=== PATIENT | female | born 1935 | race Caucasian/White ===

== ENCOUNTER 2017-09-13 08:00 | Outpatient (CLI) | payer MEDICARE, OTHER ==
[2017-09-13 19:03] LABS: BASOPHILS % (AUTO) 0.9 %; EOSINOPHILS # (AUTO) 0.2 10^3/uL (0.0-0.7); EOSINOPHILS % (AUTO) 4.6 %; HCT - HEMATOCRIT 41.9 % (37.0-47.0); HGB - HEMOGLOBIN 13.5 g/dL (12.0-16.0); LYMPHOCYTES # (AUTO) 1.3 10^3/uL (1.5-3.5); MEAN CORPUSCULAR HEMOGLOBIN 28.9 pg (27.0-31.0); MEAN CORPUSCULAR HGB CONC 32.2 g/dL (32.0-36.0); MEAN CORPUSCULAR VOLUME 89.6 fL (81.0-99.0); MEAN PLATELET VOLUME 9.1 fL (7.9-10.8); MONOCYTES # (AUTO) 0.5 10^3/uL (0.0-1.0); MONOCYTES % (AUTO) 9.5 %; NEUTROPHILS # (AUTO) 2.9 10^3/uL (1.5-6.6); RED BLOOD COUNT 4.68 10^6/uL (4.20-5.40); RED CELL DISTRIBUTION WIDTH 14.6 % (12.0-15.0)
[2017-09-13 19:38] LABS: ALBUMIN/GLOBULIN RATIO 1.3 (1.0-2.2); BILIRUBIN,TOTAL 0.5 mg/dL (0.2-1.0); BUN - BLOOD UREA NITROGEN 16 mg/dL (6-20); CALCIUM 8.9 mg/dL (8.5-10.3); CARBON DIOXIDE - CO2 25 mmol/L (21-32); CHLORIDE 108 mmol/L (101-111); CHOL/HDL RATIO 2.7 (<4.4); CHOLESTEROL 151 mg/dL; GFR - MDRD 53 (>89); GLUCOSE 96 mg/dL (70-100); HDL CHOLESTEROL 55 mg/dL; LDL/HDL RATIO 1.3 (<4.4); POTASSIUM 4.1 mmol/L (3.5-5.0); SODIUM 140 mmol/L (135-145); TOTAL PROTEIN 7.3 g/dL (6.7-8.2); TRIGLYCERIDES 113 mg/dL; VLDL CHOLESTEROL 23 mg/dL
== END 2017-09-13 08:01 | disposition home or self-care (01) ==
LOC: LAB.WCP 08:00
PROVIDERS: ATTEND Family Medicine
DX: E03.9 Hypothyroidism, unspecified (principal); I10 Essential (primary) hypertension; E78.5 Hyperlipidemia, unspecified; Z79.899 Other long term (current) drug therapy
CPT/HCPCS: 36415; 80053; 80061; 84443; 85025

== ENCOUNTER 2017-12-09 15:59 | Outpatient (CLI) | payer MEDICARE, OTHER | END 2017-12-09 16:00 | disposition home or self-care (01) | LOC: DI 15:59 | PROVIDERS: ATTEND Nurse Practitioner Adult Health | DX: Z53.9 Procedure and treatment not carried out, unspecified reason (principal) ==

== ENCOUNTER 2017-12-23 14:50 | Outpatient (CLI) | payer MEDICARE, OTHER ==
--- NOTE | 2017-12-23 16:47 | Mammography Report ---
DATE OF SERVICE: 12/23/2017 DIGITAL SCREENING MAMMOGRAM: 12/23/2017 CLINICAL INDICATION: An 82-year-old with personal history of right breast cancer, status post lumpectomy and radiation therapy, family history of breast cancer, for screening. COMPARISON: 10/2015, 08/2014, 02/2014, 08/2013, 12/2012, 04/2012, 03/2012, 03/2011. TECHNIQUE: Routine CC and MLO projections were obtained of the breasts. FINDINGS: The breasts again demonstrate scattered fibroglandular densities. Postoperative and posttreatment changes in the right breast are stable. Coarse and punctate, typically benign calcifications are present, No suspicious masses, clustered microcalcifications, or regions of architectural distortion are identified. IMPRESSION: BENIGN FINDINGS. RECOMMENDATION: ROUTINE ANNUAL SCREENING UNLESS OTHERWISE CLINICALLY INDICATED. BIRADS CATEGORY 2-BENIGN FINDINGS. STANDARD QUALIFYING STATEMENTS: 1. This examination was reviewed with the aid of Computer-Aided Detection (CAD). 2. A negative or benign imaging report should not delay biopsy if clinically suspicious findings are present. Consider surgical consultation if warranted. More than 5% of cancers are not identified by imaging. 3. Dense breasts may obscure an underlying neoplasm. TD: 12/23/2017 16:46
== END 2017-12-23 14:51 | disposition home or self-care (01) ==
LOC: DI 14:50
PROVIDERS: ATTEND Nurse Practitioner Adult Health
DX: Z12.31 Encounter for screening mammogram for malignant neoplasm of breast (principal); Z85.3 Personal history of malignant neoplasm of breast; Z80.3 Family history of malignant neoplasm of breast
CPT/HCPCS: 77067

== ENCOUNTER 2019-01-21 20:31 | Emergency (ER) | payer MEDICARE, OTHER ==
--- NOTE | 2019-01-21 20:42 | ED Physician Documentation ---
PD HPI LOWER EXT INJURY - Stated complaint Stated Complaint: FELL DOWN STAIRS/LT ANKLE PX - Chief complaint Chief Complaint: Trauma Ext - History obtained from History obtained from: Patient, Family - History of Present Illness PD HPI LOW EXT INJURY LOCATION: Left, Ankle Type of injury: Other (This is a 83 -year-old woman who was in [place] this morning. She slipped and slid down some stairs on her left ankle and now has moderate to severe left ankle pain although declines pain medication. There were no other injuries. She is unable to walk or bear weight.) Review of Systems Constitutional: reports: Reviewed and negative Cardiac: reports: Reviewed and negative Respiratory: reports: Reviewed and negative PD PAST MEDICAL HISTORY - Present Medications Home Medications: Ambulatory Orders Medication Instructions Recorded Confirmed Aspirin Chewable [St [place]bey 81 mg PO DAILY 03/02/14 01/21/19 Aspirin] Diphenhydramine HCl [Benadryl] 25 mg PO DAILY PRN 03/02/14 01/21/19 Levothyroxine [Synthroid] 75 mcg PO DAILY 03/02/14 01/21/19 Metoprolol Succinate 50 mg PO DAILY 03/02/14 01/21/19 [place]-3/Dha/Epa/Fish Oil [Fish Oil] 1,200 mg PO DAILY 03/02/14 01/21/19 Simvastatin 20 mg PO DAILY 03/02/14 01/21/19 - Allergies Allergies/Adverse Reactions: Allergies Allergy/AdvReac Type Severity Reaction Status Date / Time No Known Drug Allergies Allergy Verified 01/21/19 20:42 PD ED PE NORMAL - Vitals Vital signs reviewed: Yes - General General: Alert and oriented X 3, No acute distress - HEENT HEENT: PERRL, EOMI - Back Back: No CVA TTP, No spinal TTP - Derm Derm: Normal color, Warm and dry - Extremities Extremities: Other (She is quite tender over both malleoli with soft tissue swelling and bruising. There is no foot or calcaneal tenderness. No proximal fibular tenderness.) - Neuro Neuro: Alert and oriented X 3, Normal speech Results - Vitals Vitals: Vital Signs - 24 hr 01/21/19 20:35 Temperature 36.5 C Heart Rate 79 Respiratory 16 Rate Blood Pressure 149/60 H O2 Saturation 98 Oxygen O2 Source Room air - Rads (name of study) 3v L ankle Radiology: EMP read contemporaneously (There is a little chip fracture below the medial malleolus) PD MEDICAL DECISION MAKING - ED course ED course: This is an 83-year-old woman who presents with isolated left ankle injury today. X-rays show a little chip fracture which is really consistent with a ligamentous injury more than a significant fracture. She is really too old to be up on crutches safely and given the appearance and x-ray I think we can probably just put her in a boot and have her do limited weightbearing with a walker which she did well here. She declined pain medication. Departure - Departure Disposition: Home, Self Care Clinical Impression: Fractured medial malleolus Qualifiers: Encounter type: initial encounter Fracture type: closed Fracture alignment: nondisplaced Laterality: left Qualified Code(s): S82.55XA - Nondisplaced frac ture of medial malleolus of left tibia, initial encounter for closed fracture Condition: Good Record reviewed to determine appropriate education?: Yes Instructions: ED Fx Lower Ext Follow-Up: [facility] [Provider Group] - Within 1 week Comments: Tylenol as needed for pain, keep it elevated. As discussed this is a very mild fracture and I think it is fine to walk and bear weight with a walker and in the boot. He do not need to sleep in the boot. Call the orthopedic surgeon's office tomorrow for an appointment within the week. Return for new or worsening symptoms. Your blood pressure was elevated today on check into the emergency department. This does not mean that you have hypertension, it is a common phenomenon to come to the emergency department and have elevated blood pressure. I recommend that you see your primary care physician within the week to have it rechecked when you are feeling better.
[2019-01-21 20:45] VITALS: BP 149/60
--- NOTE | 2019-01-21 21:00 | XRAY Report ---
Reason: injury/GLF Procedure Date: 01/21/2019 Accession Number: [id number] / [id number] Procedure: XR - Ankle 3 View LT CPT Code: FULL RESULT: EXAM: LEFT ANKLE RADIOGRAPHY EXAM DATE: 01/21/2019 08:51 PM. CLINICAL HISTORY: Injury/GLF. COMPARISON: None. TECHNIQUE: 3 views. FINDINGS: Bones: 2 mm avulsion fracture from the tip of the medial malleolus. Distal fibula and talar dome appear intact. Joints: Normal. No effusion. No subluxations. The ankle mortise is normally aligned. Soft Tissues: Moderate medial and lateral ankle soft tissue swelling. IMPRESSION: 2 mm avulsion fracture from the tip of the medial malleolus. RADIA
== END 2019-01-21 21:34 | disposition home or self-care (01) ==
LOC: ED 20:31
DX: S82.55XA Nondisplaced fracture of medial malleolus of left tibia, initial encounter for closed fracture (principal); W10.9XXA Fall (on) (from) unspecified stairs and steps, initial encounter; R03.0 Elevated blood-pressure reading, without diagnosis of hypertension; Z79.82 Long term (current) use of aspirin
CPT/HCPCS: 99283

== ENCOUNTER 2019-04-02 11:21 | Outpatient (CLI) | payer MEDICARE, OTHER ==
[2019-04-02 19:01] LABS: BASOPHILS % (AUTO) 0.9 %; EOSINOPHILS # (AUTO) 0.2 10^3/uL (0.0-0.7); EOSINOPHILS % (AUTO) 5.5 %; HGB - HEMOGLOBIN 12.8 g/dL (12.0-16.0); LYMPHOCYTES # (AUTO) 1.2 10^3/uL (1.5-3.5); LYMPHOCYTES % (AUTO) 29.8 %; MEAN CORPUSCULAR HEMOGLOBIN 28.8 pg (27.0-31.0); MEAN CORPUSCULAR HGB CONC 31.9 g/dL (32.0-36.0); MEAN CORPUSCULAR VOLUME 90.2 fL (81.0-99.0); MEAN PLATELET VOLUME 9.4 fL (7.9-10.8); MONOCYTES # (AUTO) 0.3 10^3/uL (0.0-1.0); MONOCYTES % (AUTO) 8.3 %; NEUTROPHILS # (AUTO) 2.2 10^3/uL (1.5-6.6); NEUTROPHILS % (AUTO) 55.5 %; PLT - PLATELET COUNT 174 10^3/uL (130-450); RED BLOOD COUNT 4.44 10^6/uL (4.20-5.40); WHITE BLOOD COUNT 3.9 x10^3/uL (4.8-10.8)
[2019-04-02 19:20] LABS: ALBUMIN 3.5 g/dL (3.2-5.5); ALBUMIN/GLOBULIN RATIO 1.1 (1.0-2.2); ALKALINE PHOSPHATASE 78 IU/L (42-121); ALT ALANINE AMINOTRANSFERASE 12 IU/L (10-60); AST ASPARTATE AMINOTRANSFERASE 19 IU/L (10-42); BILIRUBIN,TOTAL 0.5 mg/dL (0.2-1.0); BUN - BLOOD UREA NITROGEN 18 mg/dL (6-20); CALCIUM 8.4 mg/dL (8.5-10.3); CARBON DIOXIDE - CO2 26 mmol/L (21-32); CHLORIDE 105 mmol/L (101-111); CHOL/HDL RATIO 2.5 (<4.4); CHOLESTEROL 150 mg/dL; GFR - MDRD 53 (>89); GLUCOSE 97 mg/dL (70-100); HDL CHOLESTEROL 59 mg/dL; LDL CHOLESTEROL,CALCULATED 73 mg/dL; LDL/HDL RATIO 1.2 (<4.4); SODIUM 141 mmol/L (135-145); TOTAL PROTEIN 6.6 g/dL (6.7-8.2); VLDL CHOLESTEROL 18 mg/dL
== END 2019-04-02 11:22 | disposition home or self-care (01) ==
LOC: LAB.WCP 11:21
PROVIDERS: ATTEND Family Medicine
DX: I10 Essential (primary) hypertension (principal); E78.5 Hyperlipidemia, unspecified; E03.9 Hypothyroidism, unspecified
CPT/HCPCS: 36415; 80053; 80061; 83721; 84443; 85025

== ENCOUNTER 2019-09-11 14:52 | Outpatient (CLI) | payer MEDICARE, OTHER ==
--- NOTE | 2019-09-11 15:21 | XRAY Report ---
Reason: RIGHT LUMBAR RADICULOPATHY Procedure Date: 09/11/2019 Accession Number: [id number] / [id number] Procedure: WCP - Lumbar Spine 2 View CPT Code: FULL RESULT: EXAM: LUMBOSACRAL SPINE RADIOGRAPHY EXAM DATE: 09/11/2019 02:52 PM. CLINICAL HISTORY: Right lumbar radiculopathy. COMPARISONS: None. TECHNIQUE: 3 views. FINDINGS: Alignment: Grade 1 anterolisthesis of L4 on L5. Alignment elsewhere within normal limits. Bones: Five vol-nvm-ksfnmnp lumbar vertebral bodies are present. No fractures or bone lesions. No significant vertebral body endplate osteophytic spurring. Disks: Mild to moderate disk space narrowing L4-L5. Facets: Mild to moderate hypertrophic changes at the facet articulations bilaterally L4-L5 and L5-S1. Sacroiliac Joints: Unremarkable. Soft Tissues: Normal. The visualized bowel gas pattern is normal. IMPRESSION: Grade 1 anterolisthesis L4 on L5. Mild to moderate degenerative changes lower lumbar spine. RADIA
--- NOTE | 2019-09-11 15:27 | XRAY Report ---
Reason: RIGHT HIP PAIN Procedure Date: 09/11/2019 Accession Number: [id number] / [id number] Procedure: WCP - Hip 1 View RT CPT Code: FULL RESULT: EXAM: PELVIS FOR RIGHT HIP RADIOGRAPHY, TWO VIEWS EXAM DATE: 09/11/2019 02:52 PM. CLINICAL HISTORY: 83-year-old female post fall onto right side, now with right-sided radiculopathy, right hip and groin pain COMPARISON: None. TECHNIQUE: AP view the pelvis and both hips and frog-leg lateral view right hip. FINDINGS: Bones: Minor hypertrophic changes femoral heads bilaterally. No fractures or bone lesion. Joints: Slight narrowing right hip joint. No subluxation or joint effusion. Soft Tissues: Normal. No soft tissue swelling. IMPRESSION: No acute process or posttraumatic abnormality. Mild osteoarthritis right hip. RADIA
== END 2019-09-11 23:59 | disposition home or self-care (01) ==
LOC: DI.WCP 14:52
PROVIDERS: ATTEND Family Medicine
DX: M51.36 Other intervertebral disc degeneration, lumbar region (principal); M47.816 Spondylosis without myelopathy or radiculopathy, lumbar region; M47.817 Spondylosis without myelopathy or radiculopathy, lumbosacral region; M43.16 Spondylolisthesis, lumbar region
CPT/HCPCS: 72100

== ENCOUNTER 2019-10-03 12:54 | Outpatient (CLI) | payer MEDICARE, OTHER ==
--- NOTE | 2019-10-04 13:55 | MRI Report ---
Reason: Radiculopathy Procedure Date: 10/03/2019 Accession Number: [id number] / [id number] Procedure: MRI - Lumbar Spine W/O CPT Code: Final Report FULL RESULT: EXAM: MRI LUMBAR SPINE WITHOUT CONTRAST EXAM DATE: 10/03/2019 02:00 PM. CLINICAL HISTORY: 83-year-old female. Radiculopathy. COMPARISON: LUMBAR SPINE 2 VIEW 09/11/2019 2:16 PM. TECHNIQUE: Multiplanar, multisequence T1-weighted and fluid-sensitive sequences of the lumbar spine from T12 to S1 without contrast. Other: None. FINDINGS: Spinal Canal: The conus terminates at L2. The conus medullaris and cauda equina are unremarkable. Alignment: Grade 1 anterolisthesis L3 on L4 measuring 5 mm. Grade 1 anterolisthesis L4 on L5 measuring 7 mm. Bone Marrow: Five iag-vgp-estuiks lumbar vertebral bodies are assumed. No gross fractures or bone lesions. Modic type I degenerative endplate changes at L2-L3 level with endplate edema. Disk Levels/Facets: T12-L1: Unremarkable. L1-L2: Mild diffuse disk bulge. No significant central canal narrowing. No foraminal narrowing. L2-L3: Mild diffuse disk posterior. Mild bilateral facet arthropathy. No significant central canal narrowing. Mild to moderate bilateral foraminal narrowing. L3-L4: Moderate disk height loss and desiccation. Moderate diffuse disk bulge. Moderate bilateral facet arthropathy. Mild to moderate central canal narrowing. Moderate left and iiyo-cn-yyrxztjs right foraminal narrowing. L4-L5: Moderate disk height loss and desiccation. Moderate diffuse disk bulge with superimposed right foraminal protrusion measuring 6 mm. Moderate bilateral facet arthropathy. Mild central canal narrowing. Moderate right foraminal narrowing. Mild left foraminal narrowing. In addition, the right foraminal protrusion may have mass-effect on the exiting right L4 nerve at this level. L5-S1: Mild diffuse disk bulge. Mild to moderate right and moderate left facet arthropathy. No significant central canal narrowing. Moderate bilateral foraminal narrowing. Musculature: Normal. No edema or fatty atrophy. Other: There is a 3.3 cm exophytic T2 hyperintense lesion arising from the left kidney. Similar smaller lesions arising from the right kidney. These are nonspecific and incompletely assessed, may represent simple cysts. The partially visualized abdomen, pelvis, and retroperitoneum are otherwise unremarkable. IMPRESSION: 1. Moderate multilevel degenerative spondylosis, as detailed above and summarized below. No acute fracture or traumatic subluxation. No cord signal abnormality. 2. Modic type I degenerative endplate changes at L2-L3 level with endplate edema. Modic type I changes may represent a source of pain. 3. L2-L3: No significant central canal narrowing. Mild to moderate bilateral foraminal narrowing. 4. L3-L4: Mild to moderate central canal narrowing. Moderate left and oyfl-ee-dncoefyz right foraminal narrowing. Recommend correlation for left L3 radicular symptoms. 5. L4-L5: Mild central canal narrowing. Moderate right foraminal narrowing. Mild left foraminal narrowing. In addition, the right foraminal protrusion may have mass-effect on the exiting right L4 nerve at this level. Recommend correlation for right L4 radicular symptoms. 6. L5-S1: No significant central canal narrowing. Moderate bilateral foraminal narrowing. Recommend correlation for bilateral L5 radicular symptoms. Comment: The following findings are so common in adults without low back pain that while we report their presence, they must be interpreted with caution and in the context of the clinical situation. (Reference Judyk et al, Spine 2001) Prevalence of findings in patients without low back pain: Disk degeneration (any evidence): 92% Disk desiccation/T2 signal loss: 83% Disk height loss: 56% Disk bulge: 64% Disk protrusion: 32% Annular tear/high intensity zone: 38% RADIA
== END 2019-10-03 12:55 | disposition home or self-care (01) ==
LOC: DI 12:54
PROVIDERS: ATTEND Family Medicine
DX: M47.26 Other spondylosis with radiculopathy, lumbar region (principal); M48.061 Spinal stenosis, lumbar region without neurogenic claudication; C50.919 Malignant neoplasm of unspecified site of unspecified female breast
CPT/HCPCS: 72148

== ENCOUNTER 2019-10-11 14:36 | Outpatient (CLI) | payer MEDICARE, OTHER ==
--- NOTE | 2019-10-12 00:38 | Ultrasound Report ---
Reason: KIDNEY CYST Procedure Date: 10/11/2019 Accession Number: [id number] / [id number] Procedure: US - Retroperitoneal CPT Code: Final Report FULL RESULT: EXAM: RENAL ULTRASOUND EXAM DATE: 10/11/2019 03:37 PM. CLINICAL HISTORY: Kidney cyst. COMPARISON: None. TECHNIQUE: Real-time scanning was performed with static images obtained. FINDINGS: Right Kidney: 9.7 x 4.2 x 5 cm. Normal echotexture with no stones, contour-deforming masses, or hydronephrosis. Simple cyst at the superolateral aspect of the right kidney measuring 1 x 1.1 x 1.2 cm. Left Kidney: 8.5 x 4.9 x 3.9 cm. Normal echotexture. No suspicious masses. Simple cyst arising from the inferior lateral aspect of the left kidney measuring 2.7 x 2.4 x 2.7 cm. Multiple echogenic foci in the left kidney likely representing nonobstructing stones with the largest measuring 5 x 5 x 5 mm. Bladder: Bilateral jets seen. The prevoid bladder volume was 217 cc. The postvoid bladder volume was 0 cc. Other: None. IMPRESSION: 1. No acute finding sonographically including no evidence of hydronephrosis. 2. Bilateral ureteral jets identified. 3. Several echogenic foci likely representing non-obstructing stones in the left kidney with the largest measuring up to 5 mm in diameter. 4. Simple cyst arising from the superolateral aspect of the right kidney measuring 1 x 1.1 x 1.2 cm. 5. Simple cyst arising from the inferolateral aspect of the left kidney measuring 2.7 x 2.4 x 2.7 cm. 6. Complete emptying of the urinary bladder. RADIA
== END 2019-10-11 14:37 | disposition home or self-care (01) ==
LOC: DI 14:36
PROVIDERS: ATTEND Family Medicine
DX: N28.1 Cyst of kidney, acquired (principal); N20.0 Calculus of kidney
CPT/HCPCS: 76770

== ENCOUNTER 2020-04-21 09:27 | Outpatient (CLI) | payer MEDICARE, OTHER ==
--- NOTE | 2020-04-21 17:40 | Nuclear Medicine Report ---
Reason: BREAST CA, RIGHT HIP AND KNEE PAIN Procedure Date: 04/21/2020 Accession Number: [id number] / [id number] Procedure: NM - Bone Whole Body CPT Code: Final Report FULL RESULT: PROCEDURE: Bone Whole Body INDICATIONS: BREAST CA, RIGHT HIP AND KNEE PAIN RADIOPHARMACEUTICAL: 31.5 mCi Tc-99m MDP i.v. TECHNIQUE: Delayed whole-body scintigrams were obtained approximately 2 hours after intravenous injection of Tc-99m MDP. Additional left and right oblique views of the head and neck were obtained. COMPARISON: None. FINDINGS: There is intense uptake centered to the right hip. There are foci of increased periarticular activity, involving shoulders bilaterally, left elbow, wrists bilaterally, left hip, both knees, left ankle and both feet, consistent with degenerative and arthritic changes. Focal uptake at the sternomanubrial junction is likely degenerative in nature. Low level increased activity in lumbar spine is most likely degenerative. IMPRESSION: 1. Intense abnormal uptake in the right hip. The scintigraphic findings nonspecific and may be secondary to severe arthritic change, osteonecrosis and metastatic disease. Recommend radiographic correlation. 2. Increased uptake in lumbar spine and multiple peripheral joints are most likely degenerative/arthritic in nature. If clinically indicated, radiographs may be obtained for correlation. Reviewed by: Juan Carlos Garcia MD on 04/21/2020 5:39 PM PDT Approved by: Juan Carlos Garcia MD on 04/21/2020 5:39 PM PDT Station ID: [id number]
== END 2020-04-21 09:28 | disposition home or self-care (01) ==
LOC: DI 09:27
PROVIDERS: ATTEND Family Medicine
DX: C50.919 Malignant neoplasm of unspecified site of unspecified female breast (principal); R93.6 Abnormal findings on diagnostic imaging of limbs; R93.7 Abnormal findings on diagnostic imaging of other parts of musculoskeletal system; M25.551 Pain in right hip; M25.561 Pain in right knee
CPT/HCPCS: 78306; A9503

== ENCOUNTER 2020-04-23 14:56 | Outpatient (CLI) | payer MEDICARE, OTHER ==
--- NOTE | 2020-04-23 16:26 | XRAY Report ---
Reason: HIP PAIN,RIGHT ,KNEE PAIN RIGHT Procedure Date: 04/23/2020 Accession Number: [id number] / [id number] Procedure: XR - Knee 2 View RT CPT Code: Final Report FULL RESULT: PROCEDURE: Knee 2 View RT INDICATIONS: HIP PAIN,RIGHT ,KNEE PAIN RIGHT TECHNIQUE: 2 views of the right knee(s) were acquired. COMPARISON: None. FINDINGS: Bones: No acute fractures or dislocations. Tricompartmental degenerative changes of the right knee. No suspicious bony lesions. Soft tissues: No substantial joint effusion. No suspicious soft tissue calcifications. IMPRESSION: Tricompartmental right knee osteoarthrosis. No acute fracture. Reviewed by: Alonzo Patrick MD on 04/23/2020 4:25 PM PDT Approved by: Alonzo Patrick MD on 04/23/2020 4:25 PM PDT Station ID: [id number]
--- NOTE | 2020-04-23 16:35 | XRAY Report ---
Reason: HIP PAIN,RIGHT ,KNEE PAIN RIGHT Procedure Date: 04/23/2020 Accession Number: [id number] / [id number] Procedure: XR - Hip w/Pelvis 2-3V RT CPT Code: Final Report FULL RESULT: PROCEDURE: Hip w/Pelvis 2-3V RT INDICATIONS: HIP PAIN,RIGHT ,KNEE PAIN RIGHT TECHNIQUE: AP pelvis with lateral view(s) of the bilateral hip(s). COMPARISON: None. FINDINGS: Bones: No acute fractures or dislocations. Degenerative changes of the left hip are again noted. Significant progression of now severe degenerative changes of the right hip with flattening of the right femoral head and remodeling of the acetabulum. Sclerosis and subchondral cystic change noted on both sides of the joint. No suspicious mass or suspicious intraosseous lesions in the right hip. Pelvic ring appears intact. No suspicious bony lesions. Soft tissues: The visualized bowel gas pattern is normal. No suspicious soft tissue calcifications. IMPRESSION: 1. Interval progression of now severe osteoarthritic changes of the right hip with flattening of the right femoral head and remodeling of the acetabulum. There is near complete joint space loss. 2. Left hip osteoarthrosis. Reviewed by: Alonzo Patrick MD on 04/23/2020 4:33 PM PDT Approved by: Alonzo Patrick MD on 04/23/2020 4:33 PM PDT Station ID: [id number]
== END 2020-04-23 14:57 | disposition home or self-care (01) ==
LOC: DI 14:56
PROVIDERS: ATTEND Family Medicine
DX: M17.11 Unilateral primary osteoarthritis, right knee (principal); M16.0 Bilateral primary osteoarthritis of hip
CPT/HCPCS: 77063

== ENCOUNTER 2020-05-28 13:34 | Outpatient (CLI) | payer MEDICARE, OTHER ==
[2020-05-28 14:13] LABS: CREATININE 1.1 mg/dL (0.4-1.0)
[2020-05-28] MEDS ORDERED: GADOBUTROL 7.5 MMOL/7.5 ML VIAL ONE (14:33)
--- NOTE | 2020-05-28 18:55 | XRAY Report ---
PROCEDURE: Knee 3 View BILAT INDICATIONS: RT HIP PAIN TECHNIQUE: 3 views of the left and 3 views of the right knee(s) were acquired. COMPARISON: None. FINDINGS: Bones: No fractures or dislocations. No suspicious bony lesions. There is joint space narrowing, s ubchondral sclerosis and periarticular osteophyte consistent with osteoarthritis, left more than righ t. Soft tissues: No joint effusion. No suspicious soft tissue calcifications. IMPRESSION: Bilateral osteoarthritis, left worse than right. Reviewed by: Juan Carlos Garcia MD on 05/28/2020 6:54 PM PDT Approved by: Juan Carlos Garcia MD on 05/28/2020 6:54 PM PDT Station ID: [id number]
--- NOTE | 2020-05-30 09:14 | MRI Report ---
PROCEDURE: Hip RT W/O INDICATIONS: RT HIP PAIN TECHNIQUE: Noncontrast coronal T2 turbo spin echo through the bony pelvis. Axial and sagittal T2 turbo spin echo through the hip. COMPARISON: Right hip radiographs dated 04/23/2020 FINDINGS: Image quality: The exam is incomplete as the patient terminated the exam early secondary to pain. So me diagnostic information is obtained from the available sequences. Bones and joints: There is collapse of the superior articular surface of the right femoral head with associated severe degenerative changes including full-thickness cartilage loss, remodeling of the ar ticular surfaces, and marginal osteophyte formation. Findings may be secondary to chronic osteonecros is and/or prior trauma versus less likely from primary osteoarthrosis. Evaluation for intraosseous ma sses and acute trabecular bone injury is compromised due to early termination of the exam. There is m ild disc desiccation and facet hypertrophy and the included portion of the lower lumbar spine. Mild d egenerative changes are seen in the contralateral left hip. Tendons: The gluteus medius and minimus tendons appear intact, without associated muscle atrophy. T he iliopsoas tendon appears intact, without adjacent bursal fluid collections. The origin of the ham string tendon is intact at the ischial tuberosity. Labrum and cartilage: There is diffuse degeneration of the acetabular labrum. Full-thickness cartilag e loss is seen in the right hip. Soft tissues: There is generalized mild fatty infiltration of the musculature surrounding the hips. B ladder wall thickness is normal. Genitourinary structures and bowel loops appear normal where visual ized. IMPRESSION: Please note that the patient terminated the exam early secondary to pain, and only nonfat-suppressed T2-weighted images were obtained. 1. Collapse of the superior articular surface of the right femoral head may be secondary to chronic avascular necrosis and/or prior trauma with associated secondary severe degenerative changes includin g full-thickness cartilage loss, marginal osteophyte formation, and remodeling of the articular surfa tray. 2. Mild degenerative changes in the included portion of the lower lumbar spine. Reviewed by: Jhonatan Villeda MD on 05/30/2020 9:13 AM PDT Approved by: Jhonatan Villeda MD on 05/30/2020 9:13 AM PDT Station ID: [id number]
== END 2020-05-28 13:35 | disposition home or self-care (01) ==
LOC: LAB 13:34
PROVIDERS: ATTEND Physician Assistant
DX: R93.6 Abnormal findings on diagnostic imaging of limbs (principal); M16.7 Other unilateral secondary osteoarthritis of hip; M25.751 Osteophyte, right hip; M94.251 Chondromalacia, right hip; M17.0 Bilateral primary osteoarthritis of knee; M47.816 Spondylosis without myelopathy or radiculopathy, lumbar region; M51.36 Other intervertebral disc degeneration, lumbar region; C50.919 Malignant neoplasm of unspecified site of unspecified female breast
CPT/HCPCS: 36415; 82565

== ENCOUNTER 2020-08-10 13:04 | Outpatient (CLI) | payer MEDICARE, OTHER | END 2020-08-10 13:05 | disposition home or self-care (01) | LOC: DI 13:04 | PROVIDERS: ATTEND Family Medicine | DX: I08.0 Rheumatic disorders of both mitral and aortic valves (principal) | CPT/HCPCS: 93306 ==

== ENCOUNTER 2020-08-18 14:43 | Outpatient (CLI) | payer MEDICARE, OTHER ==
[2020-08-18 18:36] LABS: ALBUMIN 3.8 g/dL (3.2-5.5); ALBUMIN/GLOBULIN RATIO 1.1 (1.0-2.2); ALKALINE PHOSPHATASE 87 IU/L (42-121); ALT ALANINE AMINOTRANSFERASE 14 IU/L (10-60); AST ASPARTATE AMINOTRANSFERASE 18 IU/L (10-42); BILIRUBIN,TOTAL 0.7 mg/dL (0.2-1.0); BUN - BLOOD UREA NITROGEN 23 mg/dL (6-20); CALCIUM 9.1 mg/dL (8.5-10.3); CARBON DIOXIDE - CO2 27 mmol/L (21-32); CHLORIDE 104 mmol/L (101-111); CHOL/HDL RATIO 2.1 (<4.4); CHOLESTEROL 144 mg/dL; CREATININE 1.2 mg/dL (0.4-1.0); GLUCOSE 82 mg/dL (70-100); HDL CHOLESTEROL 67 mg/dL; LDL CHOLESTEROL,CALCULATED 50 mg/dL; LDL/HDL RATIO 0.7 (<4.4); SODIUM 138 mmol/L (135-145); TOTAL PROTEIN 7.3 g/dL (6.7-8.2); VLDL CHOLESTEROL 27 mg/dL
[2020-08-18 18:37] LABS: BASOPHILS % (AUTO) 0.4 %; EOSINOPHILS # (AUTO) 0.3 10^3/uL (0.0-0.7); EOSINOPHILS % (AUTO) 5.7 %; LYMPHOCYTES # (AUTO) 1.2 10^3/uL (1.5-3.5); LYMPHOCYTES % (AUTO) 24.9 %; MEAN CORPUSCULAR HEMOGLOBIN 28.6 pg (27.0-31.0); MEAN CORPUSCULAR VOLUME 92.2 fL (81.0-99.0); MEAN PLATELET VOLUME 11.8 fL (7.9-10.8); MONOCYTES # (AUTO) 0.4 10^3/uL (0.0-1.0); MONOCYTES % (AUTO) 9.1 %; NEUTROPHILS # (AUTO) 2.8 10^3/uL (1.5-6.6); NEUTROPHILS % (AUTO) 59.7 %; PLT - PLATELET COUNT 203 10^3/uL (130-450); RED BLOOD COUNT 3.85 10^6/uL (4.20-5.40); RED CELL DISTRIBUTION WIDTH 13.5 % (12.0-15.0); WHITE BLOOD COUNT 4.7 x10^3/uL (4.8-10.8)
== END 2020-08-18 23:59 | disposition home or self-care (01) ==
LOC: LAB.WCP 14:43
PROVIDERS: ATTEND Family Medicine
DX: I10 Essential (primary) hypertension (principal); E03.9 Hypothyroidism, unspecified
CPT/HCPCS: 36415; 80053; 80061; 83721; 84443; 85025

== ENCOUNTER 2020-08-28 21:39 | Outpatient (CLI) | payer MEDICARE, OTHER | END 2020-08-28 21:40 | disposition critical access hospital (66) | LOC: EMS 21:39 | PROVIDERS: ATTEND Surgery | DX: R55 Syncope and collapse (principal) | CPT/HCPCS: A0425; A0427 ==

== ENCOUNTER 2020-08-28 21:55 | Emergency (ER) | payer MEDICARE, OTHER ==
[2020-08-28 22:20] LABS: BASOPHILS % (AUTO) 0.4 %; EOSINOPHILS # (AUTO) 0.3 10^3/uL (0.0-0.7); EOSINOPHILS % (AUTO) 5.3 %; HGB - HEMOGLOBIN 10.6 g/dL (12.0-16.0); LYMPHOCYTES # (AUTO) 0.8 10^3/uL (1.5-3.5); LYMPHOCYTES % (AUTO) 16.8 %; MEAN CORPUSCULAR HEMOGLOBIN 30.2 pg (27.0-31.0); MEAN CORPUSCULAR HGB CONC 33.3 g/dL (32.0-36.0); MEAN CORPUSCULAR VOLUME 90.6 fL (81.0-99.0); MONOCYTES # (AUTO) 0.4 10^3/uL (0.0-1.0); MONOCYTES % (AUTO) 8.4 %; NEUTROPHILS # (AUTO) 3.4 10^3/uL (1.5-6.6); NEUTROPHILS % (AUTO) 68.9 %; PLT - PLATELET COUNT 181 10^3/uL (130-450); RED BLOOD COUNT 3.51 10^6/uL (4.20-5.40); RED CELL DISTRIBUTION WIDTH 13.4 % (12.0-15.0); WHITE BLOOD COUNT 4.9 x10^3/uL (4.8-10.8)
[2020-08-28] MEDS ORDERED: SODIUM CHLORIDE 0.9% 1,000 ML IV STA ×2 (22:25→22:36)
[2020-08-28 22:32] LABS: ALBUMIN 3.7 g/dL (3.2-5.5); ALBUMIN/GLOBULIN RATIO 1.2 (1.0-2.2); BILIRUBIN,TOTAL 0.4 mg/dL (0.2-1.0); CALCIUM 8.4 mg/dL (8.5-10.3); CREATININE 1.5 mg/dL (0.4-1.0); TOTAL PROTEIN 6.8 g/dL (6.7-8.2)
--- NOTE | 2020-08-29 00:01 | ED Physician Documentation ---
PD HPI SYNCOPE - Stated complaint Stated Complaint: SYNCOPE - Chief complaint Chief Complaint: Neuro - History obtained from History obtained from: Patient, Family - History of Present Illness Witnessed: Witnessed Timing - onset: Today Preceding symptoms: None Associated symptoms: Vision changes Contributing factors: Decreased PO intake Injury occurred: None Similar symptoms before: Has not had sx before Recently seen: Clinic - Additional information Additional information: 84 y/o female with a history of aortic stenosis was having dinner with her family and when she finished she went to bring her things to the sink and she was on her walker and had a syncopal episode. She recovered quickly and was transported by ambulance. She denies current complaints. She is getting ready to see the unloader in work up to get a hip replacement. Review of Systems Constitutional: denies: Fever Eyes: denies: Decreased vision Ears: denies: Ear pain Nose: denies: Congestion Throat: denies: Sore throat Cardiac: denies: Chest pain / pressure, Palpitations Respiratory: denies: Dyspnea, Cough GI: denies: Nausea, Vomiting, Diarrhea : denies: Dysuria, Frequency PD PAST MEDICAL HISTORY - Past Medical History Past Medical History: Yes Cardiovascular: Hypertension, High cholesterol Endocrine/Autoimmune: HyPOthyroidism - Past Surgical History Past Surgical History: Yes HEENT: Cataracts - Present Medications Home Medications: Ambulatory Orders Medication Instructions Recorded Confirmed Aspirin Chewable [St Obey 81 mg PO DAILY 03/02/14 01/21/19 Aspirin] Levothyroxine [Synthroid] 75 mcg PO DAILY 03/02/14 01/21/19 Metoprolol Succinate 50 mg PO DAILY 03/02/14 01/21/19 [place]-3/Dha/Epa/Fish Oil [Fish Oil] 1,200 mg PO DAILY 03/02/14 01/21/19 Simvastatin 20 mg PO DAILY 03/02/14 01/21/19 diphenhydrAMINE HCl [Benadryl] 25 mg PO DAILY PRN 03/02/14 01/21/19 - Allergies Allergies/Adverse Reactions: Allergies Allergy/AdvReac Type Severity Reaction Status Date / Time lisinopril Allergy Unknown Verified 08/28/20 22:04 metoprolol Allergy Unknown Verified 08/28/20 22:04 - Social History Does the pt smoke?: Yes Smoking Status: Current every day smoker Does the pt drink ETOH?: No Does the pt have substance abuse?: No - Immunizations Immunizations are current?: Yes - POLST Patient has POLST: No PD ED PE NORMAL - Vitals Vital signs reviewed: Yes (hypertensive mld ) - HEENT HEENT: Atraumatic, PERRL, EOMI - Neck Neck: Supple, no meningeal sign, No bony TTP - Cardiac Cardiac: RRR, Other (2/6 holosystolic murmer at LSB) - Respiratory Respiratory: No respiratory distress, Clear bilaterally - Abdomen Abdomen: Soft, Non tender - Back Back: No CVA TTP, No spinal TTP - Derm Derm: Normal color, Warm and dry, No rash - Extremities Extremities: No deformity, No edema - Neuro Neuro: Alert and oriented X 3, coal handler 2-12 intact, No motor deficit, No sensory deficit, Normal speech Eye Opening: Spontaneous Motor: Obeys Commands Verbal: Oriented GCS Score: 15 - Psych Psych: Normal mood, Normal affect Results - Vitals Vitals: Vital Signs - 24 hr 08/28/20 08/29/20 21:55 00:06 Temperature 36.5 C Heart Rate 83 81 Respiratory 18 Rate Blood Pressure 140/68 H 154/67 H O2 Saturation 98 Oxygen O2 Source Room air - EKG (time done) 2159 Rate: Rate (enter#) (81) Rhythm: NSR Ischemia: Normal ST segments Compare to prior EKG: Old EKG unavailable Computer interpretation: Agree with computer - Labs Labs: Laboratory Tests 08/28/20 08/28/20 08/28/20 22:15 22:15 22:15 WBC 4.9 RBC 3.51 L Hgb 10.6 L Hct 31.8 L MCV 90.6 MCH 30.2 MCHC 33.3 RDW 13.4 Plt Count 181 MPV 9.0 Neut # (Auto) 3.4 Lymph # (Auto) 0.8 L [place] # (Auto) 0.4 Eos # (Auto) 0.3 Baso # (Auto) 0.0 Absolute Nucleated RBC 0.00 Nucleated RBC % 0.0 Sodium 138 Potassium 4.3 Chloride 105 Carbon Dioxide 25 Anion Gap 8.0 BUN 26 H Creatinine 1.5 H Estimated GFR (MDRD) 33 L Glucose 170 H Calcium 8.4 L Total Bilirubin 0.4 AST 18 ALT 12 Alkaline Phosphatase 86 Troponin I High Sens 4.9 Total Protein 6.8 Albumin 3.7 Globulin 3.1 Albumin/Globulin Ratio 1.2 Lipase 45 Urine Color Urine Clarity Urine pH Ur Specific Whitt Urine Protein Urine Glucose (UA) Urine Ketones Urine Occult Blood Urine Nitrite Urine Bilirubin Urine Urobilinogen Ur Leukocyte Esterase Ur Microscopic Review Urine Culture Comments 08/29/20 00:04 WBC RBC Hgb Hct MCV MCH MCHC RDW Plt Count MPV Neut # (Auto) Lymph # (Auto) [place] # (Auto) Eos # (Auto) Baso # (Auto) Absolute Nucleated RBC Nucleated RBC % Sodium Potassium Chloride Carbon Dioxide Anion Gap BUN Creatinine Estimated GFR (MDRD) Glucose Calcium Total Bilirubin AST ALT Alkaline Phosphatase Troponin I High Sens Total Protein Albumin Globulin Albumin/Globulin Ratio Lipase Urine Color YELLOW Urine Clarity CLEAR Urine pH 6.0 Ur Specific Whitt 1.015 Urine Protein NEGATIVE Urine Glucose (UA) NEGATIVE Urine Ketones NEGATIVE Urine Occult Blood NEGATIVE Urine Nitrite NEGATIVE Urine Bilirubin NEGATIVE Urine Urobilinogen 0.2 (NORMAL) Ur Leukocyte Esterase NEGATIVE Ur Microscopic Review NOT INDICATED Urine Culture Comments NOT INDICATED - Rads (name of study) chest Radiology: Prelim report reviewed (nad) Procedures - IVC sono (time) 220 Bedside IVC sono: IVC measures (cm) (1.01), IVC collapsed c insp (cm) (complete), Dehydration (est 2 liter deficit (has been given 500ml prior to interrogation)) PD MEDICAL DECISION MAKING - ED course Complexity details: reviewed old records, reviewed results, re-evaluated patient, considered differential, d/w patient, d/w family ED course: 84 y/o female with a history of aortic stenosis is dehydrated and she has had a syncopal episode today. She is administered IV saline 2 liters and the remainder of her work up is unremarkable. Departure - Departure Disposition: 01 Home, Self Care Clinical Impression: Dehydration Syncope Qualifiers: Syncope type: unspecified Qualified Code(s): R55 - Syncope and collapse Condition: Stable Follow-Up: Neo Gonzalez DO [Primary Care Provider] - Discharge Date/Time: 08/29/20 02:06
[2020-08-29 00:07] VITALS: BP 154/67
[2020-08-29 00:11] LABS: BILIRUBIN,URINE NEGATIVE (NEGATIVE); CLARITY,URINE CLEAR (CLEAR); GLUCOSE, URINE (UA) NEGATIVE (NEGATIVE); KETONES,URINE (UA) NEGATIVE (NEGATIVE); LEUKOCYTE ESTERASE, URINE NEGATIVE (NEGATIVE); NITRITE,URINE NEGATIVE (NEGATIVE); OCCULT BLOOD,URINE NEGATIVE (NEGATIVE); PROTEIN,URINE NEGATIVE (NEGATIVE); UROBILINOGEN,URINE 0.2 (NORMAL) E.U./dL (NORMAL)
--- NOTE | 2020-08-29 16:18 | XRAY Report ---
PROCEDURE: Chest 1 View X-Ray INDICATIONS: syncope, aortic stenosis TECHNIQUE: One view of the chest was acquired. COMPARISON: None FINDINGS: Surgical changes and devices: None. Lungs and pleura: No pleural effusions or pneumothorax. Lungs are clear. Mediastinum: Mediastinal contours appear normal. Heart size is mildly enlarged. Bones and chest wall: No suspicious bony lesions. Overlying soft tissues appear unremarkable. IMPRESSION: No acute pulmonary process. The above findings are concordant with preliminary report. Reviewed by: Princess Morales MD on 08/29/2020 8:22 AM PDT Approved by: Princess Morales MD on 08/29/2020 8:22 AM PDT Station ID: [id number]
== END 2020-08-29 02:06 | disposition home or self-care (01) ==
LOC: EDUNIT# → ED 21:55
DX: E86.0 Dehydration (principal); R55 Syncope and collapse; I35.0 Nonrheumatic aortic (valve) stenosis; I10 Essential (primary) hypertension; Z79.82 Long term (current) use of aspirin; F17.200 Nicotine dependence, unspecified, uncomplicated
CPT/HCPCS: 36415; 71045; 80053; 81001; 81003; 83690; 84484; 85025; 87086; 93005; 96360; 99283

== ENCOUNTER 2020-12-16 08:00 | Outpatient (CLI) | payer MEDICARE, OTHER | END 2020-12-16 23:59 | disposition home or self-care (01) | LOC: LAB.N 08:00 | PROVIDERS: ATTEND Orthopaedic Surgery | DX: Z01.812 Encounter for preprocedural laboratory examination (principal); Z20.822 Contact with and (suspected) exposure to COVID-19 ==

== ENCOUNTER 2020-12-21 06:24 | Observation (INO) | payer MEDICARE, OTHER ==
[~2020-12-21 06:24] MED LIST: ACETAMINOPHEN 1,000 MG/100 ML 100 ML IV ONE
[2020-12-21] MEDS ORDERED: CELECOXIB 100 MG CAPSULE PO ONE (06:25)
[2020-12-21] MEDS ORDERED: DEXAMETHASONE 10 MG/ML VIAL ONE (06:26)
[2020-12-21] MEDS ORDERED: LACTATED RINGERS 1,000 ML IV ONE ×2 (06:31→11:18)
[2020-12-21] MEDS ORDERED: MIDAZOLAM 2 MG/2 ML VIAL ONE (07:06)
[2020-12-21] MEDS ORDERED: ePHEDrine 50 MG/ML VIAL IVP ONE (07:07)
[2020-12-21] MEDS ORDERED: SODIUM CHLORIDE 0.9% 10 ML ONE (07:07)
[2020-12-21] MEDS ORDERED: PROPOFOL 200 MG/20 ML VIAL IVP ONE ×2 (07:08→09:22)
--- NOTE | 2020-12-21 07:31 | ANESTHESIA ---
Pre-Anesthesia VS, & Labs - Diagnosis R hip OA - Procedure R VINAY Vital Signs: Temp Pulse Resp BP Pulse Ox 36.4 C L 83 18 189/74 H 98 12/21/20 06:39 12/21/20 06:39 12/21/20 06:39 12/21/20 06:39 12/21/20 06:39 Height: 4 ft 11 in Weight (kg): 70 kg Body Mass Index: 31.1 BMI Classification: Obese - NPO >8 hours - Is Patient ?: No - Lab Results Current Lab Results: Laboratory Tests 12/21/20 07:19: POC Whole Bld Glucose 76 Lab results reviewed: Yes Home Medications and Allergies Home Medications: Ambulatory Orders Acetaminophen [Acetaminophen Extra Strength] 500 mg PO TID PRN 12/13/20 Cholecalciferol [Vitamin D3] 50 mcg PO DAILY 12/13/20 Losartan Potassium [Cozaar] 100 mg PO DAILY 12/13/20 Meloxicam [Mobic] 15 mg PO DAILY 12/13/20 hydroCHLOROthiazide [Hydrodiuril] 25 mg PO DAILY 12/13/20 Aspirin Chewable [St Obey Aspirin] 81 mg PO DAILY 03/02/14 Levothyroxine [Synthroid] 75 mcg PO DAILY 03/02/14 Metoprolol Succinate 50 mg PO DAILY 03/02/14 [place]-3/Dha/Epa/Fish Oil [Fish Oil] 1,200 mg PO DAILY 03/02/14 Simvastatin 20 mg PO QPM 03/02/14 diphenhydrAMINE HCl [Benadryl] 12.5 mg PO BID 03/02/14 Acetaminophen [Acetaminophen Extra Strength] 500 mg PO TID PRN 12/13/20 Cholecalciferol [Vitamin D3] 50 mcg PO DAILY 12/13/20 Losartan Potassium [Cozaar] 100 mg PO DAILY 12/13/20 Meloxicam [Mobic] 15 mg PO DAILY 12/13/20 hydroCHLOROthiazide [Hydrodiuril] 25 mg PO DAILY 12/13/20 Allergies/Adverse Reactions: Allergies Allergy/AdvReac Type Severity Reaction Status Date / Time No Known Drug Allergies Allergy Verified 12/13/20 15:53 Anes History & Medical History - Anesthetic History Anesthesia Complications: reports: No previous complications Family history of Anesthesia Complications: Denies Family history of Malignant Hyperthermia: Denies - Medical History Cardiovascular: reports: Hypertension, High cholesterol, Arrhythmia Pulmonary: reports: None Gastrointestinal: reports: None Urinary: reports: None Musculoskeletal: reports: Osteoarthritis Endocrine/Autoimmune: reports: HyPOthyroidism Skin: reports: None Smoking Status: Current every day smoker Psychosocial: reports: No issues indicated History of Cancer?: No - Surgical History General: Colonoscopy Eyes Ears Nose Throat (EENT): Cataracts Gynecologic: Other Exam General: Alert, Oriented x3, Cooperative Dental: Dentures full Upper Mouth Openin Fingerbreadth Neck Mobility: Normal Mallampati classification: II Thyromental Distance: 4-6 cm Respiratory: Lungs clear, No respiratory distress Cardiovascular: Regular rate Neurological: Normal speech Mental/Cognitive Status: Alert/Oriented X3, Normal for patient Cognitive Status: Within normal limits Plan Anesthesia Type: Spinal, Fascia Iliaca Block Regional Block: Per Surgeon's request for Post Op pain control Consent for Procedure(s) Verified and Reviewed: Yes Code Status: Attempt Resuscitation ASA classification: 2-Mild systemic disease Is this case an emergency?: No
[2020-12-21] MEDS ORDERED: MORPHINE 2 MG/ML CARPUJECT IVP PRN (07:36)
[2020-12-21] MEDS ORDERED: HYDROmorphone 0.5 MG/0.5 ML SYRINGE IVP PRN (07:36)
[2020-12-21] MEDS ORDERED: ATROPINE ABBOJECT 1 MG/10 ML SYRINGE IVP PRN (07:36)
[2020-12-21] MEDS ORDERED: fentaNYL 100 MCG/2 ML VIAL IVP PRN (07:36)
[2020-12-21] MEDS ORDERED: NALOXONE 0.4 MG/ML VIAL IVP PRN (07:36)
[2020-12-21] MEDS ORDERED: ePHEDrine 50 MG/ML VIAL IVP PRN (07:36)
[2020-12-21] MEDS ORDERED: ONDANSETRON 4 MG/2 ML VIAL IVP PRN ×2 (07:36→11:17)
[2020-12-21] MEDS ORDERED: METOCLOPRAMIDE 10 MG/2 ML VIAL IVP PRN (07:36)
[2020-12-21] MEDS ORDERED: ceFAZolin 2 GM/50 ML 2 GM/50 ML BAG IV ONE (07:41)
[2020-12-21] MEDS ORDERED: LACTATED RINGERS 1,000 ML IV SCH (08:00)
[2020-12-21] MEDS ORDERED: TRANEXAMIC ACID 1,000 MG/10 ML VIAL ONE (08:04)
[2020-12-21] MEDS ORDERED: ROPIVACAINE 0.5% PF 20 ML AMPULE ONE (10:39)
--- NOTE | 2020-12-21 10:44 | OPERATIVE REPORT ---
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 Procedure Performed: Total hip arthroplasty using Pop & Nephew total hip system: #4 anthology standard offset femoral component, 48 mm reflection 3 acetabular cup, single acetabular screw, 32 mm +4 zirconium femoral head, noncemented Post Op Diagnosis: Same as preoperative diagnosis - Procedure Note Primary Surgeon: Murtaza Bowles MD Secondary Surgeon: Walter ROCHE Anesthesia Provider: Vick Parrish CRNA Anesthesia Technique: Spinal Pathology: Femoral head sent to pathology, from right hip Estimated Blood Loss (mL): 300 Indications: This is a 85-year-old woman with chronic and debilitating pain that makes every step painful for ambulation. She has had progressive symptoms for a couple of years or more. She has tried nonoperative measures without success. She has tried decreased ambulation and sitting in a chair because of the pain. She has painful limited motion to right hip. Routine x-rays show marked abnormalities with flattening and destruction of the femoral head, cystic changes, osteophytes, complete loss of joint space. 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 The head was smaller and deformed. The acetabulum had been eroded down to the inner wall of the pelvis but the wall was still intact Complications: None noted - Other Other Information/Narrative: After satisfactory spinal anesthesia had been achieved, the patient was placed in a lateral decubitus position with the right hip facing superiorly. She was secured in the lateral decubitus position using a pegboard with 2 post securing the torso and 2 posts securing the pelvis. The right hip and right lower extremity were prepped and draped in a sterile manner in the usual fashion. A timeout procedure was performed by the entire operating room team and all were in agreement. A longitudinal incision was made about the lateral right hip beginning at the vastus lateralis ridge of the proximal femur and extending it proximally approximately 3 fingerbreadths above the trochanter. The subcutaneous tissue and fascia yonatan were split in line with the incision. The anterior one third of the gluteus medius was incised at the myotendinous junction. The gluteus medius was retracted medially. The hip capsule was exposed and was split in a T-shaped fashion. Part of the anterior hip capsule was excised. The femoral head was dislocated with flexion, adduction and external rotation. An osteotomy was done to the femoral neck using a osteotomy guide. Retractors were placed behind the femoral neck to protect the soft tissues from the oscillating saw. The proximal femur was retracted. 2 acetabular retractors were placed one anteriorly directly against bone to reduce any soft tissue impingement to femoral nerve. The second retractor was placed more posteriorly directly against bone and preventing any impingement against sciatic nerve. The acetabulum was prepared with a large curette. Medialization of the acetabulum was performed with a small acetabular reamer and then widening was done up to a 53 mm reamer the final reamers were placed in approximately 20 degrees anteversion and 45 degrees of abduction. A trial acetabular component was inserted, 53 mm and this fit well. A permanent 48 mm R3 acetabular 3-hole component was then impacted in 40 degrees of abduction and approximately 20 degrees of anteversion. This had good fixation to push pull and rotation. A single 20 mm superior acetabular screw was inserted. The stability of the acetabular cup was very good. A trial acetabular liner was inserted into the cup. The femoral canal was opened with a box osteotome, starting reamer and then a short broach. Broaching was carried out to a #4. Calcar reaming was performed. Good fit and stability to the #4 stem was achieved. Trial reduction was performed. Hip motion was very good and the hip was stable to dislocation maneuvers. The trial components were removed. A permanent acetabular liner was impacted into the acetabular cup. The #4 Accolade femoral stem was impacted and fully seated. There was good stability to push pull and rotation. A 36 mm +4 head was impacted on the trunnion. The hip was reduced, had good leg length tension and good stability with dislocation maneuvers. 3-minute lavage with dilute Betadine was performed. A 32 mm +4 femoral head had been impacted on the femoral trunnion. The hip abductors were repaired at the myotendinous junction with #1 Vicryl. The fascia yonatan was closed with #1 Vicryl. The subcutaneous tissue was closed with 2-0 Vicryl. The skin was closed with a 3-0 Monocryl subcuticular closure and Dermabond. She tolerated the procedure well. A physician recreational assistant was utilized during the procedure to provide retraction and protection of neurovascular structures as well as to facilitate dislocation and reduction of the hip joint.
[2020-12-21] MEDS ORDERED: SODIUM CHLORIDE FLUSH 0.9% 10 ML SYRINGE IVP PRN (11:17)
--- NOTE | 2020-12-21 12:21 | XRAY Report ---
PROCEDURE: Hip w/Pelvis 1V RT INDICATIONS: Postoperative right total hip arthroplasty TECHNIQUE: AP pelvis with lateral view(s) of the right hip(s). COMPARISON: 04/23/2020. FINDINGS: Bones: Patient is status post right total hip arthroplasty with anatomic alignment of right hip join t. No fractures or dislocations. Pelvic ring appears intact. Moderate left hip joint osteoarthritic changes are seen. No suspicious bony lesions. Soft tissues: Expected postsurgical changes are noted in lateral right hip soft tissue. No suspiciou s soft tissue calcifications. IMPRESSION: Postoperative changes from right total hip arthroplasty with anatomic right hip alignment . Reviewed by: Rubén Sun MD on 12/21/2020 11:20 AM [facility] Approved by: Rubén Sun MD on 12/21/2020 11:20 AM [facility] Station ID: [id number]
--- NOTE | 2020-12-21 12:38 | ANESTHESIA POST OP EVALUATION ---
Anesthesia Post Eval - Post Anesthesia Eval Vitals: Last Vital Signs Temp 36 C L 12/21/20 11:44 Pulse 56 L 12/21/20 12:30 Resp 18 12/21/20 12:30 BP 143/77 H 12/21/20 12:30 Pulse Ox 100 12/21/20 12:30 CV Function Including HR & BP: positive: Stable Pain Control: positive: Satisfactory Nausea & Vomiting: positive: Negative Mental Status: positive: Baseline Respiratory Status: Airway Patent Hydration Status: Satisfactory Anesthesia Complications: positive: None
[2020-12-21] MEDS: ACETAMINOPHEN 500 MG TABLET PO SCH ×3 (13:27→23:59)
[2020-12-21] MEDS: ceFAZolin 2 GM/50 ML 2 GM/50 ML BAG IV SCH ×2 (13:29→21:15)
--- NOTE | 2020-12-21 13:57 | CONSULTATION NOTE ---
Referring Provider Name of Referring Provider:: Dr. Bowles Consult Date: 12/21/20 Chief Complaint - Chief Complaint Chief Complaint: status post of Right total hip arthroplasty History of Present Illness - Admitted From Admitted From:: medical floor after pt had Right total hip arthroplasty - History Obtained From Records Reviewed: [facility] History obtained from: pt Exam Limitations: no - History of Present Illness HPI Comment/Other: This is a 85 years old female with a past medical history significant for remote right breast cancer with lumpectomy, HTN, HLD, hypothyroidism, osteopenia, hx of aortic stenosis with heart murmur who just had Right total hip arthroplasty on today. Medical team was consulted for medical management of status post of operation Right total hip arthroplasty. Patient report she passed chemical stress test then she had the surgery. pt denies fever, chill, shortness of breath, chest pain. She feels comfortable, she has no acute distress at this point. 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: reports: Other HEENT: reports: Cataracts - POLST Patient has POLST: No Meds/Allgy - Home Medications Home Medications: Ambulatory Orders Medication Instructions Recorded Confirmed Aspirin Chewable [St Obey 81 mg PO DAILY 03/02/14 12/21/20 Aspirin] Levothyroxine [Synthroid] 75 mcg PO DAILY 03/02/14 12/21/20 Metoprolol Succinate 50 mg PO DAILY 03/02/14 12/21/20 [place]-3/Dha/Epa/Fish Oil [Fish Oil] 1,200 mg PO DAILY 03/02/14 12/21/20 Simvastatin 20 mg PO QPM 03/02/14 12/21/20 diphenhydrAMINE HCl [Benadryl] 12.5 mg PO BID 03/02/14 12/21/20 Acetaminophen [Acetaminophen Extra 500 mg PO TID PRN 12/13/20 12/21/20 Strength] Cholecalciferol [Vitamin D3] 50 mcg PO DAILY 12/13/20 12/13/20 Losartan Potassium [Cozaar] 100 mg PO DAILY 12/13/20 12/13/20 Meloxicam [Mobic] 15 mg PO DAILY 12/13/20 12/21/20 hydroCHLOROthiazide [Hydrodiuril] 25 mg PO DAILY 12/13/20 12/13/20 - Allergies Allergies/Adverse Reactions: Allergies Allergy/AdvReac Type Severity Reaction Status Date / Time No Known Drug Allergies Allergy Verified 12/13/20 15:53 Review of Systems - Constitutional Constitutional: denies: Fever, Chills, Poor appetite, Diaphoresis - Eyes Eyes: denies: Pain, Blurred vision, Field loss, Vision loss - Ears, Nose & Throat Ears, Nose & Throat: denies: Ear pain, Tinnitus, Nosebleeds, Bleeding gums - Cardiovascular Cariovascular: denies: Irregular heart rate, Palpitations, Chest pain, Edema, Lightheadedness, Syncope, Exertional dyspnea, Decr. exercise tolerance - Respiratory Respiratory: denies: Cough, Sputum production, Wheezing, Hemoptysis, Orthopnea, SOB at rest, SOB with exertion - Gastrointestinal Gastrointestinal: denies: Abdominal pain, Constipation, Rectal bleeding, Black stools, Bloody stools, Nausea, Vomiting - Genitourinary Genitourinary: denies: Dysuria, Urgency, Incontinence - Musculoskeletal Musculoskeletal: denies: Muscle pain, Muscle aches, Muscle weakness - Integumentary Integumentary: denies: Rash, Lesions - Neurological Neurological: denies: General weakness, Focal weakness, Headache, Dizziness, Numbness, Pre-existing deficit, Abnormal gait, Seizures, Incoordination, Slurred speech - Psychiatric Psychiatric: denies: Depression, Suicidal, Delusions - Endocrine Endocrine: denies: Polyuria, Polyphagia - Hematologic/Lymphatic Hematologic/Lymphatic: denies: Anemia, Petechiae Exam - Vital Signs Vital Signs: Vital Signs x48h Temp Pulse Pulse Resp BP BP Pulse Ox 12/21/20 13:00 60 18 145/79 H 97 12/21/20 12:30 56 L 18 143/77 H 100 12/21/20 12:00 63 18 155/75 H 99 12/21/20 11:44 36 C L 58 L 16 143/67 H 100 12/21/20 11:40 36 C L 58 L 16 147/68 H 100 12/21/20 11:36 36 C L 59 L 16 144/70 H 100 12/21/20 11:30 36 C L 61 16 127/71 100 12/21/20 11:26 36 C L 59 L 16 152/71 H 100 12/21/20 11:19 36 C L 16 129/59 L 100 12/21/20 06:39 36.4 C L 83 18 189/74 H 98 - Physical Exam General Appearance: positive: No acute distress, Alert. negative: Lethargic Eyes Bilateral: positive: Normal inspection, PERRL, No lid inflammation ENT: positive: ENT inspection nml, No signs of dehydration. negative: Purulent nasal drainage Neck: positive: Nml inspection, Trachea midline. negative: Thyromegaly, Tracheal deviation Respiratory: positive: Chest non-tender, No respiratory distress, Breath sounds nml. negative: Wheezes, Rales, Rhonchi Cardiovascular: positive: Regular rate & rhythm, Systolic murmur. negative: No murmur, Tachycardia, Bradycardia Peripheral Pulses: positive: 2+ Abdomen: positive: Non-tender, Nml bowel sounds, No distention. negative: Tenderness, Guarding, Rebound Skin: positive: Color nml, Warm, Dry. negative: Cyanosis, Diaphoresis, Pallor Extremities: positive: Non-tender, Nml appearance. negative: Calf tenderness Neurologic/Psychiatric: positive: Oriented x3, Sensation nml, Mood/affect nml. negative: Weakness, Sensory loss, Facial droop, Slurred/abnml speech, Depressed mood/affect Conclusion/Plan - Plan Plan: 1, HTN,Patient take HCTZ, Losartan, metoprolol in the home, Now patient's blood pressure is good control, we will resume patient blood pressure medicine as confirmed, continue vital signal monitor 2, hypothyroidism, resume home sythroid and check TSH 3, hx of aortic stenosis and heart murmur. Patient report she already passed the stress test, patient already finish the surgery, patient is hemodynamic stable now. Patient denies chest pain, dizziness, shortness of breathing. order tele monitor pt, will resume pt's home BP meds, vital sign closely monitor pt. - Lab Results Lab results reviewed: Yes
[2020-12-21 14:00] LABS: BASOPHILS % (AUTO) 0.3 %; EOSINOPHILS # (AUTO) 0.1 10^3/uL (0.0-0.7); EOSINOPHILS % (AUTO) 1.3 %; HGB - HEMOGLOBIN 9.4 g/dL (12.0-16.0); LYMPHOCYTES # (AUTO) 0.8 10^3/uL (1.5-3.5); LYMPHOCYTES % (AUTO) 11.7 %; MEAN CORPUSCULAR HGB CONC 31.5 g/dL (32.0-36.0); MEAN PLATELET VOLUME 8.6 fL (7.9-10.8); MONOCYTES # (AUTO) 0.2 10^3/uL (0.0-1.0); MONOCYTES % (AUTO) 2.5 %; NEUTROPHILS # (AUTO) 5.4 10^3/uL (1.5-6.6); NEUTROPHILS % (AUTO) 83.7 %; PLT - PLATELET COUNT 146 10^3/uL (130-450); RED BLOOD COUNT 3.24 10^6/uL (4.20-5.40); RED CELL DISTRIBUTION WIDTH 13.6 % (12.0-15.0); WHITE BLOOD COUNT 6.4 x10^3/uL (4.8-10.8)
[2020-12-21 14:27] LABS: ALBUMIN 3.6 g/dL (3.2-5.5); ALBUMIN/GLOBULIN RATIO 1.3 (1.0-2.2); BILIRUBIN,TOTAL 0.4 mg/dL (0.2-1.0); CALCIUM 8.6 mg/dL (8.5-10.3); CREATININE 1.3 mg/dL (0.4-1.0); TOTAL PROTEIN 6.4 g/dL (6.7-8.2)
[2020-12-21] MEDS: SODIUM CHLORIDE FLUSH 0.9% 10 ML SYRINGE IVP SCH (17:28)
[2020-12-21] MEDS: oxyCODONE 5 MG TABLET PO PRN (18:49)
[2020-12-21 19:35] LABS: ABSOLUTE RETICS # AUTO 0.07 10^6/uL (0.020-0.110); RED BLOOD COUNT 3.16 10^6/uL (4.20-5.40)
[2020-12-21 19:38] LABS: HGB - HEMOGLOBIN 9.2 g/dL (12.0-16.0)
[2020-12-21 20:32] LABS: % IRON SATURATION 10 % (20-50); IRON 33 ug/dL (28-170); TOTAL IRON BINDING CAPACITY 319 ug/dL (250-450); TRANSFERRIN 228 mg/dL (192-382)
[2020-12-21 20:43] LABS: FERRITIN 61.4 ng/mL (11.0-306.8)
[2020-12-21] MEDS: ASPIRIN EC 81 MG TABLET PO SCH (21:14)
[2020-12-21] MEDS: CELECOXIB 100 MG CAPSULE PO SCH (21:14)
[2020-12-21] MEDS: ethyl alcohoL 62% SWAB AMPULE NAS SCH (21:15)
[2020-12-22] MEDS: oxyCODONE 5 MG TABLET PO PRN ×2 (01:28→08:43)
[2020-12-22 05:20] LABS: BASOPHILS % (AUTO) 0.1 %; HGB - HEMOGLOBIN 7.6 g/dL (12.0-16.0); LYMPHOCYTES # (AUTO) 0.9 10^3/uL (1.5-3.5); LYMPHOCYTES % (AUTO) 9.4 %; MEAN CORPUSCULAR HEMOGLOBIN 28.6 pg (27.0-31.0); MEAN CORPUSCULAR HGB CONC 31.1 g/dL (32.0-36.0); MEAN CORPUSCULAR VOLUME 91.7 fL (81.0-99.0); MEAN PLATELET VOLUME 9.5 fL (7.9-10.8); MONOCYTES # (AUTO) 0.7 10^3/uL (0.0-1.0); MONOCYTES % (AUTO) 7.4 %; NEUTROPHILS # (AUTO) 7.9 10^3/uL (1.5-6.6); NEUTROPHILS % (AUTO) 82.6 %; PLT - PLATELET COUNT 158 10^3/uL (130-450); RED BLOOD COUNT 2.66 10^6/uL (4.20-5.40); RED CELL DISTRIBUTION WIDTH 13.6 % (12.0-15.0); WHITE BLOOD COUNT 9.5 x10^3/uL (4.8-10.8)
[2020-12-22 05:38] LABS: CALCIUM 8.2 mg/dL (8.5-10.3); CREATININE 1.5 mg/dL (0.4-1.0)
[2020-12-22] MEDS: ACETAMINOPHEN 500 MG TABLET PO SCH ×3 (06:07→17:27)
--- NOTE | 2020-12-22 07:57 | PROVIDER PROGRESS NOTE ---
Subjective - General Procedure Date: 12/21/20 Post Op Days: 1 - Review of Systems Wound/Incisions: positive: Drainage Musculoskeletal: negative: Joint swelling Objective - Patient Data Vital Signs: Vital Signs x48h Temp Pulse Resp BP Pulse Ox 12/22/20 05:00 36.8 C 95 16 114/50 L 99 Weight: Weight 12/20/20 12/21/20 12/22/20 23:59 23:59 23:59 Weight (kg) 70 kg Intake & Output: Intake and Output Totals x24h 12/20/20 12/21/20 12/22/20 23:59 23:59 23:59 Intake Total 1450 200 Output Total 1350 200 Balance 100 0 - Lab Results Lab Results: 12/22/20 04:51 12/22/20 04:51 Other Lab Results: Lab Results x24hrs 12/22/20 12/22/20 12/21/20 Range/Units 04:51 04:51 19:21 WBC 9.5 (4.8-10.8) x10^3/uL RBC 2.66 L (4.20-5.40) 10^6/uL Hgb 7.6 L (12.0-16.0) g/dL Hct 24.4 L (37.0-47.0) % MCV 91.7 (81.0-99.0) fL MCH 28.6 (27.0-31.0) pg MCHC 31.1 L (32.0-36.0) g/dL RDW 13.6 (12.0-15.0) % Plt Count 158 (130-450) 10^3/uL MPV 9.5 (7.9-10.8) fL Reticulocyte % (Auto) (0.5-2.3) % Neut # (Auto) 7.9 H (1.5-6.6) 10^3/uL Lymph # (Auto) 0.9 L (1.5-3.5) 10^3/uL Andrew # (Auto) 0.7 (0.0-1.0) 10^3/uL Eos # (Auto) 0.0 (0.0-0.7) 10^3/uL Baso # (Auto) 0.0 (0.0-0.1) 10^3/uL Absolute Nucleated RBC 0.00 x10^3/uL Nucleated RBC % 0.0 /100WBC Absolute Retic (0.020-0.110) 10^6/uL Sodium 132 L (135-145) mmol/L Potassium 4.4 (3.5-5.0) mmol/L Chloride 101 (101-111) mmol/L Carbon Dioxide 20 L (21-32) mmol/L Anion Gap 11.0 (6-13) BUN 34 H (6-20) mg/dL Creatinine 1.5 H (0.4-1.0) mg/dL Estimated GFR (MDRD) 33 L (>89) Glucose 158 H (70-100) mg/dL Calcium 8.2 L (8.5-10.3) mg/dL Iron (28-170) ug/dL TIBC (250-450) ug/dL % Saturation (20-50) % Transferrin (192-382) mg/dL Ferritin (11.0-306.8) ng/mL Total Bilirubin (0.2-1.0) mg/dL AST (10-42) IU/L ALT (10-60) IU/L Alkaline Phosphatase (42-121) IU/L Lactate Dehydrogenase 187 (91-225) IU/L Total Protein (6.7-8.2) g/dL Albumin (3.2-5.5) g/dL Globulin (2.1-4.2) g/dL Albumin/Globulin Ratio (1.0-2.2) Vitamin B12 (180-914) pg/mL TSH (0.34-5.60) uIU/mL 12/21/20 12/21/20 12/21/20 Range/Units 19:21 19:21 19:21 WBC (4.8-10.8) x10^3/uL RBC 3.16 L (4.20-5.40) 10^6/uL Hgb (12.0-16.0) g/dL Hct (37.0-47.0) % MCV (81.0-99.0) fL MCH (27.0-31.0) pg MCHC (32.0-36.0) g/dL RDW (12.0-15.0) % Plt Count (130-450) 10^3/uL MPV (7.9-10.8) fL Reticulocyte % (Auto) 2.21 (0.5-2.3) % Neut # (Auto) (1.5-6.6) 10^3/uL Lymph # (Auto) (1.5-3.5) 10^3/uL Andrew # (Auto) (0.0-1.0) 10^3/uL Eos # (Auto) (0.0-0.7) 10^3/uL Baso # (Auto) (0.0-0.1) 10^3/uL Absolute Nucleated RBC x10^3/uL Nucleated RBC % /100WBC Absolute Retic 0.070 (0.020-0.110) 10^6/uL Sodium (135-145) mmol/L Potassium (3.5-5.0) mmol/L Chloride (101-111) mmol/L Carbon Dioxide (21-32) mmol/L Anion Gap (6-13) BUN (6-20) mg/dL Creatinine (0.4-1.0) mg/dL Estimated GFR (MDRD) (>89) Glucose (70-100) mg/dL Calcium (8.5-10.3) mg/dL Iron 33 (28-170) ug/dL TIBC 319 (250-450) ug/dL % Saturation 10 L (20-50) % Transferrin 228 (192-382) mg/dL Ferritin 61.4 (11.0-306.8) ng/mL Total Bilirubin (0.2-1.0) mg/dL AST (10-42) IU/L ALT (10-60) IU/L Alkaline Phosphatase (42-121) IU/L Lactate Dehydrogenase (91-225) IU/L Total Protein (6.7-8.2) g/dL Albumin (3.2-5.5) g/dL Globulin (2.1-4.2) g/dL Albumin/Globulin Ratio (1.0-2.2) Vitamin B12 220 (180-914) pg/mL TSH (0.34-5.60) uIU/mL 12/21/20 12/21/20 12/21/20 Range/Units 19:21 13:55 13:55 WBC (4.8-10.8) x10^3/uL RBC (4.20-5.40) 10^6/uL Hgb 9.2 L (12.0-16.0) g/dL Hct 28.7 L (37.0-47.0) % MCV (81.0-99.0) fL MCH (27.0-31.0) pg MCHC (32.0-36.0) g/dL RDW (12.0-15.0) % Plt Count (130-450) 10^3/uL MPV (7.9-10.8) fL Reticulocyte % (Auto) (0.5-2.3) % Neut # (Auto) (1.5-6.6) 10^3/uL Lymph # (Auto) (1.5-3.5) 10^3/uL Andrew # (Auto) (0.0-1.0) 10^3/uL Eos # (Auto) (0.0-0.7) 10^3/uL Baso # (Auto) (0.0-0.1) 10^3/uL Absolute Nucleated RBC x10^3/uL Nucleated RBC % /100WBC Absolute Retic (0.020-0.110) 10^6/uL Sodium 137 (135-145) mmol/L Potassium 4.1 (3.5-5.0) mmol/L Chloride 102 (101-111) mmol/L Carbon Dioxide 24 (21-32) mmol/L Anion Gap 11.0 (6-13) BUN 25 H (6-20) mg/dL Creatinine 1.3 H (0.4-1.0) mg/dL Estimated GFR (MDRD) 39 L (>89) Glucose 164 H (70-100) mg/dL Calcium 8.6 (8.5-10.3) mg/dL Iron (28-170) ug/dL TIBC (250-450) ug/dL % Saturation (20-50) % Transferrin (192-382) mg/dL Ferritin (11.0-306.8) ng/mL Total Bilirubin 0.4 (0.2-1.0) mg/dL AST 27 (10-42) IU/L ALT 16 (10-60) IU/L Alkaline Phosphatase 78 (42-121) IU/L Lactate Dehydrogenase (91-225) IU/L Total Protein 6.4 L (6.7-8.2) g/dL Albumin 3.6 (3.2-5.5) g/dL Globulin 2.8 (2.1-4.2) g/dL Albumin/Globulin Ratio 1.3 (1.0-2.2) Vitamin B12 (180-914) pg/mL TSH 2.59 (0.34-5.60) uIU/mL 12/21/20 Range/Units 13:55 WBC 6.4 (4.8-10.8) x10^3/uL RBC 3.24 L (4.20-5.40) 10^6/uL Hgb 9.4 L (12.0-16.0) g/dL Hct 29.8 L (37.0-47.0) % MCV 92.0 (81.0-99.0) fL MCH 29.0 (27.0-31.0) pg MCHC 31.5 L (32.0-36.0) g/dL RDW 13.6 (12.0-15.0) % Plt Count 146 (130-450) 10^3/uL MPV 8.6 (7.9-10.8) fL Reticulocyte % (Auto) (0.5-2.3) % Neut # (Auto) 5.4 (1.5-6.6) 10^3/uL Lymph # (Auto) 0.8 L (1.5-3.5) 10^3/uL Andrew # (Auto) 0.2 (0.0-1.0) 10^3/uL Eos # (Auto) 0.1 (0.0-0.7) 10^3/uL Baso # (Auto) 0.0 (0.0-0.1) 10^3/uL Absolute Nucleated RBC 0.00 x10^3/uL Nucleated RBC % 0.0 /100WBC Absolute Retic (0.020-0.110) 10^6/uL Sodium (135-145) mmol/L Potassium (3.5-5.0) mmol/L Chloride (101-111) mmol/L Carbon Dioxide (21-32) mmol/L Anion Gap (6-13) BUN (6-20) mg/dL Creatinine (0.4-1.0) mg/dL Estimated GFR (MDRD) (>89) Glucose (70-100) mg/dL Calcium (8.5-10.3) mg/dL Iron (28-170) ug/dL TIBC (250-450) ug/dL % Saturation (20-50) % Transferrin (192-382) mg/dL Ferritin (11.0-306.8) ng/mL Total Bilirubin (0.2-1.0) mg/dL AST (10-42) IU/L ALT (10-60) IU/L Alkaline Phosphatase (42-121) IU/L Lactate Dehydrogenase (91-225) IU/L Total Protein (6.7-8.2) g/dL Albumin (3.2-5.5) g/dL Globulin (2.1-4.2) g/dL Albumin/Globulin Ratio (1.0-2.2) Vitamin B12 (180-914) pg/mL TSH (0.34-5.60) uIU/mL - Imaging Results Radiology Imaging: positive: EMP read indepedently - Current Medications Current Medications: Current Medications Generic Name Dose Route Start Last Admin Trade Name Freq PRN Reason Stop Dose Admin Acetaminophen 1,000 mg 12/21/20 12:00 12/22/20 06:07 Acetaminophen 500 Mg Tablet PO 1,000 mg Q6HR ASYA Administration Alcohol 1 amp 12/21/20 21:00 12/21/20 21:15 Ethyl Alcohol 62% Swab Ampule JABIER 1 amp BID ASYA Administration Aspirin 81 mg 12/21/20 21:00 12/21/20 21:14 Aspirin Ec 81 Mg Tablet PO 81 mg BID ASYA Administration Celecoxib 200 mg 12/21/20 21:00 12/21/20 21:14 Celecoxib 100 Mg Capsule PO 200 mg BID ASYA Administration Oxycodone HCl 5 mg 12/21/20 11:17 12/22/20 01:28 Oxycodone 5 Mg Tablet PO 5 mg Q6HR PRN Administration PAIN Sodium Chloride 10 ml 12/21/20 17:00 12/22/20 00:00 Sodium Chloride Flush 0.9% 10 Ml Syringe IVP 10 ml 0100,0900,1700 ASYA Administration - Physical Exam Wound/Incisions: positive: Drainage General Appearance: positive: No acute distress, Alert Skin: positive: Color nml, Warm Extremities: positive: Nml appearance Neurologic/Psychiatric: positive: Oriented x3, Motor nml, Sensation nml (Small amount of drainage distal bandage) ABX Reporting Has patient been on IV antibiotics over the past 48 hours?: No Impression/Plan - Problem List Problem List: Patient is an 85-year-old female postop day 1 right total hip arthroplasty. Patient is alert and in good spirits this morning. Pain is well controlled. Patient has small amount of draining on bandage, well controlled. Patient has good motor and sensation in operative leg.Patient plan 1) PT OT 2) discharge today
[2020-12-22] MEDS: CELECOXIB 100 MG CAPSULE PO SCH (08:42)
[2020-12-22] MEDS: ASPIRIN EC 81 MG TABLET PO SCH ×2 (08:42→20:45)
[2020-12-22] MEDS: ethyl alcohoL 62% SWAB AMPULE NAS SCH ×2 (08:43→20:45)
[2020-12-22] MEDS: polyethylene glycoL 3350 17 GM PACKET PO SCH (08:43)
[2020-12-22] MEDS: METOPROLOL SUCCINATE 50 MG TABLET PO SCH (08:44)
[2020-12-22] MEDS: SODIUM CHLORIDE 0.9% 1,000 ML IV SCH ×2 (08:49→17:26)
[2020-12-22] MEDS: SODIUM CHLORIDE FLUSH 0.9% 10 ML SYRINGE IVP SCH ×3 (08:50→17:27)
[2020-12-22] MEDS ORDERED: LEVOTHYROXINE 75 MCG TABLET PO SCH (09:00)
[2020-12-22] MEDS ORDERED: SODIUM CHLORIDE 0.9% 1,000 ML IV SCH (09:00)
[2020-12-22 12:27] LABS: HGB - HEMOGLOBIN 7.2 g/dL (12.0-16.0)
[2020-12-22 14:37] LABS: CALCIUM 8.4 mg/dL (8.5-10.3)
--- NOTE | 2020-12-22 15:41 | PROVIDER PROGRESS NOTE ---
Subjective - Prog Note Date Prog Note Date: 12/22/20 - Subjective Pt reports feeling: Worse Subjective: In the afternoon, patient feel nauseated. I updated medical information to patient's daughter, Answer her questions. She report oxycodone pain medication make her mother nauseated in the past. I called patient's surgeon Dr. Ferguson, reported Patient's creatinine increases to 2.0 from 1.3, pt has significant orthostatic hypotension, PT could not cont inue finish the work, because pt was dizzy. Also I reported pt's HGB is 7.2 now. She has a hemoglobin 9.[address] Bowles state no blood transfusion to pt at this time, continue hydration for pt. Dr. Bowles agree pt is not d/c home today. Current Medications - Current Medications Current Medications: Active Medications Acetaminophen (Acetaminophen 500 Mg Tablet) 1,000 mg PO Q6HR [facility] Last Admin: 12/22/20 13:59 Dose: 1,000 mg Documented by: Alcohol (Ethyl Alcohol 62% Swab Ampule) 1 amp JABIER BID [facility] Last Admin: 12/22/20 08:43 Dose: 1 amp Documented by: Aspirin (Aspirin Ec 81 Mg Tablet) 81 mg PO BID [facility] Last Admin: 12/22/20 08:42 Dose: 81 mg Documented by: Celecoxib (Celecoxib 100 Mg Capsule) 200 mg PO BID [facility] Last Admin: 12/22/20 08:42 Dose: 200 mg Documented by: Sodium Chloride (Normal Saline 0.9%) 1,000 mls @ 125 mls/hr IV .Q8H [facility] Stop: 12/23/20 00:04 Last Admin: 12/22/20 08:49 Dose: 125 mls/hr Documented by: Levothyroxine Sodium (Levothyroxine 75 Mcg Tablet) 75 mcg PO DAILY [facility] Last Admin: 12/22/20 08:42 Dose: 75 mcg Documented by: Metoclopramide HCl (Metoclopramide 10 Mg/2 Ml Vial) 10 mg IVP Q6HR PRN PRN Reason: N/V not relieved by Zofran Metoprolol Succinate (Metoprolol Succinate 50 Mg Tablet) 50 mg PO DAILY [facility] Last Admin: 12/22/20 08:44 Dose: Not Given Documented by: Ondansetron HCl (Ondansetron 4 Mg/2 Ml Vial) 4 mg IVP Q6HR PRN PRN Reason: Nausea / Vomiting Last Admin: 12/22/20 13:58 Dose: 4 mg Documented by: Polyethylene Glycol (Polyethylene Glycol 3350 17 Gm Packet) 17 gm PO DAILY [facility] Last Admin: 12/22/20 08:43 Dose: 17 gm Documented by: Sodium Chloride (Sodium Chloride Flush 0.9% 10 Ml Syringe) 10 ml IVP 0100,0900,1700 [facility] Last Admin: 12/22/20 08:50 Dose: 10 ml Documented by: Sodium Chloride (Sodium Chloride Flush 0.9% 10 Ml Syringe) 10 ml IVP PRN PRN PRN Reason: NEEDED PER PROVIDER ORDERS Last Admin: 12/22/20 13:58 Dose: 10 ml Documented by: Tramadol HCl (Tramadol 50 Mg Tablet) 50 mg PO Q4HR PRN PRN Reason: PAIN Aspirin Chewable [[place] Aspirin] 81 mg PO DAILY 03/02/14 Levothyroxine [Synthroid] 75 mcg PO DAILY 03/02/14 Metoprolol Succinate 50 mg PO DAILY 03/02/14 Trent-3/Dha/Epa/Fish Oil [Fish Oil] 1,200 mg PO DAILY 03/02/14 Simvastatin 20 mg PO QPM 03/02/14 diphenhydrAMINE HCl [Benadryl] 12.5 mg PO BID 03/02/14 Acetaminophen [Acetaminophen Extra Strength] 500 mg PO TID PRN 12/13/20 Cholecalciferol [Vitamin D3] 50 mcg PO DAILY 12/13/20 Losartan Potassium [Cozaar] 100 mg PO DAILY 12/13/20 Meloxicam [Mobic] 15 mg PO DAILY 12/13/20 hydroCHLOROthiazide [Hydrodiuril] 25 mg PO DAILY 12/13/20 Objective - Vital Signs/Intake & Output Vital Signs: Vital Signs x48h Pulse Pulse Pulse BP BP BP 12/22/20 10:35 94 66 104 H 78/39 L 111/51 L 113/57 L Intake & Output: Intake & Output 12/19/20 12/20/20 12/21/20 12/22/20 23:59 23:59 23:59 23:59 Intake Total 1450 200 Output Total 1350 600 Balance 100 -400 - Objective General Appearance: positive: Alert, Mild distress. negative: Lethargic Eyes Bilateral: positive: Normal inspection, PERRL, No lid inflammation ENT: positive: ENT inspection nml, No signs of dehydration. negative: Purulent nasal drainage Neck: positive: Nml inspection, Trachea midline. negative: Thyromegaly, Tracheal deviation Respiratory: positive: Chest non-tender, No respiratory distress. negative: Wheezes, Rales, Rhonchi Cardiovascular: positive: Regular rate & rhythm, Systolic murmur. negative: No murmur, Tachycardia, Bradycardia Peripheral Pulses: 2+ Radial (R), 2+ Radial (L) Abdomen: positive: Non-tender, Nml bowel sounds, No distention. negative: Tenderness, Guarding, Rebound Back: positive: Nml inspection Skin: positive: Color nml, Warm, Dry, Other (right hip dressing has small area wet.). negative: Cyanosis, Diaphoresis, Pallor Extremities: positive: Nml appearance. negative: Calf tenderness Neurologic/Psychiatric: positive: Oriented x3, Sensation nml, Mood/affect nml. negative: Weakness, Sensory loss, Facial droop, Slurred/abnml speech - Lab Results Fish Bones: 12/22/20 12:20 12/22/20 14:00 Other Labs: Lab Results x24hrs 12/22/20 12/22/20 12/22/20 Range/Units 15:00 14:00 12:20 WBC (4.8-10.8) x10^3/uL RBC (4.20-5.40) 10^6/uL Hgb 7.2 L (12.0-16.0) g/dL Hct 22.7 L (37.0-47.0) % MCV (81.0-99.0) fL MCH (27.0-31.0) pg MCHC (32.0-36.0) g/dL RDW (12.0-15.0) % Plt Count (130-450) 10^3/uL MPV (7.9-10.8) fL Reticulocyte % (Auto) (0.5-2.3) % Neut # (Auto) (1.5-6.6) 10^3/uL Lymph # (Auto) (1.5-3.5) 10^3/uL Preble # (Auto) (0.0-1.0) 10^3/uL Eos # (Auto) (0.0-0.7) 10^3/uL Baso # (Auto) (0.0-0.1) 10^3/uL Absolute Nucleated RBC x10^3/uL Nucleated RBC % /100WBC Absolute Retic (0.020-0.110) 10^6/uL Sodium 136 (135-145) mmol/L Potassium 4.5 (3.5-5.0) mmol/L Chloride 100 L (101-111) mmol/L Carbon Dioxide 21 (21-32) mmol/L Anion Gap 15.0 H (6-13) BUN 38 H (6-20) mg/dL Creatinine 2.0 H (0.4-1.0) mg/dL Estimated GFR (MDRD) 24 L (>89) Glucose 168 H (70-100) mg/dL Calcium 8.4 L (8.5-10.3) mg/dL Iron (28-170) ug/dL TIBC (250-450) ug/dL % Saturation (20-50) % Transferrin (192-382) mg/dL Ferritin (11.0-306.8) ng/mL Lactate Dehydrogenase (91-225) IU/L Troponin I High Sens 26.3 H* (2.3-14.8) ng/L Vitamin B12 (180-914) pg/mL 12/22/20 12/22/20 12/21/20 Range/Units 04:51 04:51 19:21 WBC 9.5 (4.8-10.8) x10^3/uL RBC 2.66 L (4.20-5.40) 10^6/uL Hgb 7.6 L (12.0-16.0) g/dL Hct 24.4 L (37.0-47.0) % MCV 91.7 (81.0-99.0) fL MCH 28.6 (27.0-31.0) pg MCHC 31.1 L (32.0-36.0) g/dL RDW 13.6 (12.0-15.0) % Plt Count 158 (130-450) 10^3/uL MPV 9.5 (7.9-10.8) fL Reticulocyte % (Auto) (0.5-2.3) % Neut # (Auto) 7.9 H (1.5-6.6) 10^3/uL Lymph # (Auto) 0.9 L (1.5-3.5) 10^3/uL Preble # (Auto) 0.7 (0.0-1.0) 10^3/uL Eos # (Auto) 0.0 (0.0-0.7) 10^3/uL Baso # (Auto) 0.0 (0.0-0.1) 10^3/uL Absolute Nucleated RBC 0.00 x10^3/uL Nucleated RBC % 0.0 /100WBC Absolute Retic (0.020-0.110) 10^6/uL Sodium 132 L (135-145) mmol/L Potassium 4.4 (3.5-5.0) mmol/L Chloride 101 (101-111) mmol/L Carbon Dioxide 20 L (21-32) mmol/L Anion Gap 11.0 (6-13) BUN 34 H (6-20) mg/dL Creatinine 1.5 H (0.4-1.0) mg/dL Estimated GFR (MDRD) 33 L (>89) Glucose 158 H (70-100) mg/dL Calcium 8.2 L (8.5-10.3) mg/dL Iron (28-170) ug/dL TIBC (250-450) ug/dL % Saturation (20-50) % Transferrin (192-382) mg/dL Ferritin (11.0-306.8) ng/mL Lactate Dehydrogenase 187 (91-225) IU/L Troponin I High Sens (2.3-14.8) ng/L Vitamin B12 (180-914) pg/mL 12/21/20 12/21/20 12/21/20 Range/Units 19:21 19:21 19:21 WBC (4.8-10.8) x10^3/uL RBC 3.16 L (4.20-5.40) 10^6/uL Hgb (12.0-16.0) g/dL Hct (37.0-47.0) % MCV (81.0-99.0) fL MCH (27.0-31.0) pg MCHC (32.0-36.0) g/dL RDW (12.0-15.0) % Plt Count (130-450) 10^3/uL MPV (7.9-10.8) fL Reticulocyte % (Auto) 2.21 (0.5-2.3) % Neut # (Auto) (1.5-6.6) 10^3/uL Lymph # (Auto) (1.5-3.5) 10^3/uL Preble # (Auto) (0.0-1.0) 10^3/uL Eos # (Auto) (0.0-0.7) 10^3/uL Baso # (Auto) (0.0-0.1) 10^3/uL Absolute Nucleated RBC x10^3/uL Nucleated RBC % /100WBC Absolute Retic 0.070 (0.020-0.110) 10^6/uL Sodium (135-145) mmol/L Potassium (3.5-5.0) mmol/L Chloride (101-111) mmol/L Carbon Dioxide (21-32) mmol/L Anion Gap (6-13) BUN (6-20) mg/dL Creatinine (0.4-1.0) mg/dL Estimated GFR (MDRD) (>89) Glucose (70-100) mg/dL Calcium (8.5-10.3) mg/dL Iron 33 (28-170) ug/dL TIBC 319 (250-450) ug/dL % Saturation 10 L (20-50) % Transferrin 228 (192-382) mg/dL Ferritin 61.4 (11.0-306.8) ng/mL Lactate Dehydrogenase (91-225) IU/L Troponin I High Sens (2.3-14.8) ng/L Vitamin B12 220 (180-914) pg/mL 12/21/20 Range/Units 19:21 WBC (4.8-10.8) x10^3/uL RBC (4.20-5.40) 10^6/uL Hgb 9.2 L (12.0-16.0) g/dL Hct 28.7 L (37.0-47.0) % MCV (81.0-99.0) fL MCH (27.0-31.0) pg MCHC (32.0-36.0) g/dL RDW (12.0-15.0) % Plt Count (130-450) 10^3/uL MPV (7.9-10.8) fL Reticulocyte % (Auto) (0.5-2.3) % Neut # (Auto) (1.5-6.6) 10^3/uL Lymph # (Auto) (1.5-3.5) 10^3/uL Preble # (Auto) (0.0-1.0) 10^3/uL Eos # (Auto) (0.0-0.7) 10^3/uL Baso # (Auto) (0.0-0.1) 10^3/uL Absolute Nucleated RBC x10^3/uL Nucleated RBC % /100WBC Absolute Retic (0.020-0.110) 10^6/uL Sodium (135-145) mmol/L Potassium (3.5-5.0) mmol/L Chloride (101-111) mmol/L Carbon Dioxide (21-32) mmol/L Anion Gap (6-13) BUN (6-20) mg/dL Creatinine (0.4-1.0) mg/dL Estimated GFR (MDRD) (>89) Glucose (70-100) mg/dL Calcium (8.5-10.3) mg/dL Iron (28-170) ug/dL TIBC (250-450) ug/dL % Saturation (20-50) % Transferrin (192-382) mg/dL Ferritin (11.0-306.8) ng/mL Lactate Dehydrogenase (91-225) IU/L Troponin I High Sens (2.3-14.8) ng/L Vitamin B12 (180-914) pg/mL ABX Reporting Has patient been on IV antibiotics over the past 48 hours?: No Assessment/Plan - Problem List (1) LISA (acute kidney injury) Impression: Patient's creatinine is at 2.0 from admission 1.3. pt had documented 600 cc ur ine as far. Continue hydration intravenous, Continue manager laboratory, It is likely prerenal azotemia. (2) Orthostatic dizziness Impression: Patient had a significant orthostatic hypotension. PT could not finish the job, Patient denies chest pain, palpitation, it is likely from pt's dehydration. Continue intravenous IV fluids, Continue monitor orthostatic hypotension, Educated patient for fall prevention. (3) Anemia Impression: Patient has a hemoglobin 7.2 now, patient hemoglobin was 9.4 in the admission. anemia study is unremarkable, Likely acute blood loss from surgery. surgeon would like no blood transfusion now, will H&H continue monitor pt. (4) Aortic stenosis Impression: pt has Mild to moderate aortic aortic stenosis in recently echo, it seems pt Is hemodynamic stable now. We will continue monitor patient closely, Continue telemetry, Vital signs monitor (5) Hypothyroidism Impression: TSH is normal, continue home synthroid
[2020-12-22 21:17] LABS: HGB - HEMOGLOBIN 6.9 g/dL (12.0-16.0)
[2020-12-23] MEDS: ACETAMINOPHEN 500 MG TABLET PO SCH ×3 (00:32→12:50)
[2020-12-23] MEDS: SODIUM CHLORIDE FLUSH 0.9% 10 ML SYRINGE IVP SCH ×4 (00:33→23:38)
[2020-12-23] MEDS: SODIUM CHLORIDE 0.9% 1,000 ML IV SCH ×2 (02:12→10:12)
[2020-12-23 05:08] LABS: CALCIUM 7.5 mg/dL (8.5-10.3); CREATININE 1.9 mg/dL (0.4-1.0)
[2020-12-23 05:09] LABS: BASOPHILS % (AUTO) 0.2 %; EOSINOPHILS # (AUTO) 0.1 10^3/uL (0.0-0.7); EOSINOPHILS % (AUTO) 0.7 %; LYMPHOCYTES # (AUTO) 1.1 10^3/uL (1.5-3.5); LYMPHOCYTES % (AUTO) 12.6 %; MEAN CORPUSCULAR HEMOGLOBIN 28.7 pg (27.0-31.0); MEAN CORPUSCULAR HGB CONC 31.4 g/dL (32.0-36.0); MEAN CORPUSCULAR VOLUME 91.5 fL (81.0-99.0); MEAN PLATELET VOLUME 9.5 fL (7.9-10.8); MONOCYTES # (AUTO) 0.8 10^3/uL (0.0-1.0); MONOCYTES % (AUTO) 9.3 %; NEUTROPHILS # (AUTO) 6.9 10^3/uL (1.5-6.6); NEUTROPHILS % (AUTO) 76.8 %; PLT - PLATELET COUNT 147 10^3/uL (130-450); RED BLOOD COUNT 2.23 10^6/uL (4.20-5.40); RED CELL DISTRIBUTION WIDTH 14.1 % (12.0-15.0); WHITE BLOOD COUNT 8.9 x10^3/uL (4.8-10.8)
[2020-12-23 05:22] LABS: HGB - HEMOGLOBIN 6.4 g/dL (12.0-16.0)
[2020-12-23] MEDS: traMADol 50 MG TABLET PO PRN (05:58)
[2020-12-23] MEDS ORDERED: LORazepam 0.5 MG TABLET PO PRN (08:17)
[2020-12-23] MEDS: polyethylene glycoL 3350 17 GM PACKET PO SCH (10:10)
[2020-12-23] MEDS: SENNA 8.6 MG TABLET PO SCH (10:11)
[2020-12-23] MEDS: METOPROLOL SUCCINATE 50 MG TABLET PO SCH (10:11)
[2020-12-23] MEDS: DOCUSATE SODIUM 250 MG CAPSULE PO SCH (10:11)
[2020-12-23] MEDS: HEPARIN 5,000 UNIT/ML VIAL SUBQ SCH ×2 (10:17→20:17)
[2020-12-23] MEDS: ethyl alcohoL 62% SWAB AMPULE NAS SCH ×2 (10:21→20:17)
--- NOTE | 2020-12-23 15:30 | PROVIDER PROGRESS NOTE ---
Subjective - General Admit Date: 12/22/20 Procedure Date: 12/21/20 Post Op Days: 2 - Review of Systems Wound/Incisions: positive: Dressing dry and intact, Drainage Musculoskeletal: positive: Shoulder pain (No complaints right hip, vague left shoulder pain). negative: Joint swelling Objective - Patient Data Vital Signs: Vital Signs x48h Temp Pulse Pulse Resp BP BP Pulse Ox 12/23/20 13:58 36.4 C L 79 16 131/58 H 12/23/20 11:06 36.9 C 82 16 119/54 L 12/23/20 10:43 36.9 C 107 H 16 120/64 12/23/20 08:02 36.7 C 69 16 111/54 L 97 Weight: Weight 12/21/20 12/22/20 12/23/20 23:59 23:59 23:59 Weight (kg) 70 kg Intake & Output: Intake and Output Totals x24h 12/21/20 12/22/20 12/23/20 23:59 23:59 23:59 Intake Total 1450 1800 2655 Output Total 1350 600 450 Balance 100 1200 2205 - Lab Results Lab Results: 12/23/20 04:45 12/23/20 04:45 Other Lab Results: Lab Results x24hrs 12/23/20 12/23/20 12/23/20 Range/Units 04:45 04:45 04:45 WBC 8.9 (4.8-10.8) x10^3/uL RBC 2.23 L (4.20-5.40) 10^6/uL Hgb 6.4 L* (12.0-16.0) g/dL Hct 20.4 L (37.0-47.0) % MCV 91.5 (81.0-99.0) fL MCH 28.7 (27.0-31.0) pg MCHC 31.4 L (32.0-36.0) g/dL RDW 14.1 (12.0-15.0) % Plt Count 147 (130-450) 10^3/uL MPV 9.5 (7.9-10.8) fL Neut # (Auto) 6.9 H (1.5-6.6) 10^3/uL Lymph # (Auto) 1.1 L (1.5-3.5) 10^3/uL [place] # (Auto) 0.8 (0.0-1.0) 10^3/uL Eos # (Auto) 0.1 (0.0-0.7) 10^3/uL Baso # (Auto) 0.0 (0.0-0.1) 10^3/uL Absolute Nucleated RBC 0.00 x10^3/uL Nucleated RBC % 0.0 /100WBC Sodium 131 L (135-145) mmol/L Potassium 4.1 (3.5-5.0) mmol/L Chloride 101 (101-111) mmol/L Carbon Dioxide 20 L (21-32) mmol/L Anion Gap 10.0 (6-13) BUN 38 H (6-20) mg/dL Creatinine 1.9 H (0.4-1.0) mg/dL Estimated GFR (MDRD) 25 L (>89) Glucose 111 H (70-100) mg/dL Calcium 7.5 L (8.5-10.3) mg/dL Troponin I High Sens 28.3 H* (2.3-14.8) ng/L Blood Type Blood Type Recheck Antibody Screen Antibody Identification Crossmatch IS Only 12/22/20 12/22/20 12/22/20 Range/Units 21:08 21:08 15:00 WBC (4.8-10.8) x10^3/uL RBC (4.20-5.40) 10^6/uL Hgb 6.9 L* (12.0-16.0) g/dL Hct 21.8 L (37.0-47.0) % MCV (81.0-99.0) fL MCH (27.0-31.0) pg MCHC (32.0-36.0) g/dL RDW (12.0-15.0) % Plt Count (130-450) 10^3/uL MPV (7.9-10.8) fL Neut # (Auto) (1.5-6.6) 10^3/uL Lymph # (Auto) (1.5-3.5) 10^3/uL [place] # (Auto) (0.0-1.0) 10^3/uL Eos # (Auto) (0.0-0.7) 10^3/uL Baso # (Auto) (0.0-0.1) 10^3/uL Absolute Nucleated RBC x10^3/uL Nucleated RBC % /100WBC Sodium (135-145) mmol/L Potassium (3.5-5.0) mmol/L Chloride (101-111) mmol/L Carbon Dioxide (21-32) mmol/L Anion Gap (6-13) BUN (6-20) mg/dL Creatinine (0.4-1.0) mg/dL Estimated GFR (MDRD) (>89) Glucose (70-100) mg/dL Calcium (8.5-10.3) mg/dL Troponin I High Sens 34.1 H* 26.3 H* (2.3-14.8) ng/L Blood Type Blood Type Recheck Antibody Screen Antibody Identification Crossmatch IS Only 12/22/20 12/22/20 Range/Units 15:00 12:20 WBC (4.8-10.8) x10^3/uL RBC (4.20-5.40) 10^6/uL Hgb (12.0-16.0) g/dL Hct (37.0-47.0) % MCV (81.0-99.0) fL MCH (27.0-31.0) pg MCHC (32.0-36.0) g/dL RDW (12.0-15.0) % Plt Count (130-450) 10^3/uL MPV (7.9-10.8) fL Neut # (Auto) (1.5-6.6) 10^3/uL Lymph # (Auto) (1.5-3.5) 10^3/uL [place] # (Auto) (0.0-1.0) 10^3/uL Eos # (Auto) (0.0-0.7) 10^3/uL Baso # (Auto) (0.0-0.1) 10^3/uL Absolute Nucleated RBC x10^3/uL Nucleated RBC % /100WBC Sodium (135-145) mmol/L Potassium (3.5-5.0) mmol/L Chloride (101-111) mmol/L Carbon Dioxide (21-32) mmol/L Anion Gap (6-13) BUN (6-20) mg/dL Creatinine (0.4-1.0) mg/dL Estimated GFR (MDRD) (>89) Glucose (70-100) mg/dL Calcium (8.5-10.3) mg/dL Troponin I High Sens (2.3-14.8) ng/L Blood Type O POSITIVE Blood Type Recheck O POSITIVE Antibody Screen POSITIVE Antibody Identification Warm Auto Antibody Crossmatch IS Only See Detail - Current Medications Current Medications: Current Medications Generic Name Dose Route Start Last Admin Trade Name Freq PRN Reason Stop Dose Admin Acetaminophen 1,000 mg 12/21/20 12:00 12/23/20 12:50 Acetaminophen 500 Mg Tablet PO 1,000 mg Q6HR ASYA Administration Alcohol 1 amp 12/21/20 21:00 12/23/20 10:21 Ethyl Alcohol 62% Swab Ampule JABIER 1 amp BID ASYA Administration Docusate Sodium 250 - 500 mg 12/23/20 09:00 12/23/20 10:11 Docusate Sodium 250 Mg Capsule PO 250 mg DAILY ASYA Administration Heparin Sodium (Porcine) 5,000 unit 12/23/20 09:00 12/23/20 10:17 Heparin 5,000 Unit/Ml Vial SUBQ 5,000 unit BID ASYA Administration Sodium Chloride 1,000 mls @ 100 mls/hr 12/22/20 22:05 12/23/20 10:12 Normal Saline 0.9% IV 12/23/20 18:04 100 mls/hr .Q10H ASYA Administration Metoprolol Succinate 50 mg 12/22/20 09:00 12/23/20 10:11 Metoprolol Succinate 50 Mg Tablet PO 50 mg DAILY ASYA Administration Ondansetron HCl 4 mg 12/21/20 11:17 12/22/20 13:58 Ondansetron 4 Mg/2 Ml Vial IVP 4 mg Q6HR PRN Administration Nausea / Vomiting Polyethylene Glycol 17 gm 12/22/20 09:00 12/23/20 10:10 Polyethylene Glycol 3350 17 Gm Packet PO 17 gm DAILY ASYA Administration Senna 8.6 - 17.2 mg 12/23/20 09:00 12/23/20 10:11 Senna 8.6 Mg Tablet PO 8.6 mg DAILY ASYA Administration Sodium Chloride 10 ml 12/21/20 17:00 12/23/20 15:24 Sodium Chloride Flush 0.9% 10 Ml Syringe IVP Not Given 0100,0900,1700 ASYA Sodium Chloride 10 ml 12/21/20 11:17 12/22/20 13:58 Sodium Chloride Flush 0.9% 10 Ml Syringe IVP 10 ml PRN PRN Administration NEEDED PER PROVIDER ORDERS Tramadol HCl 50 mg 12/22/20 15:39 12/23/20 05:58 Tramadol 50 Mg Tablet PO 50 mg Q4HR PRN Administration PAIN - Physical Exam Wound/Incisions: positive: Healing well, Dressing dry and intact (No change in quarter size drainage on dressing from the day before) General Appearance: positive: No acute distress Respiratory: positive: Chest non-tender Extremities: positive: Non-tender Neurologic/Psychiatric: positive: Oriented x3 Impression/Plan - Problem List Problem List: Patient is 85-year-old female postop day 2 Right total hip arthroplasty. Patient comanaged by hospitalist and Ortho surgical care. Patient hemoglobin has been trending down is now currently 6.4 current plan is to await blood from [place] to transfuse. Patient denies any symptoms although does have some vague left shoulder pain. No pain to the right hip currently. Patient has been unable to continue occupational therapy after initial weakness yesterday. BUN to creatinine ratio still approximately 20-1. Patient suspected hypovolemic is coming is currently getting fluids.Patient plan: 1) transfuse 1 unit then recheck H&H. 2) continue monitoring vital signs 3) continue giving IV fluids and monitoring I's and O's. 4) consider urine osmolality And renal perfusion studies
--- NOTE | 2020-12-23 15:58 | PROVIDER PROGRESS NOTE ---
Assessment/Plan - Problem List (1) LISA (acute kidney injury) Assessment/Plan: 2 Patient creatinine is 1.9 today, slightly improved from yesterday 2.0. it is likely acute on chronic kidney disease, hold all NSAIDs, Tylenol as needed, continue IVF, continue lab monitor Patient's creatinine is at 2.0 from admission 1.3. pt had documented 600 cc urine as far. Continue hydration intravenous, Continue blood bank laboratory professional, It is likely prerenal azotemia. (2) Orthostatic dizziness Impression: 12/23 Significantly Improved, Continue IVF, Hold home blood pressure medicine now Patient had a significant orthostatic hypotension. PT could not finish the job, Patient denies chest pain, palpitation, it is likely from pt's dehydration. Continue intravenous IV fluids, Continue monitor orthostatic hypotension, Educated patient for fall prevention. (3) Anemia Impression: 2 HGB was 6.4 and pt will have one unit blood transfusion, continue H&H Patient has a hemoglobin 7.2 now, patient hemoglobin was 9.4 in the admission. anemia study is unremarkable, Likely acute blood loss from surgery. surgeon would like no blood transfusion now, will H&H continue monitor pt. (4) Aortic stenosis Impression: pt has Mild to moderate aortic aortic stenosis in recently echo, it seems pt Is hemodynamic stable now. We will continue monitor patient closely, Continue telemetry, Vital signs monitor (5) Hypothyroidism Impression: TSH is normal, continue home synthroid - Current Meds Current Meds: Current Medications Generic Name Dose Route Start Last Admin Trade Name Ajithq PRN Reason Stop Dose Admin Acetaminophen 1,000 mg 12/21/20 12:00 12/23/20 12:50 Acetaminophen 500 Mg Tablet PO 1,000 mg Q6HR ASYA Administration Alcohol 1 amp 12/21/20 21:00 12/23/20 10:21 Ethyl Alcohol 62% Swab Ampule JABIER 1 amp BID ASYA Administration Docusate Sodium 250 - 500 mg 12/23/20 09:00 12/23/20 10:11 Docusate Sodium 250 Mg Capsule PO 250 mg DAILY ASYA Administration Heparin Sodium (Porcine) 5,000 unit 12/23/20 09:12/23/20 10:17 Heparin 5,000 Unit/Ml Vial SUBQ 5,000 unit BID ASYA Administration Sodium Chloride 1,000 mls @ 100 mls/hr 12/22/20 22:05 12/23/20 10:12 Normal Saline 0.9% IV 12/23/20 18:04 100 mls/hr .Q10H ASYA Administration Metoprolol Succinate 50 mg 12/22/20 09:00 12/23/20 10:11 Metoprolol Succinate 50 Mg Tablet PO 50 mg DAILY ASYA Administration Ondansetron HCl 4 mg 12/21/20 11:17 12/22/20 13:58 Ondansetron 4 Mg/2 Ml Vial IVP 4 mg Q6HR PRN Administration Nausea / Vomiting Polyethylene Glycol 17 gm 12/22/20 09:00 12/23/20 10:10 Polyethylene Glycol 3350 17 Gm Packet PO 17 gm DAILY ASYA Administration Senna 8.6 - 17.2 mg 12/23/20 09:00 12/23/20 10:11 Senna 8.6 Mg Tablet PO 8.6 mg DAILY ASYA Administration Sodium Chloride 10 ml 12/21/20 17:00 12/23/20 15:24 Sodium Chloride Flush 0.9% 10 Ml Syringe IVP Not Given 0100,0900,1700 ASYA Sodium Chloride 10 ml 12/21/20 11:17 12/22/20 13:58 Sodium Chloride Flush 0.9% 10 Ml Syringe IVP 10 ml PRN PRN Administration NEEDED PER PROVIDER ORDERS Tramadol HCl 50 mg 12/22/20 15:39 12/23/20 05:58 Tramadol 50 Mg Tablet PO 50 mg Q4HR PRN Administration PAIN - Lab Result Fish Bone Diagrams: 12/23/20 04:45 12/23/20 04:45 - Additional Planning My Orders: My Active Orders 12/22/20 15:00 ANTIBODY IDENTIFICATION Stat RBC, LEUKOREDUCED Stat TYPE AND SCREEN Stat 12/22/20 15:39 traMADol [Ultram] 50 mg PO Q4HR PRN 12/22/20 22:05 Sodium Chloride 0.9% [Normal Saline 0.9%] 1,000 ml IV 100 mls/hr 12/23/20 08:17 LORazepam [Ativan] 0.25 mg PO Q6H PRN 12/23/20 09:00 Heparin 5,000 unit SUBQ BID 12/23/20 18:00 H&H [HEMOGLOBIN AND HEMATOCRIT] [HEME] Timed 12/24/20 05:00 BMP - BASIC METABOLIC PANEL [CHEM] DAILYLAB CBC - COMP BLD CT W/AUTO DIFF [HEME] DAILYLAB 12/24/20 07:00 Levothyroxine [Synthroid] 75 mcg PO QDAC 12/25/20 05:00 BMP - BASIC METABOLIC PANEL [CHEM] DAILYLAB CBC - COMP BLD CT W/AUTO DIFF [HEME] DAILYLAB Subjective - Subjective Patient Reports: Feeling Better Objective Vital Signs: Vital Signs - 24 hr 12/22/20 12/22/20 12/22/20 16:18 16:20 16:40 Temperature 36.6 C 36.6 C Heart Rate Heart Rate [ 94 Activity] Heart Rate [ 99 99 Brachial] Heart Rate [ 66 Sitting] Heart Rate [ 104 H Supine] Respiratory 18 18 Rate Blood Pressure Blood Pressure 78/39 L [Activity] Blood Pressure 129/58 L 129/58 L [Left Brachial artery] Blood Pressure 111/51 L [Sitting] Blood Pressure 113/57 L [Supine] O2 Saturation 99 98 12/22/20 12/22/20 12/23/20 21:00 23:47 04:11 Temperature 36.7 C 36.7 C 36.9 C Heart Rate Heart Rate [ Activity] Heart Rate [ 88 93 103 H Brachial] Heart Rate [ Sitting] Heart Rate [ Supine] Respiratory 18 16 18 Rate Blood Pressure Blood Pressure [Activity] Blood Pressure 139/60 H 135/58 H 142/55 H [Left Brachial artery] Blood Pressure [Sitting] Blood Pressure [Supine] O2 Saturation 99 94 99 12/23/20 12/23/20 12/23/20 06:04 06:07 06:14 Temperature Heart Rate Heart Rate [ Activity] Heart Rate [ 105 H 112 H 115 H Brachial] Heart Rate [ Sitting] Heart Rate [ Supine] Respiratory Rate Blood Pressure Blood Pressure [Activity] Blood Pressure 145/61 H 129/59 L 130/69 [Left Brachial artery] Blood Pressure [Sitting] Blood Pressure [Supine] O2 Saturation 12/23/20 12/23/20 12/23/20 08:02 10:43 11:06 Temperature 36.7 C 36.9 C 36.9 C Heart Rate 107 H 82 Heart Rate [ Activity] Heart Rate [ 69 Brachial] Heart Rate [ Sitting] Heart Rate [ Supine] Respiratory 16 16 16 Rate Blood Pressure 120/64 119/54 L Blood Pressure [Activity] Blood Pressure 111/54 L [Left Brachial artery] Blood Pressure [Sitting] Blood Pressure [Supine] O2 Saturation 97 12/23/20 13:58 Temperature 36.4 C L Heart Rate 79 Heart Rate [ Activity] Heart Rate [ Brachial] Heart Rate [ Sitting] Heart Rate [ Supine] Respiratory 16 Rate Blood Pressure 131/58 H Blood Pressure [Activity] Blood Pressure [Left Brachial artery] Blood Pressure [Sitting] Blood Pressure [Supine] O2 Saturation Oxygen O2 Source Room air I&O (Last 24 Hrs): Intake and Output Totals x24h 12/21/20 12/22/20 12/23/20 23:59 23:59 23:59 Intake Total 1450 1800 2655 Output Total 1350 600 450 Balance 100 1200 2205 General: Alert, Oriented x3, Cooperative, No acute distress HEENT: Atraumatic Neck: Supple Lymphatic: no adenopathy Neuro: Alert, Non Focal, Oriented Times 3 Cardiovascular: Regular rate, Normal S1, Normal S2 Respiratory: Chest non-tender, No respiratory distress, Breath sounds nml Abdomen: Normal bowel sounds, Soft, No tenderness Extremities: Normal pulses - Results Results: Laboratory Results WBC 8.9 x10^3/uL (4.8-10.8) 12/23/20 04:45 RBC 2.23 10^6/uL (4.20-5.40) L 12/23/20 04:45 Hgb 6.4 g/dL (12.0-16.0) L* 12/23/20 04:45 Hct 20.4 % (37.0-47.0) L 12/23/20 04:45 MCV 91.5 fL (81.0-99.0) 12/23/20 04:45 MCH 28.7 pg (27.0-31.0) 12/23/20 04:45 MCHC 31.4 g/dL (32.0-36.0) L 12/23/20 04:45 RDW 14.1 % (12.0-15.0) 12/23/20 04:45 Plt Count 147 10^3/uL (130-450) 12/23/20 04:45 MPV 9.5 fL (7.9-10.8) 12/23/20 04:45 Reticulocyte % (Auto) 2.21 % (0.5-2.3) 12/21/20 19:21 Neut # (Auto) 6.9 10^3/uL (1.5-6.6) H 12/23/20 04:45 Lymph # (Auto) 1.1 10^3/uL (1.5-3.5) L 12/23/20 04:45 [place] # (Auto) 0.8 10^3/uL (0.0-1.0) 12/23/20 04:45 Eos # (Auto) 0.1 10^3/uL (0.0-0.7) 12/23/20 04:45 Baso # (Auto) 0.0 10^3/uL (0.0-0.1) 12/23/20 04:45 Absolute Nucleated RBC 0.00 x10^3/uL 12/23/20 04:45 Nucleated RBC % 0.0 /100WBC 12/23/20 04:45 Absolute Retic 0.070 10^6/uL (0.020-0.110) 12/21/20 19:21 Sodium 131 mmol/L (135-145) L 12/23/20 04:45 Potassium 4.1 mmol/L (3.5-5.0) 12/23/20 04:45 Chloride 101 mmol/L (101-111) 12/23/20 04:45 Carbon Dioxide 20 mmol/L (21-32) L 12/23/20 04:45 Anion Gap 10.0 (6-13) 12/23/20 04:45 BUN 38 mg/dL (6-20) H 12/23/20 04:45 Creatinine 1.9 mg/dL (0.4-1.0) H 12/23/20 04:45 Estimated GFR (MDRD) 25 (>89) L 12/23/20 04:45 Glucose 111 mg/dL (70-100) H 12/23/20 04:45 POC Whole Bld Glucose 76 mg/dL (70 - 100) 12/21/20 07:19 Calcium 7.5 mg/dL (8.5-10.3) L 12/23/20 04:45 Iron 33 ug/dL (28-170) 12/21/20 19:21 TIBC 319 ug/dL (250-450) 12/21/20 19:21 % Saturation 10 % (20-50) L 12/21/20 19:21 Transferrin 228 mg/dL (192-382) 12/21/20 19:21 Ferritin 61.4 ng/mL (11.0-306.8) 12/21/20 19:21 Total Bilirubin 0.4 mg/dL (0.2-1.0) 12/21/20 13:55 AST 27 IU/L (10-42) 12/21/20 13:55 ALT 16 IU/L (10-60) 12/21/20 13:55 Alkaline Phosphatase 78 IU/L (42-121) 12/21/20 13:55 Lactate Dehydrogenase 187 IU/L (91-225) 12/21/20 19:21 Troponin I High Sens 28.3 ng/L (2.3-14.8) H* 12/23/20 04:45 Total Protein 6.4 g/dL (6.7-8.2) L 12/21/20 13:55 Albumin 3.6 g/dL (3.2-5.5) 12/21/20 13:55 Globulin 2.8 g/dL (2.1-4.2) 12/21/20 13:55 Albumin/Globulin Ratio 1.3 (1.0-2.2) 12/21/20 13:55 Vitamin B12 220 pg/mL (180-914) 12/21/20 19:21 TSH 2.59 uIU/mL (0.34-5.60) 12/21/20 13:55 Blood Type O POSITIVE 12/22/20 15:00 Blood Type Recheck O POSITIVE 12/22/20 12:20 Antibody Screen POSITIVE 12/22/20 15:00 Antibody Identification Cold Antibody Warm Auto Antibody 12/22/20 15:00 Antibody Identification Cold Antibody Warm Auto Antibody 12/22/20 15:00 Crossmatch IS Only See Detail 12/22/20 15:00 ABX Reporting Has patient been on IV antibiotics over the past 48 hours?: No Current Medications - Current Medications Current Medications: Active Medications Acetaminophen (Acetaminophen 500 Mg Tablet) 1,000 mg PO Q6HR PRN PRN Reason: PAIN Alcohol (Ethyl Alcohol 62% Swab Ampule) 1 amp JABIER BID [facility] Last Admin: 12/23/20 10:21 Dose: 1 amp Documented by: Docusate Sodium (Docusate Sodium 250 Mg Capsule) 250 - 500 mg PO DAILY [facility] Last Admin: 12/23/20 10:11 Dose: 250 mg Documented by: Heparin Sodium (Porcine) (Heparin 5,000 Unit/Ml Vial) 5,000 unit SUBQ BID [facility] Last Admin: 12/23/20 10:17 Dose: 5,000 unit Documented by: Sodium Chloride (Normal Saline 0.9%) 1,000 mls @ 100 mls/hr IV .Q10H [facility] Stop: 12/23/20 18:04 Last Admin: 12/23/20 10:12 Dose: 100 mls/hr Documented by: Levothyroxine Sodium (Levothyroxine 75 Mcg Tablet) 75 mcg PO QDAC [facility] Lorazepam (Lorazepam 0.5 Mg Tablet) 0.25 mg PO Q6H PRN PRN Reason: Anxiety Metoclopramide HCl (Metoclopramide 10 Mg/2 Ml Vial) 10 mg IVP Q6HR PRN PRN Reason: N/V not relieved by Zofran Metoprolol Succinate (Metoprolol Succinate 50 Mg Tablet) 50 mg PO DAILY [facility] Last Admin: 12/23/20 10:11 Dose: 50 mg Documented by: Ondansetron HCl (Ondansetron 4 Mg/2 Ml Vial) 4 mg IVP Q6HR PRN PRN Reason: Nausea / Vomiting Last Admin: 12/22/20 13:58 Dose: 4 mg Documented by: Polyethylene Glycol (Polyethylene Glycol 3350 17 Gm Packet) 17 gm PO DAILY [facility] Last Admin: 12/23/20 10:10 Dose: 17 gm Documented by: Senna (Senna 8.6 Mg Tablet) 8.6 - 17.2 mg PO DAILY [facility] Last Admin: 12/23/20 10:11 Dose: 8.6 mg Documented by: Sodium Chloride (Sodium Chloride Flush 0.9% 10 Ml Syringe) 10 ml IVP 0100,0900,1700 [facility] Last Admin: 12/23/20 15:24 Dose: Not Given Documented by: Sodium Chloride (Sodium Chloride Flush 0.9% 10 Ml Syringe) 10 ml IVP PRN PRN PRN Reason: NEEDED PER PROVIDER ORDERS Last Admin: 12/22/20 13:58 Dose: 10 ml Documented by: Tramadol HCl (Tramadol 50 Mg Tablet) 50 mg PO Q4HR PRN PRN Reason: PAIN Last Admin: 12/23/20 05:58 Dose: 50 mg Documented by: Aspirin Chewable [[place] Aspirin] 81 mg PO DAILY 03/02/14 Levothyroxine [Synthroid] 75 mcg PO DAILY 03/02/14 Metoprolol Succinate 50 mg PO DAILY 03/02/14 Grady-3/Dha/Epa/Fish Oil [Fish Oil] 1,200 mg PO DAILY 03/02/14 Simvastatin 20 mg PO QPM 03/02/14 diphenhydrAMINE HCl [Benadryl] 12.5 mg PO BID 03/02/14 Acetaminophen [Acetaminophen Extra Strength] 500 mg PO TID PRN 12/13/20 Cholecalciferol [Vitamin D3] 50 mcg PO DAILY 12/13/20 Losartan Potassium [Cozaar] 100 mg PO DAILY 12/13/20 Meloxicam [Mobic] 15 mg PO DAILY 12/13/20 hydroCHLOROthiazide [Hydrodiuril] 25 mg PO DAILY 12/13/20
[2020-12-23] MEDS: ACETAMINOPHEN 500 MG TABLET PO PRN (17:40)
[2020-12-23 18:22] LABS: HGB - HEMOGLOBIN 7.7 g/dL (12.0-16.0)
[2020-12-24] MEDS: ACETAMINOPHEN 500 MG TABLET PO PRN ×2 (00:04→09:32)
[2020-12-24] MEDS: traMADol 50 MG TABLET PO PRN (05:17)
[2020-12-24 05:49] LABS: BASOPHILS % (AUTO) 0.4 %; EOSINOPHILS # (AUTO) 0.5 10^3/uL (0.0-0.7); EOSINOPHILS % (AUTO) 6.7 %; HGB - HEMOGLOBIN 8.1 g/dL (12.0-16.0); LYMPHOCYTES % (AUTO) 12.1 %; MEAN CORPUSCULAR HEMOGLOBIN 29.2 pg (27.0-31.0); MEAN CORPUSCULAR HGB CONC 31.5 g/dL (32.0-36.0); MEAN CORPUSCULAR VOLUME 92.8 fL (81.0-99.0); MEAN PLATELET VOLUME 9.8 fL (7.9-10.8); MONOCYTES # (AUTO) 0.7 10^3/uL (0.0-1.0); MONOCYTES % (AUTO) 8.9 %; NEUTROPHILS # (AUTO) 5.6 10^3/uL (1.5-6.6); NEUTROPHILS % (AUTO) 71.5 %; PLT - PLATELET COUNT 142 10^3/uL (130-450); RED BLOOD COUNT 2.77 10^6/uL (4.20-5.40); WHITE BLOOD COUNT 7.9 x10^3/uL (4.8-10.8)
[2020-12-24 05:57] LABS: CALCIUM 8.2 mg/dL (8.5-10.3); CREATININE 1.4 mg/dL (0.4-1.0)
[2020-12-24] MEDS ORDERED: LEVOTHYROXINE 75 MCG TABLET PO SCH (07:00)
[2020-12-24] MEDS: METOPROLOL SUCCINATE 50 MG TABLET PO SCH (09:32)
[2020-12-24] MEDS: HEPARIN 5,000 UNIT/ML VIAL SUBQ SCH (09:33)
[2020-12-24] MEDS: ethyl alcohoL 62% SWAB AMPULE NAS SCH (09:33)
--- NOTE | 2020-12-24 11:19 | Discharge Plan ---
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 You underwent a noneventful hip replacement, and postoperatively did have normal bleeding and needed to be transfused 1 unit. A normal amount of blood in a woman your age 12 g of hemoglobin. We do not know why you are already anemic before you were admitted but your admission hemoglobin was 9.4 g. With the surgery you lost a normal amount of blood and went down to 6.4 g. We transfused you 1 unit and at discharge you are now 8.1 g. You also had a reduction in your kidney function b efore admission. Your normal creatinine (which measures a protein in your urine that is filtered by your kidneys is usually 0.9 or 1.0) You were admitted with a creatinine of 1.3 which is already a little high. With surgery you maxed out at 2.0. At discharge you were 1.4. Plan of Treatment: 1. Please see your primary care provider, Dr. Neo Gonzalez, to make sure your follow-up blood work with regards to your kidney function and your anemia has improved. If you continue to be anemic Dr. Gonzalez may have to do a work-up to find out why you are anemic. 2. Please see Dr. Bowles on December 26. You already have an appointment and he will take a look at your wound to make sure it is healing. 3. Dr. Bowles would like you to prevent blood clots with an aspirin, twice a day. Take that for the next 2 weeks. 4. Because I want your kidney function to improve, you can no longer take meloxicam. Do not take any Aleve, ibuprofen, Naprosyn, or any nonsteroidal anti-inflammatory. You can take Tylenol [id number]. You can also take the Ultram that was prescribed to you before surgery. 5. Dr. Bowles would like you to start outpatient physical therapy. That has been ordered. You can use a walker and weight bear as tolerated on that operated leg. Do no cross your legs. You can take a shower but keep the wound clean and dry afterwards. Care Goals: To go back to baseline, normal physical activity for you. This will be achieved after following through with physical therapy and improving her strength and endurance. Assessment: Patient is enthusiastically wanting to go home. She promises to follow through. Follow-Up Care: Outpatient Rehab - PT No Smoking: If you smoke, Please STOP! Call for help. Follow-up with: Neo Gonzalez DO [Primary Care Provider] - Murtaza Bowles MD [Provider Admit Priv/Credential] -
--- NOTE | 2020-12-24 11:22 | PROVIDER PROGRESS NOTE ---
Subjective - General Admit Date: 12/22/20 Procedure Date: 12/21/20 Post Op Days: 3 Procedure Performed: right total hip arthroplasty - Review of Systems Wound/Incisions: positive: Healing well, Dressing dry and intact (No change in quarter size drainage on dressing from the day before) General: positive: No symptoms Pulmonary: positive: No symptoms Cardiovascular: positive: No symptoms Musculoskeletal: positive: Shoulder pain (No complaints right hip, vague left shoulder pain). negative: Joint swelling Neurological: Psychiatric: positive: No symptoms - Other Other Information/Narrative: She underwent a right total hip arthroplasty. Her premorbid status revealed someone with a greater risk with a ASA of at least 3, 85 years of age, long-term cigarette smoker who has preoperative anemia and mild kidney dysfunction. 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 She is doing well today, day of discharge. She reports minimal pain at the surgical site of the right hip. She has no fever or chills. She denies chest pain or shortness of breath. She did have some orthostatic hypotension which has resolved. She did have a postoperative anemia with her hemoglobin being 6.4 at its lowest; did receive 2 units of packed red blood cells and today her hemoglobin is above 8. She has no symptoms of anemia. Her renal dysfunction has improved; she did have increased creatinine postop which has decreased close to her baseline preop. Her exam reveals that her dressing is dry and intact, mild swelling, no sign of hematoma at surgical site, no neurovascular deficit to right leg. She has been receiving physical therapy. She is to ambulate with a walker, weightbearing as tolerated. The only precautions are to avoid crossing her legs. She may shower with the dressing in place. She has a return appointment to the orthopedic clinic for follow-up this coming 12/26/2020. She has received pain medications preoperatively to use after surgery as needed. Her meloxicam is being stopped. Otherwise, she can resume her home medications. Aspirin 81 mg twice daily for 6 weeks will use for deep venous thrombosis prophylaxis. Objective - Patient Data Vital Signs: Vital Signs x48h Temp Pulse Resp BP Pulse Ox 12/24/20 08:56 36.5 C 77 17 138/52 H 97 12/24/20 05:14 75 105/80 12/24/20 04:14 36.4 C L 84 20 157/66 H 100 Intake & Output: Intake and Output Totals x24h 12/22/20 12/23/20 12/24/20 23:59 23:59 23:59 Intake Total 1800 3055 1050 Output Total 600 450 550 Balance 1200 2605 500 - Lab Results Lab Results: 12/24/20 05:16 12/24/20 05:16 Other Lab Results: Lab Results x24hrs 12/24/20 12/24/20 12/23/20 Range/Units 05:16 05:16 18:16 WBC 7.9 (4.8-10.8) x10^3/uL RBC 2.77 L (4.20-5.40) 10^6/uL Hgb 8.1 L 7.7 L (12.0-16.0) g/dL Hct 25.7 L 24.4 L (37.0-47.0) % MCV 92.8 (81.0-99.0) fL MCH 29.2 (27.0-31.0) pg MCHC 31.5 L (32.0-36.0) g/dL RDW 14.0 (12.0-15.0) % Plt Count 142 (130-450) 10^3/uL MPV 9.8 (7.9-10.8) fL Neut # (Auto) 5.6 (1.5-6.6) 10^3/uL Lymph # (Auto) 1.0 L (1.5-3.5) 10^3/uL Nuckolls # (Auto) 0.7 (0.0-1.0) 10^3/uL Eos # (Auto) 0.5 (0.0-0.7) 10^3/uL Baso # (Auto) 0.0 (0.0-0.1) 10^3/uL Absolute Nucleated RBC 0.00 x10^3/uL Nucleated RBC % 0.0 /100WBC Sodium 138 (135-145) mmol/L Potassium 4.2 (3.5-5.0) mmol/L Chloride 105 (101-111) mmol/L Carbon Dioxide 19 L (21-32) mmol/L Anion Gap 14.0 H (6-13) BUN 32 H (6-20) mg/dL Creatinine 1.4 H (0.4-1.0) mg/dL Estimated GFR (MDRD) 36 L (>89) Glucose 96 (70-100) mg/dL Calcium 8.2 L (8.5-10.3) mg/dL Blood Type Antibody Screen Antibody Identification Crossmatch IS Only 12/22/20 Range/Units 15:00 WBC (4.8-10.8) x10^3/uL RBC (4.20-5.40) 10^6/uL Hgb (12.0-16.0) g/dL Hct (37.0-47.0) % MCV (81.0-99.0) fL MCH (27.0-31.0) pg MCHC (32.0-36.0) g/dL RDW (12.0-15.0) % Plt Count (130-450) 10^3/uL MPV (7.9-10.8) fL Neut # (Auto) (1.5-6.6) 10^3/uL Lymph # (Auto) (1.5-3.5) 10^3/uL [place]oll[place] # (Auto) (0.0-1.0) 10^3/uL Eos # (Auto) (0.0-0.7) 10^3/uL Baso # (Auto) (0.0-0.1) 10^3/uL Absolute Nucleated RBC x10^3/uL Nucleated RBC % /100WBC Sodium (135-145) mmol/L Potassium (3.5-5.0) mmol/L Chloride (101-111) mmol/L Carbon Dioxide (21-32) mmol/L Anion Gap (6-13) BUN (6-20) mg/dL Creatinine (0.4-1.0) mg/dL Estimated GFR (MDRD) (>89) Glucose (70-100) mg/dL Calcium (8.5-10.3) mg/dL Blood Type O POSITIVE Antibody Screen POSITIVE Antibody Identification Warm Auto Antibody Crossmatch IS Only See Detail - Current Medications Current Medications: Current Medications Generic Name Dose Route Start Last Admin Trade Name Freq PRN Reason Stop Dose Admin Acetaminophen 1,000 mg 12/23/20 15:59 12/24/20 09:32 Acetaminophen 500 Mg Tablet PO 1,000 mg Q6HR PRN Administration PAIN Alcohol 1 amp 12/21/20 21:00 12/24/20 09:33 Ethyl Alcohol 62% Swab Ampule JABIER 1 amp BID ASYA Administration Docusate Sodium 250 - 500 mg 12/23/20 09:00 12/23/20 10:11 Docusate Sodium 250 Mg Capsule PO 250 mg DAILY ASYA Administration Heparin Sodium (Porcine) 5,000 unit 12/23/20 09:00 12/24/20 09:33 Heparin 5,000 Unit/Ml Vial SUBQ 5,000 unit BID ASYA Administration Levothyroxine Sodium 75 mcg 12/24/20 07:00 12/24/20 06:29 Levothyroxine 75 Mcg Tablet PO 75 mcg QDAC ASYA Administration Metoprolol Succinate 50 mg 12/22/20 09:00 12/24/20 09:32 Metoprolol Succinate 50 Mg Tablet PO 50 mg DAILY ASYA Administration Ondansetron HCl 4 mg 12/21/20 11:17 12/22/20 13:58 Ondansetron 4 Mg/2 Ml Vial IVP 4 mg Q6HR PRN Administration Nausea / Vomiting Polyethylene Glycol 17 gm 12/22/20 09:00 12/23/20 10:10 Polyethylene Glycol 3350 17 Gm Packet PO 17 gm DAILY ASYA Administration Senna 8.6 - 17.2 mg 12/23/20 09:00 12/23/20 10:11 Senna 8.6 Mg Tablet PO 8.6 mg DAILY ASYA Administration Sodium Chloride 10 ml 12/21/20 17:00 12/23/20 23:38 Sodium Chloride Flush 0.9% 10 Ml Syringe IVP Not Given 0100,0900,1700 ASYA Sodium Chloride 10 ml 12/21/20 11:17 12/22/20 13:58 Sodium Chloride Flush 0.9% 10 Ml Syringe IVP 10 ml PRN PRN Administration NEEDED PER PROVIDER ORDERS Tramadol HCl 50 mg 12/22/20 15:39 12/24/20 05:17 Tramadol 50 Mg Tablet PO 50 mg Q4HR PRN Administration PAIN
--- NOTE | 2020-12-24 11:35 | DISCHARGE SUMMARY ---
"Discharge Summary Admit Date: 12/21/20 Discharge Date: 12/24/20 Discharging Provider: Radha Lopez MD Primary Care Provider: Neo Gonzalez MD Code Status: Attempt Resuscitation Condition at Discharge: Fair Discharge Disposition: 01 Home, Self Care - DIAGNOSES Discharge Diagnoses with Status of Each Condition: 1. Aseptic necrosis femoral head 2. Acute on chronic kidney disease 3. Acute blood loss anemia superimposed on chronic anemia 4. Orthostatic dizziness resolved 5. Moderate aortic stenosis 6. Hypothyroidism - HPI History of Present Illness: Patient presented his chronic right hip pain to orthopedic surgeon. She had groin and thigh pain chronic knee pain for 2 years. Was occurring daily and al most with every step. She is already tried medications, walker, modification of activity and it was getting worse enough that it was affecting her activities of daily living. And she was spending most of her time sitting. Cortisone injections had failed her. She was seen by her primary care provider and cardiology before surgery and there was no contraindications to surgery. 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 She quit 6 months ago. Hypertension. Hyperlipide thais. We became involved in the patient's care in the postoperative setting. Dr. Yip to surgery and asked the hospital medicine service to see her for reconciliation of medications, and follow-up of any medical problems. Preoperative creatinine is anywhere from 0.9-1.0. Her creatinine went to 1.18 May 2020, 1.19 August 2020, and was 1.3 on admission. In March 2019 hemoglobin was normal at 2.8. By August 2020 she was 11, then 10.6. On admission she was 9.4. - CONSULTS | PROCEDURES Consultations: Hospital medicine team Procedures: Total hip arthroplasty using [employer] M[employer] total hip system. - HOSPITAL COURSE Hospital Course: She underwent a noneventful hip replacement and postoperatively he did have acute blood loss anemia requiring transfusion of 1 unit. Prior to admission the patient already has anemia of unknown etiology as well as chronic kidney disease. During her stay she did have an increase in her creatinine as well. She soon states stable with her blood work and improved. She progressed with physical therapy. Was able to return to home. Dr. Yip wanted her to be on DVT prophylaxis with aspirin twice a day. I did warn her to make sure she saw her primary care provider to get follow-up CBC to make sure the aspirin did not give her ulcers which then would worsen her kidney insufficiency or give her ulcers with worse anemia. I did also ask her not to take any more meloxicam while she was on aspirin. I would strongly recommend, due to her chronic kidney disease that she not began at any nonsteroidal therapy at all. She can take Tylenol [id number] or Ultram by prescription if her pain was severe enough. She was sent home with outpatient physical therapy. A walker. To weight-bear as tolerated. To take a shower if she so desired but to keep the wound clean and dry. She is asked to see Dr. Gonzalez in follow-up. To see Dr. Yip in the next 2 weeks. Discharge exam showed an 85-year-old female who is 4 foot 11 inches tall w eighing 70 kg. Temperature was 36.5. Heart rate was 79. Blood pressure 115/44. She was not orthostatic on blood pressure and pulse check the morning of discharge. Respirations were 16 and unlabored. She is 97% on room air. She is alert and oriented. Following commands. She was able to ambulate with a walker to the bathroom and able to transition out of the bed with standby assist. Lungs were clear to auscultation and percussion. She had a regular rate and rhythm with a soft systolic murmur. Abdomen was benign. Mild trace edema of both feet. Wound was clean, dry. Following commands, and eating well. Greater than 30 minutes was spent coordinating discharge at the request of Dr. Bowles. - ALLERGIES Allergies/Adverse Reactions: Allergies Allergy/AdvReac Type Severity Reaction Status Date / Time lisinopril Allergy Unknown Verified 12/26/20 11:15 metoprolol Allergy Unknown Verified 12/26/20 11:15 - MEDICATIONS Home Medications: Ambulatory Orders Medication Instructions Recorded Confirmed Levothyroxine [Synthroid] 75 mcg PO DAILY 03/02/14 12/21/20 Metoprolol Succinate 50 mg PO DAILY 03/02/14 12/21/20 Titus-3/Dha/Epa/Fish Oil [Fish Oil 1,200 mg PO DAILY 03/02/14 12/21/20 Dr 500 mg Softgel] Simvastatin 20 mg PO QPM 03/02/14 12/21/20 diphenhydrAMINE HCl [Benadryl] 12.5 mg PO BID 03/02/14 12/21/20 Acetaminophen [Acetaminophen Extra 500 mg PO TID PRN 12/13/20 12/21/20 Strength] Cholecalciferol [Vitamin D3] 50 mcg PO DAILY 12/13/20 12/13/20 Losartan Potassium [Cozaar] 100 mg PO DAILY 12/13/20 12/13/20 hydroCHLOROthiazide [Hydrodiuril] 25 mg PO DAILY 12/13/20 12/13/20 Acetaminophen [Tylenol] 1,000 mg PO Q6HR PRN 12/24/20 Aspirin [Aspirin EC] 81 mg PO BID #30 mg 12/24/20 Docusate Sodium 250Mg Capsule 250 - 500 mg PO DAILY 12/24/20 [Colace 250Mg Capsule] traMADol [Ultram] 50 mg PO Q4HR PRN 12/24/20 - LABS Result Diagrams: 12/24/20 05:16 12/24/20 05:16"
[2020-12-24] MEDS: DOCUSATE SODIUM 250 MG CAPSULE PO SCH (12:25)
[2020-12-24] MEDS: SENNA 8.6 MG TABLET PO SCH (12:26)
[2020-12-24] MEDS: SODIUM CHLORIDE FLUSH 0.9% 10 ML SYRINGE IVP SCH (12:26)
[2020-12-24] MEDS: polyethylene glycoL 3350 17 GM PACKET PO SCH (12:26)
[2020-12-24 14:31] VITALS: BP 115/44
== END 2020-12-24 14:41 | disposition home or self-care (01) ==
LOC: SDS 06:24 → OBS 12:02 → MS2 12:02 → SDS 12:02 → OBS 12-22 15:08 → UNDOFXSDCACCOM 12-22 15:08 → UNDOFXSDCSVC 12-22 15:08 → UNDOFXSDCRRACCOM 12-22 15:08 → MS2 12-23 13:43
PROVIDERS: ADMIT Orthopaedic Surgery; ATTEND Specialist
PROC: 0SR906A Replacement of Right Hip Joint with Oxidized Zirconium on Polyethylene Synthetic Substitute, Uncemented, Open Approach (ICD-10-PCS; principal; 2020-12-21 07:30)
DX: M16.11 Unilateral primary osteoarthritis, right hip (principal); M90.551 Osteonecrosis in diseases classified elsewhere, right thigh; N17.9 Acute kidney failure, unspecified; D62 Acute posthemorrhagic anemia; I12.9 Hypertensive chronic kidney disease with stage 1 through stage 4 chronic kidney disease, or unspecified chronic kidney disease; N18.9 Chronic kidney disease, unspecified; I95.1 Orthostatic hypotension; E86.0 Dehydration; E78.5 Hyperlipidemia, unspecified; E03.9 Hypothyroidism, unspecified; I35.0 Nonrheumatic aortic (valve) stenosis; M17.11 Unilateral primary osteoarthritis, right knee; M54.16 Radiculopathy, lumbar region; M85.80 Other specified disorders of bone density and structure, unspecified site; L50.9 Urticaria, unspecified; E66.9 Obesity, unspecified; J30.9 Allergic rhinitis, unspecified; Z68.31 Body mass index [BMI] 31.0-31.9, adult; Z79.82 Long term (current) use of aspirin; Z79.899 Other long term (current) drug therapy; Z85.3 Personal history of malignant neoplasm of breast; Z87.891 Personal history of nicotine dependence
CPT/HCPCS: 27130; 36415; 36430; 51701; 73501; 80048; 80053; 82607; 82728; 83540; 83615; 84443; 84466; 84484; 85014; 85018; 85025; 85045; 86850; 86870; 86900; 86901; 86920; 93005; 97162; 97166; 97530; A9270; C1776; G0378; J0131; J0690; J7120; P9016

== ENCOUNTER 2021-02-02 08:00 | Outpatient (CLI) | payer MEDICARE, OTHER ==
[2021-02-02 18:28] LABS: BASOPHILS % (AUTO) 0.5 %; EOSINOPHILS # (AUTO) 0.2 10^3/uL (0.0-0.7); EOSINOPHILS % (AUTO) 2.8 %; HCT - HEMATOCRIT 31.4 % (37.0-47.0); HGB - HEMOGLOBIN 9.6 g/dL (12.0-16.0); LYMPHOCYTES % (AUTO) 12.8 %; MEAN CORPUSCULAR HEMOGLOBIN 29.3 pg (27.0-31.0); MEAN CORPUSCULAR HGB CONC 30.6 g/dL (32.0-36.0); MEAN CORPUSCULAR VOLUME 95.7 fL (81.0-99.0); MEAN PLATELET VOLUME 12.2 fL (7.9-10.8); MONOCYTES # (AUTO) 0.9 10^3/uL (0.0-1.0); MONOCYTES % (AUTO) 11.1 %; NEUTROPHILS # (AUTO) 5.8 10^3/uL (1.5-6.6); NEUTROPHILS % (AUTO) 72.4 %; PLT - PLATELET COUNT 180 10^3/uL (130-450); RED BLOOD COUNT 3.28 10^6/uL (4.20-5.40); RED CELL DISTRIBUTION WIDTH 14.8 % (12.0-15.0)
[2021-02-02 18:54] LABS: ALBUMIN 3.4 g/dL (3.2-5.5); ALBUMIN/GLOBULIN RATIO 0.9 (1.0-2.2); BILIRUBIN,TOTAL 0.7 mg/dL (0.2-1.0); CALCIUM 8.9 mg/dL (8.5-10.3); CREATININE 1.2 mg/dL (0.4-1.0); POTASSIUM 3.6 mmol/L (3.5-5.0); TOTAL PROTEIN 7.2 g/dL (6.7-8.2)
[2021-02-02 19:08] LABS: FERRITIN 155.1 ng/mL (11.0-306.8)
== END 2021-02-02 23:59 | disposition home or self-care (01) ==
LOC: LAB.WCP 08:00
PROVIDERS: ATTEND Family Medicine
DX: D64.9 Anemia, unspecified (principal)
CPT/HCPCS: 36415; 80053; 82607; 82728; 83540; 84466; 85025

== ENCOUNTER 2021-04-04 10:02 | Outpatient (CLI) | payer MEDICARE, OTHER ==
[2021-04-04 12:43] LABS: BASOPHILS % (AUTO) 0.7 %; EOSINOPHILS # (AUTO) 0.3 10^3/uL (0.0-0.7); EOSINOPHILS % (AUTO) 7.6 %; HCT - HEMATOCRIT 36.3 % (37.0-47.0); HGB - HEMOGLOBIN 10.8 g/dL (12.0-16.0); LYMPHOCYTES # (AUTO) 1.3 10^3/uL (1.5-3.5); LYMPHOCYTES % (AUTO) 30.6 %; MEAN CORPUSCULAR HEMOGLOBIN 27.7 pg (27.0-31.0); MEAN CORPUSCULAR HGB CONC 29.8 g/dL (32.0-36.0); MEAN CORPUSCULAR VOLUME 93.1 fL (81.0-99.0); MEAN PLATELET VOLUME 11.4 fL (7.9-10.8); MONOCYTES # (AUTO) 0.4 10^3/uL (0.0-1.0); MONOCYTES % (AUTO) 8.8 %; NEUTROPHILS # (AUTO) 2.1 10^3/uL (1.5-6.6); NEUTROPHILS % (AUTO) 52.1 %; PLT - PLATELET COUNT 149 10^3/uL (130-450); RED CELL DISTRIBUTION WIDTH 15.7 % (12.0-15.0); WHITE BLOOD COUNT 4.1 x10^3/uL (4.8-10.8)
[2021-04-04 13:17] LABS: FERRITIN 63.9 ng/mL (11.0-306.8)
[2021-04-04 13:18] LABS: ALBUMIN 3.9 g/dL (3.2-5.5); BILIRUBIN,TOTAL 0.6 mg/dL (0.2-1.0); CALCIUM 9.1 mg/dL (8.5-10.3); CREATININE 1.2 mg/dL (0.4-1.0); POTASSIUM 3.9 mmol/L (3.5-5.0); TOTAL PROTEIN 7.8 g/dL (6.7-8.2)
== END 2021-04-04 10:03 | disposition home or self-care (01) ==
LOC: LAB.N 10:02
PROVIDERS: ATTEND Family Medicine
DX: D62 Acute posthemorrhagic anemia (principal); R06.02 Shortness of breath
CPT/HCPCS: 36415; 80053; 82607; 82728; 83540; 83880; 84466; 85025

== ENCOUNTER 2021-04-04 10:09 | Outpatient (CLI) | payer MEDICARE, OTHER ==
--- NOTE | 2021-04-05 09:38 | XRAY Report ---
PROCEDURE: Chest 2 View X-Ray INDICATIONS: SHORTNESS OF BREATH TECHNIQUE: 2 view(s) of the chest. COMPARISON: None. FINDINGS: Surgical changes and devices: None. Lungs and pleura: No pleural effusions or pneumothorax. Linear atelectasis in left mid lung field is seen. No focal infiltrate. Mediastinum: Aortic arch calcification is seen. Mildly tortuous thoracic aorta is noted. Heart size i s borderline enlarged Bones and chest wall: No suspicious bony abnormalities. Soft tissues appear unremarkable. IMPRESSION: Left mid lung field atelectasis/scarring. No focal infiltrate, pleural effusion or pneumo thorax. Reviewed by: Rubén Sun MD on 04/05/2021 9:36 AM PDT Approved by: Rubén Sun MD on 04/05/2021 9:36 AM PDT Station ID: [id number]
== END 2021-04-04 10:10 | disposition home or self-care (01) ==
LOC: DI.N 10:09
PROVIDERS: ATTEND Family Medicine
DX: J98.11 Atelectasis (principal); D62 Acute posthemorrhagic anemia; R06.02 Shortness of breath
CPT/HCPCS: 36415; 80053; 82607; 82728; 83540; 83880; 84466; 85025

== ENCOUNTER 2021-05-10 08:00 | Outpatient (CLI) | payer MEDICARE, OTHER ==
[2021-05-10 18:44] LABS: CALCIUM 9.1 mg/dL (8.5-10.3); CREATININE 1.2 mg/dL (0.4-1.0)
[2021-05-10 18:45] LABS: BASOPHILS % (AUTO) 0.8 %; EOSINOPHILS # (AUTO) 0.4 10^3/uL (0.0-0.7); EOSINOPHILS % (AUTO) 11.4 %; HGB - HEMOGLOBIN 11.6 g/dL (12.0-16.0); LYMPHOCYTES # (AUTO) 1.2 10^3/uL (1.5-3.5); LYMPHOCYTES % (AUTO) 31.1 %; MEAN CORPUSCULAR HEMOGLOBIN 27.9 pg (27.0-31.0); MEAN CORPUSCULAR HGB CONC 29.7 g/dL (32.0-36.0); MEAN CORPUSCULAR VOLUME 93.8 fL (81.0-99.0); MEAN PLATELET VOLUME 12.4 fL (7.9-10.8); MONOCYTES # (AUTO) 0.4 10^3/uL (0.0-1.0); MONOCYTES % (AUTO) 11.4 %; NEUTROPHILS # (AUTO) 1.7 10^3/uL (1.5-6.6); PLT - PLATELET COUNT 143 10^3/uL (130-450); RED BLOOD COUNT 4.16 10^6/uL (4.20-5.40); RED CELL DISTRIBUTION WIDTH 14.6 % (12.0-15.0); WHITE BLOOD COUNT 3.9 x10^3/uL (4.8-10.8)
== END 2021-05-10 23:59 | disposition home or self-care (01) ==
LOC: LAB.WCP 08:00
PROVIDERS: ATTEND Family Medicine
DX: I10 Essential (primary) hypertension (principal); D64.9 Anemia, unspecified
CPT/HCPCS: 36415; 80048; 85025

== ENCOUNTER 2021-07-28 10:04 | Outpatient (CLI) | payer MEDICARE, OTHER | END 2021-07-28 10:05 | disposition home or self-care (01) | LOC: DI 10:04 | PROVIDERS: ATTEND Family Medicine | DX: I35.0 Nonrheumatic aortic (valve) stenosis (principal); I10 Essential (primary) hypertension; Z87.891 Personal history of nicotine dependence; I31.3 Pericardial effusion (noninflammatory); I05.0 Rheumatic mitral stenosis; I77.810 Thoracic aortic ectasia; I87.8 Other specified disorders of veins | CPT/HCPCS: 93306 ==

== ENCOUNTER 2022-01-01 13:48 | Outpatient (CLI) | payer MEDICARE, OTHER ==
--- NOTE | 2022-01-01 16:33 | XRAY Report ---
PROCEDURE: Hip 2 View RT INDICATIONS: RIGHT HIP WEIGHTBEARING TECHNIQUE: 2 view(s) of the hip were acquired. COMPARISON: 12/21/2020 FINDINGS: Bones: Patient is status post prior right total hip arthroplasty. Right hip alignment is anatomic. T here is subtle increased radiolucency surrounding distal portion of right hip prosthesis within right femoral shaft concerning for early loosening. No fractures or dislocations. No suspicious bony lesi ons. The visualized pelvic ring appears intact. Soft tissues: No suspicious soft tissue calcifications or masses. IMPRESSION: Prior right total hip arthroplasty with anatomic alignment of right hip. No fracture or dislocation. Questionable increased radiolucency surrounding distal portion of right femoral prosthesis concerning for early loosening suggest clinical correlation and follow-up. Reviewed by: Rubén Sun MD on 01/01/2022 4:32 PM PST Approved by: Rubén Sun MD on 01/01/2022 4:32 PM PST Station ID: [id number]
== END 2022-01-01 13:49 | disposition home or self-care (01) ==
LOC: DI.WOS 13:48
PROVIDERS: ATTEND Physician Assistant
DX: Z47.1 Aftercare following joint replacement surgery (principal); Z96.641 Presence of right artificial hip joint

== ENCOUNTER 2022-09-10 15:35 | Outpatient (CLI) | payer MEDICARE, OTHER ==
[2022-09-10 17:36] LABS: BASOPHILS % (AUTO) 0.7 %; EOSINOPHILS # (AUTO) 0.4 10^3/uL (0.0-0.7); EOSINOPHILS % (AUTO) 8.8 %; HCT - HEMATOCRIT 38.8 % (37.0-47.0); HGB - HEMOGLOBIN 12.3 g/dL (12.0-16.0); LYMPHOCYTES % (AUTO) 23.5 %; MEAN CORPUSCULAR HEMOGLOBIN 28.2 pg (27.0-31.0); MEAN CORPUSCULAR HGB CONC 31.7 g/dL (32.0-36.0); MEAN PLATELET VOLUME 10.2 fL (7.9-10.8); MONOCYTES # (AUTO) 0.4 10^3/uL (0.0-1.0); MONOCYTES % (AUTO) 10.2 %; NEUTROPHILS # (AUTO) 2.4 10^3/uL (1.5-6.6); NEUTROPHILS % (AUTO) 56.6 %; PLT - PLATELET COUNT 185 10^3/uL (130-450); RED BLOOD COUNT 4.36 10^6/uL (4.20-5.40); WHITE BLOOD COUNT 4.2 x10^3/uL (4.8-10.8)
[2022-09-10 17:54] LABS: ALBUMIN 4.2 g/dL (3.2-5.5); ALBUMIN/GLOBULIN RATIO 1.2 (1.0-2.2); ALKALINE PHOSPHATASE 70 IU/L (42-121); ALT ALANINE AMINOTRANSFERASE 15 IU/L (10-60); AST ASPARTATE AMINOTRANSFERASE 22 IU/L (10-42); BILIRUBIN,TOTAL 0.4 mg/dL (0.2-1.0); BUN - BLOOD UREA NITROGEN 24 mg/dL (6-20); CALCIUM 9.3 mg/dL (8.5-10.3); CARBON DIOXIDE - CO2 27 mmol/L (21-32); CHLORIDE 103 mmol/L (101-111); CHOL/HDL RATIO 2.2 (<4.4); CHOLESTEROL 152 mg/dL; CREATININE 1.1 mg/dL (0.4-1.0); GFR - MDRD 47 (>89); GLUCOSE 70 mg/dL (70-100); HDL CHOLESTEROL 69 mg/dL; LDL CHOLESTEROL,CALCULATED 55 mg/dL; LDL/HDL RATIO 0.8 (<4.4); POTASSIUM 4.4 mmol/L (3.5-5.0); SODIUM 138 mmol/L (135-145); TOTAL PROTEIN 7.8 g/dL (6.7-8.2); TRIGLYCERIDES 142 mg/dL; VLDL CHOLESTEROL 28 mg/dL
[2022-09-10 18:06] LABS: THYROID STIMULATING HORMONE 4.99 uIU/mL (0.34-5.60)
[2022-09-10 21:29] LABS: ESTIMATED AVERAGE GLUCOSE 123 mg/dL (70-100); HEMOGLOBIN A1c% 5.9 % (4.27-6.07)
== END 2022-09-10 15:36 | disposition home or self-care (01) ==
LOC: LAB.N 15:35
PROVIDERS: ATTEND Nurse Practitioner Family
DX: I10 Essential (primary) hypertension (principal); E78.5 Hyperlipidemia, unspecified; E66.9 Obesity, unspecified; E03.9 Hypothyroidism, unspecified
CPT/HCPCS: 36415; 80053; 80061; 83036; 83721; 84443; 85025

== ENCOUNTER 2022-09-27 14:55 | Outpatient (CLI) | payer MEDICARE, OTHER | END 2022-09-27 14:56 | disposition home or self-care (01) | LOC: DI 14:55 | PROVIDERS: ATTEND Nurse Practitioner Family | DX: I08.0 Rheumatic disorders of both mitral and aortic valves (principal) | CPT/HCPCS: 93306 ==

== ENCOUNTER 2023-08-06 08:21 | Outpatient (CLI) | payer MEDICARE, OTHER ==
[2023-08-06 12:43] LABS: BASOPHILS % (AUTO) 0.9 %; EOSINOPHILS # (AUTO) 0.5 10^3/uL (0.0-0.7); EOSINOPHILS % (AUTO) 10.1 %; HCT - HEMATOCRIT 37.2 % (37.0-47.0); HGB - HEMOGLOBIN 11.8 g/dL (12.0-16.0); LYMPHOCYTES # (AUTO) 0.8 10^3/uL (1.5-3.5); LYMPHOCYTES % (AUTO) 18.4 %; MEAN CORPUSCULAR HGB CONC 31.7 g/dL (32.0-36.0); MEAN CORPUSCULAR VOLUME 91.4 fL (81.0-99.0); MEAN PLATELET VOLUME 10.9 fL (7.9-10.8); MONOCYTES # (AUTO) 0.5 10^3/uL (0.0-1.0); MONOCYTES % (AUTO) 10.3 %; NEUTROPHILS # (AUTO) 2.7 10^3/uL (1.5-6.6); NEUTROPHILS % (AUTO) 60.1 %; PLT - PLATELET COUNT 183 10^3/uL (130-450); RED BLOOD COUNT 4.07 10^6/uL (4.20-5.40); RED CELL DISTRIBUTION WIDTH 13.6 % (12.0-15.0); WHITE BLOOD COUNT 4.5 x10^3/uL (4.8-10.8)
[2023-08-06 13:17] LABS: ESTIMATED AVERAGE GLUCOSE 120 mg/dL (70-100); HEMOGLOBIN A1c% 5.8 % (4.27-6.07)
[2023-08-06 13:18] LABS: ALBUMIN 4.2 g/dL (3.2-5.5); ALBUMIN/GLOBULIN RATIO 1.4 (1.0-2.2); BILIRUBIN,TOTAL 0.4 mg/dL (0.2-1.0); CALCIUM 9.2 mg/dL (8.5-10.3); CREATININE 1.3 mg/dL (0.6-1.3); POTASSIUM 4.2 mmol/L (3.5-4.5); TOTAL PROTEIN 7.1 g/dL (6.4-8.9)
[2023-08-06 13:19] LABS: THYROID STIMULATING HORMONE 10.28 uIU/mL (0.34-5.60)
[2023-08-06 13:25] LABS: FERRITIN 36.9 ng/mL (11.0-306.8)
[2023-08-06 15:37] LABS: FECAL OCCULT BLOOD (FIT) POSITIVE (NEGATIVE)
== END 2023-08-06 08:22 | disposition home or self-care (01) ==
LOC: LAB.N 08:21
PROVIDERS: ATTEND Family Medicine
DX: I10 Essential (primary) hypertension (principal); M79.89 Other specified soft tissue disorders; R06.09 Other forms of dyspnea; I35.0 Nonrheumatic aortic (valve) stenosis; Z12.11 Encounter for screening for malignant neoplasm of colon
CPT/HCPCS: 36415; 80053; 82274; 82728; 83036; 83880; 84439; 84443; 85025

== ENCOUNTER 2023-08-28 11:06 | Outpatient (CLI) | payer MEDICARE, OTHER ==
[2023-08-28 18:12] LABS: CALCIUM 9.2 mg/dL (8.5-10.3); CREATININE 1.5 mg/dL (0.6-1.3); POTASSIUM 4.6 mmol/L (3.5-4.5)
== END 2023-08-28 11:07 | disposition home or self-care (01) ==
LOC: LAB.N 11:06
PROVIDERS: ATTEND Family Medicine
DX: M79.89 Other specified soft tissue disorders (principal)
CPT/HCPCS: 36415; 80048

== ENCOUNTER 2023-09-24 15:28 | Outpatient (CLI) | payer MEDICARE, OTHER ==
--- NOTE | 2023-09-24 18:02 | DEXA Report ---
PROCEDURE: Dexa Spine and/or Hip INDICATIONS: POST MENOPAUSAL TECHNIQUE: Dual energy x-ray absorptiometry (DEXA) was performed in the regions detailed below. COMPARISON: 09/03/2016 FINDINGS: Lumbar Spine: Bone Mineral Density 1.043 g/cm/cm,T score -1.1. Previously -1.5 Left Femoral Neck: Bone Mineral Density 0.616 g/cm/cm, T score -3.0. Previously -2.0 Left Total Hip: Bone Mineral Density 0.768 g/cm/cm,T score -1.9. Previously -1.7 (T score greater or equal to -1.0: NORMAL) (T score from -1.1 to -2.4: OSTEOPENIA) (T score less than or equal to -2.5 to: OSTEOPOROSIS) IMPRESSION: Worsening left femoral neck osteopenia Patients with diagnosis of osteoporosis or osteopenia should have regular bone mineral density assess ment. For those eligible for Medicare, routine testing is allowed once every 2 years. Testing frequ ency can be increased for patients who have rapidly progressing disease or for those who are receivin g medical therapy to restore bone mass. Reviewed by: Jamey Cochran MD on 09/24/2023 5:01 PM LAUREN Approved by: Jamey Cochran MD on 09/24/2023 5:01 PM [facility] Station ID: [id number]
== END 2023-09-24 15:29 | disposition home or self-care (01) ==
LOC: DI 15:28
PROVIDERS: ATTEND Family Medicine
DX: Z78.0 Asymptomatic menopausal state (principal); M81.0 Age-related osteoporosis without current pathological fracture

== ENCOUNTER 2023-10-29 15:17 | Outpatient (CLI) | payer MEDICARE, OTHER | END 2023-10-29 15:18 | disposition home or self-care (01) | LOC: DI 15:17 | PROVIDERS: ATTEND Family Medicine | DX: I35.0 Nonrheumatic aortic (valve) stenosis (principal) | CPT/HCPCS: 93306 ==

== ENCOUNTER 2023-11-21 09:29 | Outpatient (CLI) | payer MEDICARE, OTHER ==
[2023-11-21 13:36] LABS: THYROID STIMULATING HORMONE 3.38 uIU/mL (0.34-5.60)
== END 2023-11-21 09:30 | disposition home or self-care (01) ==
LOC: LAB.N 09:29
PROVIDERS: ATTEND Family Medicine
DX: E03.9 Hypothyroidism, unspecified (principal)
CPT/HCPCS: 36415; 84443

== ENCOUNTER 2024-03-27 15:17 | Outpatient (CLI) | payer MEDICARE, OTHER ==
[2024-03-27 18:01] LABS: BASOPHILS % (AUTO) 0.8 %; EOSINOPHILS # (AUTO) 0.4 10^3/uL (0.0-0.7); EOSINOPHILS % (AUTO) 8.4 %; HCT - HEMATOCRIT 36.4 % (37.0-47.0); LYMPHOCYTES # (AUTO) 1.2 10^3/uL (1.5-3.5); MEAN CORPUSCULAR HEMOGLOBIN 28.1 pg (27.0-31.0); MEAN CORPUSCULAR HGB CONC 30.2 g/dL (32.0-36.0); MEAN CORPUSCULAR VOLUME 92.9 fL (81.0-99.0); MEAN PLATELET VOLUME 10.3 fL (7.9-10.8); MONOCYTES # (AUTO) 0.5 10^3/uL (0.0-1.0); NEUTROPHILS # (AUTO) 2.9 10^3/uL (1.5-6.6); NEUTROPHILS % (AUTO) 57.6 %; PLT - PLATELET COUNT 204 10^3/uL (130-450); RED BLOOD COUNT 3.92 10^6/uL (4.20-5.40); RED CELL DISTRIBUTION WIDTH 13.6 % (12.0-15.0)
[2024-03-27 18:13] LABS: CALCIUM 9.7 mg/dL (8.5-10.3); CREATININE 1.3 mg/dL (0.6-1.3); POTASSIUM 4.8 mmol/L (3.5-4.5)
[2024-03-27 18:43] LABS: PT - PROTHROMBIN TIME 10.9 secs (9.9-12.6)
== END 2024-03-27 15:18 ==
LOC: LAB.N 15:17
PROVIDERS: ATTEND Internal Medicine Cardiovascular Disease
DX: I25.10 Atherosclerotic heart disease of native coronary artery without angina pectoris (principal); R06.09 Other forms of dyspnea
CPT/HCPCS: 36415; 80048; 85025; 85610

== ENCOUNTER 2024-06-16 16:22 | Outpatient (CLI) | payer MEDICARE, OTHER ==
[2024-06-16 21:07] LABS: BASOPHILS % (AUTO) 0.9 %; EOSINOPHILS # (AUTO) 0.3 10^3/uL (0.0-0.7); HCT - HEMATOCRIT 31.2 % (37.0-47.0); HGB - HEMOGLOBIN 9.5 g/dL (12.0-16.0); LYMPHOCYTES # (AUTO) 0.9 10^3/uL (1.5-3.5); LYMPHOCYTES % (AUTO) 19.8 %; MEAN CORPUSCULAR HEMOGLOBIN 29.1 pg (27.0-31.0); MEAN CORPUSCULAR HGB CONC 30.4 g/dL (32.0-36.0); MEAN CORPUSCULAR VOLUME 95.4 fL (81.0-99.0); MEAN PLATELET VOLUME 10.4 fL (7.9-10.8); MONOCYTES # (AUTO) 0.4 10^3/uL (0.0-1.0); MONOCYTES % (AUTO) 9.7 %; NEUTROPHILS # (AUTO) 2.8 10^3/uL (1.5-6.6); NEUTROPHILS % (AUTO) 62.4 %; PLT - PLATELET COUNT 224 10^3/uL (130-450); RED BLOOD COUNT 3.27 10^6/uL (4.20-5.40); RED CELL DISTRIBUTION WIDTH 15.4 % (12.0-15.0); WHITE BLOOD COUNT 4.5 x10^3/uL (4.8-10.8)
[2024-06-16 21:10] LABS: ALBUMIN 4.4 g/dL (3.2-5.5); ALBUMIN/GLOBULIN RATIO 1.6 (1.0-2.2); BILIRUBIN,TOTAL 0.3 mg/dL (0.2-1.0); CALCIUM 9.1 mg/dL (8.5-10.3); CREATININE 1.6 mg/dL (0.6-1.3); POTASSIUM 5.2 mmol/L (3.5-4.5); TOTAL PROTEIN 7.2 g/dL (6.4-8.9)
[2024-06-16 21:18] LABS: INR 0.9 (0.8-1.2); PT - PROTHROMBIN TIME 10.2 secs (9.9-12.6)
== END 2024-06-16 16:23 | disposition home or self-care (01) ==
LOC: LAB.N 16:22
PROVIDERS: ATTEND Nurse Practitioner
DX: I35.0 Nonrheumatic aortic (valve) stenosis (principal); R06.09 Other forms of dyspnea
CPT/HCPCS: 36415; 80053; 83880; 85025; 85610

== ENCOUNTER 2024-06-25 12:18 | Outpatient (CLI) | payer MEDICARE, OTHER ==
[2024-06-25 18:07] LABS: CALCIUM 9.1 mg/dL (8.5-10.3); CREATININE 1.9 mg/dL (0.6-1.3); POTASSIUM 4.8 mmol/L (3.5-4.5)
== END 2024-06-25 12:19 | disposition home or self-care (01) ==
LOC: LAB.N 12:18
DX: E87.5 Hyperkalemia (principal); I50.30 Unspecified diastolic (congestive) heart failure
CPT/HCPCS: 36415; 80048

== ENCOUNTER 2024-08-02 21:58 | Emergency (ER) | payer MEDICARE, OTHER ==
[2024-08-02 22:14] LABS: BASOPHILS % (AUTO) 0.6 %; EOSINOPHILS # (AUTO) 0.3 10^3/uL (0.0-0.7); EOSINOPHILS % (AUTO) 5.8 %; HCT - HEMATOCRIT 29.6 % (37.0-47.0); HGB - HEMOGLOBIN 9.2 g/dL (12.0-16.0); LYMPHOCYTES # (AUTO) 0.6 10^3/uL (1.5-3.5); LYMPHOCYTES % (AUTO) 12.8 %; MEAN CORPUSCULAR HEMOGLOBIN 28.7 pg (27.0-31.0); MEAN CORPUSCULAR HGB CONC 31.1 g/dL (32.0-36.0); MEAN CORPUSCULAR VOLUME 92.2 fL (81.0-99.0); MEAN PLATELET VOLUME 9.8 fL (7.9-10.8); MONOCYTES # (AUTO) 0.4 10^3/uL (0.0-1.0); MONOCYTES % (AUTO) 7.2 %; NEUTROPHILS # (AUTO) 3.6 10^3/uL (1.5-6.6); NEUTROPHILS % (AUTO) 73.2 %; PLT - PLATELET COUNT 155 10^3/uL (130-450); RED BLOOD COUNT 3.21 10^6/uL (4.20-5.40); RED CELL DISTRIBUTION WIDTH 14.4 % (12.0-15.0); WHITE BLOOD COUNT 4.9 x10^3/uL (4.8-10.8)
[2024-08-02 22:18] VITALS: BP 146/73; O2SAT 98
[2024-08-02 22:34] LABS: ALBUMIN 4.2 g/dL (3.2-5.5); ALBUMIN/GLOBULIN RATIO 1.3 (1.0-2.2); BILIRUBIN,TOTAL 0.3 mg/dL (0.2-1.0); CALCIUM 9.7 mg/dL (8.5-10.3); CREATININE 1.3 mg/dL (0.6-1.3); POTASSIUM 5.3 mmol/L (3.5-4.5); TOTAL PROTEIN 7.4 g/dL (6.4-8.9); TROPONIN I HIGH SENSITIVITY 6.5 ng/L (2.3-14.8)
[2024-08-02] MEDS: FUROSEMIDE 40 MG/4 ML VIAL IVP STA (22:47)
--- NOTE | 2024-08-02 22:58 | XRAY Report ---
PROCEDURE: Chest 1V INDICATIONS: dyspnea TECHNIQUE: One view of the chest was acquired. COMPARISON: 04/04/2021 FINDINGS: Surgical changes and devices: Aortic valve device Lungs and pleura: Low lung volumes. No dense airspace disease or pleural effusion Possible left midlung scarring again seen Mediastinum: Heart size is at the upper normal. Bones and chest wall: Degenerative changes IMPRESSION: Limited single view radiograph without acute abnormality. Low lung volumes. Possible mid lung scarrin g on the left again seen. Reviewed by: Hank Shirley MD on 08/02/2024 10:56 PM PDT Approved by: Hank Shirley MD on 08/02/2024 10:56 PM PDT Station ID: [id number]
--- NOTE | 2024-08-02 23:08 | ED Physician Documentation ---
History of Present Illness - Stated complaint Stated Complaint: POST OP PX/SOA - Chief complaint Chief Complaint: Ext Problem - History obtained from History obtained from: Patient, Family - Additonal information Additional information: The patient comes to the emergency department for chief complaint of shortness of breath. She states has been going on for about the past week, gradually worsening. She states that she has also been noticing that the swelling in her legs is increasing. She denies chest pain. No fevers or chills. No cough. The patient does smoke tobacco intermittently. She states that she had a TAVR on June 18 and that she has always been a little bit short of breath since then and had a little swelling. However, she did feel little bit better after the TAVR. However, he was taken off her Lasix and hydrochlorothiazide and has been on spironolactone only. She states that at first it seemed fine but now, she does not seem to be getting rid of the excess fluid like she was. She is scheduled for an echo in 5 days and has an appointment coming up with cardiology on September 29. She did see cardiology on June 29, 2011 days after her TAVR. PD PAST MEDICAL HISTORY - Past Medical History Past Medical History: Yes Cardiovascular: Hypertension, High cholesterol, Arrhythmia Respiratory: None Endocrine/Autoimmune: HyPOthyroidism GI: None : None HEENT: Chronic vision loss Psych: Anxiety Musculoskeletal: Osteoarthritis Derm: None - Past Surgical History Past Surgical History: Yes General: Colonoscopy Ortho: Hip replacement /[employer] PAPER: Other Cardiovascular: Valve replacement HEENT: Cataracts - Present Medications Home Medications: Ambulatory Orders Medication Instructions Recorded Confirmed Levothyroxine [Synthroid] 75 mcg PO DAILY 03/02/14 08/02/24 Metoprolol Succinate 25 mg PO DAILY 03/02/14 08/02/24 Nabb-3/Dha/Epa/Fish Oil [Fish Oil 1,200 mg PO DAILY 03/02/14 08/02/24 Dr 500 mg Softgel] Simvastatin 20 mg PO QPM 03/02/14 08/02/24 diphenhydrAMINE HCl [Benadryl] 12.5 mg PO BID 03/02/14 08/02/24 Cholecalciferol [Vitamin D3] 50 mcg PO DAILY 12/13/20 08/02/24 Losartan Potassium [Cozaar] 100 mg PO DAILY 12/13/20 08/02/24 Aspirin [Aspirin EC] 81 mg PO BID #30 mg 12/24/20 08/02/24 Alendronate Sodium See Rx Instructions .ROUTE .COMPLEX 08/02/24 08/02/24 Furosemide [Lasix] 20 mg PO DAILY #7 tablet 08/02/24 - Allergies Allergies/Adverse Reactions: Allergies Allergy/AdvReac Type Severity Reaction Status Date / Time lisinopril Allergy Unknown Verified 08/02/24 22:09 metoprolol Allergy Unknown Verified 08/02/24 22:09 - Social History Does the pt smoke?: No Smoking Status: Never smoker Does the pt drink ETOH?: No Does the pt have substance abuse?: No - Immunizations Immunizations are current?: Yes - POLST Patient has POLST: No PD ED PE NORMAL - Vitals Vital signs reviewed: Yes - General General: Alert and oriented X 3, No acute distress, Well developed/nourished - HEENT HEENT: Atraumatic, PERRL, EOMI, Moist mucous membranes - Neck Neck: Supple, no meningeal sign - Cardiac Cardiac: RRR, Other (1 out of 6 systolic murmur) - Respiratory Respiratory: No respiratory distress, Clear bilaterally - Abdomen Abdomen: Soft, Non tender, Non distended - Derm Derm: Normal color, Warm and dry, No rash - Extremities Extremities: No deformity, Other (2+ pitting edema bilateral lower extremities, from knees and distal) - Neuro Neuro: Alert and oriented X 3 - Psych Psych: Normal mood, Normal affect Results - Vitals Vitals: Vital Signs - 24 hr 08/02/24 08/02/24 22:06 23:27 Temperature 36.9 C 36.9 C Heart Rate 86 86 Respiratory 22 22 Rate Blood Pressure 146/73 H 146/73 H O2 Saturation 98 98 Oxygen O2 Source Room air - EKG (time done) 2202 EKG releavant findings:: EKG personally interpreted by author of this note. Relevant findings are: Rate: Rate (enter#) (72) Rhythm: NSR [place]: Normal Intervals: Other (Short MO) QRS: Low voltage (Precordial leads) Ischemia: Normal ST segments Compare to prior EKG: Old EKG unavailable Computer interpretation: Agree with computer - Labs Labs: Laboratory Tests 08/02/24 08/02/24 08/02/24 22:07 22:07 22:07 WBC 4.9 RBC 3.21 L Hgb 9.2 L Hct 29.6 L MCV 92.2 MCH 28.7 MCHC 31.1 L RDW 14.4 Plt Count 155 MPV 9.8 Neut # (Auto) 3.6 Lymph # (Auto) 0.6 L Callahan # (Auto) 0.4 Eos # (Auto) 0.3 Baso # (Auto) 0.0 Absolute Nucleated RBC 0.00 Nucleated RBC % 0.0 Sodium 138 Potassium 5.3 H Chloride 109 Carbon Dioxide 22 Anion Gap 7.0 BUN 21 H Creatinine 1.3 Estimated GFR (MDRD) 39 L Glucose 116 H Calcium 9.7 Total Bilirubin 0.3 AST 35 ALT 32 Alkaline Phosphatase 140 H Troponin I High Sens 6.5 B-Natriuretic Peptide 180 H Total Protein 7.4 Albumin 4.2 Globulin 3.2 Albumin/Globulin Ratio 1.3 Lipase 126 H - Rads (name of study) Chest x-ray Relevant Findings:: Final report received, See rad report (No acute findings. Cardiac size upper limits of normal.) PD Medical Decision Making - ED course Complexity details: reviewed results, re-evaluated patient, considered differential, d/w patient, d/w family ED course: The patient was worked up with laboratory studies which showed normal creatinine, mild elevation in BNP, and elevated potassium of 5.2. The chest x- ray surprisingly did not show much to explain the patient's dyspnea. Her troponin and EKG were unremarkable. I suspected that the patient's CHF and Moderate fluid overload without pulmonary edema are causing the patient's dyspnea. I discussed with patient and her granddaughter that given the patient's elevated potassium, I will not increase her home spironolactone but rather, we will readd 20 mg of Lasix daily for the next week. The patient has been given 80 mg of Lasix IV here and has begun to urinate. Her vital signs have looked quite good from the beginning of her stay and she has been able to transfer to and from the bedside commode without difficulty. I discussed with the granddaughter that they need to call the tenter first thing in the morning to ask if they can have a sooner appointment. We discussed the usual indications for follow-up and return. Departure - Departure Disposition: 01 Home, Self Care Clinical Impression: Fluid retention Dyspnea Qualifiers: Dyspnea type: unspecified Qualified Code(s): R06.00 - Dyspnea, unspecified Condition: Stable Instructions: ED CHF General Prescriptions: Furosemide [Lasix] 20 mg PO DAILY #7 tablet Comments: You have quite a bit of fluid in your legs, but your lungs do not look terrible, which is good. Also, your heart size is at the upper end of normal but is not enlarged. Your vital signs look very good here today. As far as your labs, your potassium is actually high and so instead of increasing the dose of your spironolactone, we will put you on a temporary course of Lasix/furosemide. This will be a small dose, but you can take it on top of the other water pill you are already on. You will be on it for 7 days and then should follow-up with your doctor to determine whether you should be on this for longer. This should help eliminate some of the excess fluid and improve your breathing. Please call your tenter office first thing tomorrow morning to try to set up a sooner appointment with them. Be sure to keep your appointment for your echocardiogram this coming Saturday. If you develop chest pain or severe shortness of breath, please return to the emergency department immediately. The prescription for your supplemental water pill has been electronically transmitted to the [facility] pharmacy in [place]. Please pick this up first thing in the morning and begin taking it then. Forms: PCP List Discharge Date/Time: 08/02/24 23:35
== END 2024-08-02 23:35 | disposition home or self-care (01) ==
LOC: ED 21:58
DX: R60.0 Localized edema (principal); R06.00 Dyspnea, unspecified; E87.5 Hyperkalemia; I11.0 Hypertensive heart disease with heart failure; I50.9 Heart failure, unspecified; E78.00 Pure hypercholesterolemia, unspecified; E03.9 Hypothyroidism, unspecified; Z79.899 Other long term (current) drug therapy; Z79.82 Long term (current) use of aspirin
CPT/HCPCS: 36415; 80053; 83690; 83880; 84484; 85025; 93005; 96374; 99284

== ENCOUNTER 2024-08-12 21:06 | Emergency (ER) | payer MEDICARE, OTHER ==
[2024-08-12 21:48] LABS: BASOPHILS % (AUTO) 0.4 %; EOSINOPHILS # (AUTO) 0.5 10^3/uL (0.0-0.7); EOSINOPHILS % (AUTO) 7.9 %; HCT - HEMATOCRIT 25.5 % (37.0-47.0); HGB - HEMOGLOBIN 8.2 g/dL (12.0-16.0); LYMPHOCYTES # (AUTO) 0.4 10^3/uL (1.5-3.5); LYMPHOCYTES % (AUTO) 5.1 %; MEAN CORPUSCULAR HEMOGLOBIN 29.5 pg (27.0-31.0); MEAN CORPUSCULAR HGB CONC 32.2 g/dL (32.0-36.0); MEAN CORPUSCULAR VOLUME 91.7 fL (81.0-99.0); MEAN PLATELET VOLUME 10.8 fL (7.9-10.8); MONOCYTES # (AUTO) 0.5 10^3/uL (0.0-1.0); MONOCYTES % (AUTO) 7.2 %; NEUTROPHILS # (AUTO) 5.4 10^3/uL (1.5-6.6); NRBC ABSOLUTE COUNT (AUTO) 0.02 x10^3/uL; NUCLEATED RED BLOOD CELLS AUTO 0.3 /100WBC; PLT - PLATELET COUNT 143 10^3/uL (130-450); RED BLOOD COUNT 2.78 10^6/uL (4.20-5.40); RED CELL DISTRIBUTION WIDTH 14.7 % (12.0-15.0); WHITE BLOOD COUNT 6.8 x10^3/uL (4.8-10.8)
[2024-08-12 21:55] LABS: ALBUMIN/GLOBULIN RATIO 1.6 (1.0-2.2); BILIRUBIN,TOTAL 0.4 mg/dL (0.2-1.0); CALCIUM 8.8 mg/dL (8.5-10.3); MAGNESIUM 2.1 mg/dL (1.7-2.3); POTASSIUM 5.1 mmol/L (3.5-4.5); TOTAL PROTEIN 6.5 g/dL (6.4-8.9)
--- NOTE | 2024-08-12 22:24 | XRAY Report ---
PROCEDURE: Chest 1V INDICATIONS: dyspnea TECHNIQUE: One view of the chest was acquired. COMPARISON: 08/02/2025 FINDINGS: Surgical changes and devices: None. Lungs and pleura: No pleural effusions or pneumothorax. Lungs are clear. Mediastinum: Mediastinal contours appear normal. Heart size is normal. Bones and chest wall: No suspicious bony lesions. Overlying soft tissues appear unremarkable. IMPRESSION: No acute cardiopulmonary process. Reviewed by: Stanley Betancourt MD on 08/12/2024 10:23 PM PDT Approved by: Stanley Betancourt MD on 08/12/2024 10:23 PM PDT Station ID: [id number]
--- NOTE | 2024-08-12 22:29 | ED Physician Documentation ---
History of Present Illness - Stated complaint Stated Complaint: SOA - Chief complaint Chief Complaint: Resp - History obtained from History obtained from: Patient, Family (daughter) - Additonal information Additional information: 88-year-old woman with history of anemia, recent TAVR in June of this year, presents with weakness and shortness of breath since her surgery, progressively worsening for the past few weeks. Patient has similar visit a couple weeks ago and was diagnosed with hyperkalemia. She does states she has been taking spironolactone since her surgery in addition to newly prescribed JULIA inhibitor which she had been on in the past but had paused prior to surgery. She does endorse decreased urination but denies dysuria or suprapubic pain. Denies fever, cough, chest pain. Denies significant leg swelling. She did have an echocardiogram this past week and says that the official results are not available but that she was told that it was normal. 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 Cardiovascular: Valve replacement HEENT: Cataracts - Present Medications Home Medications: Ambulatory Orders Medication Instructions Recorded Confirmed Levothyroxine [Synthroid] 75 mcg PO DAILY 03/02/14 08/02/24 Metoprolol Succinate 25 mg PO DAILY 03/02/14 08/02/24 [place]-3/Dha/Epa/Fish Oil [Fish Oil 1,200 mg PO DAILY 03/02/14 08/02/24 Dr 500 mg Softgel] Simvastatin 20 mg PO QPM 03/02/14 08/02/24 diphenhydrAMINE HCl [Benadryl] 12.5 mg PO BID 03/02/14 08/02/24 Cholecalciferol [Vitamin D3] 50 mcg PO DAILY 12/13/20 08/02/24 Losartan Potassium [Cozaar] 100 mg PO DAILY 12/13/20 08/02/24 Aspirin [Aspirin EC] 81 mg PO BID #30 mg 12/24/20 08/02/24 Alendronate Sodium See Rx Instructions .ROUTE .COMPLEX 08/02/24 08/02/24 Furosemide [Lasix] 20 mg PO DAILY #7 tablet 08/02/24 - Allergies Allergies/Adverse Reactions: Allergies Allergy/AdvReac Type Severity Reaction Status Date / Time lisinopril Allergy Unknown Verified 08/12/24 21:11 metoprolol Allergy Unknown Verified 08/12/24 21:11 - Social History Does the pt smoke?: No Smoking Status: Never smoker Does the pt drink ETOH?: No Does the pt have substance abuse?: No - Immunizations Immunizations are current?: Yes - POLST Patient has POLST: No PD ED PE NORMAL - Vitals Vital signs reviewed: Yes - General General: Alert and oriented X 3, No acute distress, Other (Elderly woman in no acute distress) - HEENT HEENT: Atraumatic, PERRL, EOMI, Moist mucous membranes, Pharynx benign - Neck Neck: Supple, no meningeal sign - Cardiac Cardiac: RRR - Respiratory Respiratory: No respiratory distress, Clear bilaterally - Abdomen Abdomen: Non tender, Non distended - Derm Derm: Normal color, Warm and dry - Extremities Extremities: No deformity - Neuro Neuro: No motor deficit, No sensory deficit - Psych Psych: Normal mood, Normal affect Results - Vitals Vitals: Vital Signs - 24 hr 08/12/24 08/12/24 21:11 21:57 Heart Rate 70 64 Respiratory 16 16 Rate Blood Pressure 124/64 133/78 H O2 Saturation 99 98 Oxygen O2 Source Room air - Labs Labs: Laboratory Tests 08/12/24 08/12/24 08/12/24 21:33 21:33 21:33 WBC 6.8 RBC 2.78 L Hgb 8.2 L Hct 25.5 L MCV 91.7 MCH 29.5 MCHC 32.2 RDW 14.7 Plt Count 143 MPV 10.8 Neut # (Auto) 5.4 Lymph # (Auto) 0.4 L [place] # (Auto) 0.5 Eos # (Auto) 0.5 Baso # (Auto) 0.0 Absolute Nucleated RBC 0.02 Nucleated RBC % 0.3 Sodium 136 Potassium 5.1 H Chloride 108 Carbon Dioxide 21 Anion Gap 7.0 BUN 52 H Creatinine 2.0 H Estimated GFR (MDRD) 24 L Glucose 116 H Calcium 8.8 Magnesium 2.1 Total Bilirubin 0.4 AST 90 H ALT 53 Alkaline Phosphatase 163 H B-Natriuretic Peptide 327 H Total Protein 6.5 Albumin 4.0 Globulin 2.5 Albumin/Globulin Ratio 1.6 PD Medical Decision Making - ED course ED course: 88-year-old woman with recent TAVR presents with multiple medical issues uncovered during her workup for weakness and shortness of breath. She does have some hyperkalemia with potassium of 5.1, stable from previous. Her creatinine is 2, increased from 1.3 on previous 08/02/2024. She also has anemia with hemoglobin 8.2, decreased from previous 9.2 on 08/02. Patient denies blood in the stool aside from small amount from her hemorrhoids. Upon review of her medications the patient was newly started on losartan and spironolactone after her TAVR. I am recommending that she pause these medications until she sees her doctor on Saturday since they may be contributing to her her LISA and hyperkalemia. Strict return precautions discussed and plan is for her to follow-up outpatient with her ncr operator.She also will benefit from nephrology and potentially gastroenterology depending on her anemia workup. Departure - Departure Disposition: 01 Home, Self Care Clinical Impression: LISA (acute kidney injury), Hyperkalemia, Anemia Condition: Stable Instructions: Anemia, Injury Acute Kidney Dc, Hyperkalemia Dc Follow-Up: RADHA GLEASON ARNP [Physician No Access] - SILAS MAYER MD [Physician No Access] - Comments: You were seen in the emergency department for medical evaluation and found to have multiple medical issues. 1. You have anemia that is getting worse. Your blood hemoglobin, a measure of anemia is 8.2 Today, which is decreased from August 02 at 9.2. This may be due to intestinal bleeding or another cause. Your doctor will need to investigate this further and you may need to see a civil litigation attorney. 2. Your kidney function is getting worse. Also your potassium is too high. Your creatinine today is 2 and normally it is 1.3 as of August 02. PLEASE DO NOT TAKE SPIRONOLACTONE OR LOSARTAN until you see your doctor on Saturday. You likely need to see a tyre finisher and examiner in clinic. Please follow-up with your BRIM STRETCHER and return to the emergency department if you have any new or worsening symptoms or other concerns. Forms: PCP List
[2024-08-12 23:08] VITALS: BP 133/72; O2SAT 96
== END 2024-08-12 23:01 | disposition home or self-care (01) ==
LOC: ED 21:06
DX: N17.9 Acute kidney failure, unspecified (principal); E87.5 Hyperkalemia; D64.9 Anemia, unspecified; Z79.899 Other long term (current) drug therapy
CPT/HCPCS: 36415; 80053; 83735; 83880; 85025; 99284

== ENCOUNTER 2024-11-17 14:52 | Inpatient (IN) ==
--- NOTE | 2024-11-17 15:33 | ED Physician Documentation ---
History of Present Illness Stated complaint Stated Complaint: CONFUSION, SLURRED SPEECH Chief complaint Chief Complaint: General History obtained from History obtained from: EMS Additonal information Additional information: This is a igor 88-year-old woman who had a TAVR in February of last year. And has had HFpEF since then. History of CAD status post EIMLY to the LAD, hemorrhoids, hypothyroidism. She may have some mild cognitive dementia but presents by private vehicle with the daughter for worsening fatigue and confusion over the last week or so. She did have a fall in there and presented to the walk-in clinic 2 days after [place]. It was unclear if she hit her head. Her examination at that time demonstrated a fairly normal neurologic exam so she was given return precautions but no cranial imaging. Since then she has become progressively confused. She is unable to work her phone, work the remote control, she is quite sleepy having gone to bed at about 7 PM last night when her usual is midnight or so. All the history is from the daughter because of confusion. There are no other specific complaints other than she was breathless going up and down the stairs a few days ago. No increased incontinence or urinary frequency. No fevers. Carlos Coma Scale Assess Eye opening: To Voice Verbal response: Oriented Motor response: Obeys Commands Total score: 14 Meds/Allgy Home Medications Ambulatory Orders Medication Instructions Recorded Confirmed Permanent Disabled Placard 08/26/24 11/04/24 levothyroxine 88 mcg tablet 88 mcg PO QDAY 08/26/24 11/04/24 atorvastatin 40 mg tablet (Lipitor) 40 mg PO QPM 08/27/24 11/04/24 polyethylene glycol 3350 17 gram 17 g PO QDAY PRN constipation #100 08/27/24 11/04/24 oral powder packet (Miralax) ea acetaminophen 325 mg tablet 325 mg PO Q6H PRN 10/05/24 11/04/24 aspirin 81 mg tablet,delayed 81 mg PO QDAY 10/05/24 11/04/24 release ferrous sulfate 325 mg (65 mg 325 mg PO QDAY 10/05/24 11/04/24 iron) tablet (FeroSul) miconazole nitrate 2 % topical 1 applic topical BID PRN 10/05/24 11/04/24 powder (Antifungal (miconazole)) mirtazapine 7.5 mg tablet 7.5 mg PO .QHS 10/05/24 11/04/24 pantoprazole 20 mg tablet,delayed 20 mg PO QDAY 10/05/24 11/04/24 release sennosides 8.6 mg tablet (senna) 17.2 mg PO BID PRN 10/05/24 11/04/24 furosemide 40 mg tablet 20 mg PO QDAY PRN 11/04/24 11/04/24 spironolactone 25 mg tablet 25 mg PO QDAY #90 tabs 11/17/24 Allergies Allergies Allergy/AdvReac Type Severity Reaction Status Date / Time lisinopril Allergy Cough Verified 11/17/24 15:18 metoprolol Allergy Unknown Verified 11/17/24 15:18 [facility] Medical History Medical History Occult blood detected in feces by immunoassay (08/14/23) Dehydration (09/01/20) 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) Tobacco user (02/26/11) Localized swelling of both lower legs (07/25/23) Shingles (07/15/18) Pedal edema (01/04/21) Nondisplaced fracture of medial malleolus of left tibia, subsequent encounter for closed fracture with routine healing (02/04/19) Nondisplaced fracture of medial malleolus of left tibia, initial encounter for closed fracture (01/26/19) Encounter for long-term (current) use of other medications (09/05/17) Kidney cyst, acquired (10/07/19) Hip pain, right (09/11/19) Hip pain, right (02/02/21) Former smoker (07/25/23) Allergic reaction (04/19/11) Surgical History Surgical History History of total right hip arthroplasty (02/02/21) Social History Social History Smoking Status: Former smoker If you are a former smoker, when did you quit? (Date/Year): June 2020 How many cigarettes a day do you smoke? (20 cigarettes=1 Pk): 10 Second hand tobacco smoke exposure: No Relationship: Child Home Mobility Equipment: Walker Do you feel safe in your home environment?: Yes Suffered physical, verbal, emotional, or financial abuse?: No History of Abuse: No ETOH Use: None Substance Use: denies use POLST Patient has POLST: No Exam Constitutional normal general appearance and no apparent distress She is quite sleepy but easily arousable but then falls back to sleep quickly. She is technically alert and oriented x 3 but a poor historian due to short-term memory difficulty otherwise. HENMT oropharynx normal Eyes Very small pupils bilaterally Respiratory breath sounds equal bilaterally, normal respiratory effort and clear to auscultation bilaterally Cardiovascular normal heart rate noted and regular rhythm noted Gastrointestinal abdomen soft to palpation, nontender to palpation and nontender to percussion Neurology GCS calculation - Eye opening: To Voice Verbal response: Oriented Motor response: Obeys Commands Carlos Coma Scale total score: 14 Results Vitals Vitals: Vital Signs - 24 hr 11/17/24 14:59 11/17/24 15:46 Temperature 36.1 C L Temperature Source Skin Pulse Rate 71 75 Respiratory Rate 16 20 Blood Pressure 129/89 138/71 H O2 Saturation 97 98 O2 Source Room air Room air Pain Intensity 0 0 Oxygen O2 Source Room air EKG (time done) 1701: EKG releavant findings:: EKG personally interpreted by author of this note. Relevant findings are: Normal sinus rhythm with supraventricular bigeminy. No findings of hyperkalemia which was specifically what I was looking for, i.e. no wide QRS, long QTc or significantly peaked T waves. Note made that the computer reads it as 2-1 AV block. With a rate of 37. I disagree, the rate is double that with bigeminy. Labs Labs: Laboratory Tests 11/17/24 11/17/24 15:40 15:50 WBC 4.4 L RBC 3.69 L Hgb 10.6 L Hct 34.2 L MCV 92.7 MCH 28.7 MCHC 31.0 L RDW 17.5 H Plt Count 54 L MPV 13.0 H Neut # (Auto) 3.5 Lymph # (Auto) 0.4 L [place] # (Auto) 0.4 Eos # (Auto) 0.1 Baso # (Auto) 0.0 Absolute Nucleated RBC 0.03 Nucleated RBC % 0.7 VBG pH 7.308 L VBG pCO2 43.5 VBG pO2 43.6 VBG HCO3 21.3 L VBG Total CO2 22.6 L VBG O2 Saturation 76.0 VBG Base Excess -4.8 L Sodium 138 Potassium 6.5 H* Chloride 107 Carbon Dioxide 24 Anion Gap 7.0 BUN 42 H Creatinine 1.9 H Estimated GFR (MDRD) 25 L Glucose 66 L Calcium 9.9 Total Bilirubin 0.6 AST 73 H ALT 54 Alkaline Phosphatase 305 H Ammonia 13.5 L Total Protein 7.1 Albumin 3.8 Globulin 3.3 Albumin/Globulin Ratio 1.2 Urine Color LT. YELLOW Urine Clarity CLEAR Urine pH 6.0 Ur Specific [place] 1.015 Urine Protein NEGATIVE Urine Glucose (UA) NEGATIVE Urine Ketones NEGATIVE Urine Occult Blood NEGATIVE Urine Nitrite NEGATIVE Urine Bilirubin NEGATIVE Urine Urobilinogen 0.2 (NORMAL) Ur Leukocyte Esterase NEGATIVE Ur Microscopic Review NOT INDICATED Urine Culture Comments NOT INDICATED Ethyl Alcohol < 10.0 PD Medical Decision Making ED course ED course: 88-year-old woman with the above medical history presents with the daughter for progressive encephalopathy over a week or 2 and there was a possible head injury. CT imaging of the head and neck were negative/normal. Otherwise workup demonstrates chronic anemia and lymphopenia, no CO2 retention on VBG, she does have mild LISA on CKD with moderate hyperkalemia which may be causing her encephalopathy, urinalysis was normal. She is on Aldactone and combined with her CKD that may be causing her hyperkalemia. Looking back she has had milder hyperkalemia for some time but today is the worst value and that may be causing her encephalopathy. I ordered IV fluids, Lokelma, Lasix, and calcium gluconate as well as an EKG. Discussed CODE STATUS with daughter and at this point she is full code. Spoke with our hospitalist colleague, Dr. Gonzalez for admission at 4:33 PM. Discharge Plan Discharge Patient Disposition: 66 [facility] DC/Xfer Condition: Serious Clinical Impression: Acute hyperkalemia, History of transcatheter aortic valve replacement (TAVR), Encephalopathy acute [id number] kidney injury Qualifiers: Acute renal failure type: unspecified Chronic kidney disease stage: stage 3 (moderate) Chronic kidney disease stage 3 subtype: unspecified whether 3a or 3b Qualified Code(s): N17.9 - Acute kidney failure, unspecified Prescriptions: No Action spironolactone 25 mg tablet 25 mg PO QDAY Qty: 90 0RF levothyroxine 88 mcg tablet 88 mcg PO QDAY Rx Instructions: Take 1 tablet by mouth once a day (DME) [facility] See Rx Instructions .Route Rx Instructions: As directed atorvastatin [Lipitor] 40 mg tablet 40 mg PO QPM polyethylene glycol 3350 [Miralax] 17 gram powder in packet 17 g PO QDAY PRN (Reason: constipation) Qty: 100 0RF pantoprazole 20 mg tablet,delayed release (DR/EC) 20 mg PO QDAY acetaminophen 325 mg tablet 325 mg PO Q6H PRN Patient Comments: Updated at [facility] 09/30/24 miconazole nitrate [Antifungal (miconazole)] 2 % powder 1 applic topical BID PRN Patient Comments: Updated at [facility] 09/30/24 Rx Instructions: Apply to groin as needed mirtazapine 7.5 mg tablet 7.5 mg PO .QHS sennosides [senna] 8.6 mg tablet 17.2 mg PO BID PRN Patient Comments: Updated at [facility] 09/30/24 aspirin 81 mg tablet,delayed release (DR/EC) 81 mg PO QDAY Patient Comments: Updated at [facility] 09/30/24 ferrous sulfate [FeroSul] 325 mg (65 mg iron) tablet 325 mg PO QDAY Patient Comments: take 1 tablet by mouth once daily with MEATY MEAL AT DINNER TIME ... (REFER TO PRESCRIPTION NOTES). furosemide 40 mg tablet 20 mg PO QDAY PRN Patient Comments: Updated at [facility] 09/30/24 Rx Instructions: If weight increases above 3 lbs in 2 days, take. Print Language: Cambodian
[2024-11-17 15:45] LABS: VBG BASE EXCESS -4.8 mmol/L (-2 - +2); VBG HCO3 21.3 mmol/L (23-28); VBG PCO2 43.5 mmHg (41-51); VBG PH 7.308 (7.31-7.41); VBG PO2 43.6 mmHg (25-47); VBG TOTAL CO2 22.6 mmol/L (24-29)
[2024-11-17 15:47] LABS: BASOPHILS % (AUTO) 0.2 %; EOSINOPHILS # (AUTO) 0.1 10^3/uL (0.0-0.7); HCT - HEMATOCRIT 34.2 % (37.0-47.0); HGB - HEMOGLOBIN 10.6 g/dL (12.0-16.0); LYMPHOCYTES # (AUTO) 0.4 10^3/uL (1.5-3.5); LYMPHOCYTES % (AUTO) 9.7 %; MEAN CORPUSCULAR HEMOGLOBIN 28.7 pg (27.0-31.0); MEAN CORPUSCULAR VOLUME 92.7 fL (81.0-99.0); MONOCYTES # (AUTO) 0.4 10^3/uL (0.0-1.0); MONOCYTES % (AUTO) 7.9 %; NEUTROPHILS # (AUTO) 3.5 10^3/uL (1.5-6.6); NEUTROPHILS % (AUTO) 79.7 %; NRBC ABSOLUTE COUNT (AUTO) 0.03 x10^3/uL; NUCLEATED RED BLOOD CELLS AUTO 0.7 /100WBC; PLT - PLATELET COUNT 54 10^3/uL (130-450); RED BLOOD COUNT 3.69 10^6/uL (4.20-5.40); RED CELL DISTRIBUTION WIDTH 17.5 % (12.0-15.0); WHITE BLOOD COUNT 4.4 x10^3/uL (4.8-10.8)
[2024-11-17 16:00] LABS: BILIRUBIN,URINE NEGATIVE (NEGATIVE); GLUCOSE, URINE (UA) NEGATIVE (NEGATIVE); KETONES,URINE (UA) NEGATIVE (NEGATIVE); LEUKOCYTE ESTERASE, URINE NEGATIVE (NEGATIVE); NITRITE,URINE NEGATIVE (NEGATIVE); OCCULT BLOOD,URINE NEGATIVE (NEGATIVE); PROTEIN,URINE NEGATIVE (NEGATIVE); UROBILINOGEN,URINE 0.2 (NORMAL) E.U./dL (NORMAL)
[2024-11-17 16:01] LABS: CLARITY,URINE CLEAR (CLEAR)
[2024-11-17 16:09] LABS: ETOH - ETHANOL < 10.0 mg/dL
--- NOTE | 2024-11-17 16:09 | CT Report ---
PROCEDURE: CT Head WO INDICATIONS: ams, poss head inj TECHNIQUE: Noncontrast 4.5 mm thick angled axial sections acquired from the foramen magnum to the vertex. For r adiation dose reduction, the following was used: automated exposure control, adjustment of mA and/or kV according to patient size. COMPARISON: None. FINDINGS: Image quality: Excellent. CSF spaces: Basal cisterns are patent. No extra-axial fluid collections. Ventricles are normal in size and shape. Brain: No midline shift. No intracranial masses or hemorrhage. Jaramillo-white matter interface is norm al. Intracranial carotid calcifications. Age-related volume loss and small vessel ischemic change. Skull and face: Calvarium and visualized facial bones are intact, without suspicious lesions. Sinuses: Visualized sinuses and mastoids are clear. IMPRESSION: No acute intracranial pathology. Comment: If clinically suspect acute stroke, recommend brain MRI. Reviewed by: Yuri Barnhart MD on 11/17/2024 4:08 PM PST Approved by: Yuri Barnhart MD on 11/17/2024 4:08 PM PST Station ID: [id number]
--- NOTE | 2024-11-17 16:13 | CT Report ---
PROCEDURE: CT Cervical Spine WO INDICATIONS: poss head inj TECHNIQUE: Noncontrast 3 mm thick sections acquired from the skull base to the T4 level. Sagittal and coronal r eformats were then constructed. For radiation dose reduction, the following was used: automated exp osure control, adjustment of mA and/or kV according to patient size. COMPARISON: None. FINDINGS: Image quality: Excellent. Bones: No fractures or dislocations. Visualized superior ribs are intact. Extensive cervical spond ylitic change. The C2-C4 vertebral bodies are fused, potentially congenitally, with fusion of the fac ets as well. There is prominent pain as at C1-C2 resulting in moderate canal stenosis at this level. There is trace anterolisthesis of C4 on C5 and retrolisthesis of C5 on C6. There is severe canal sten osis at C5-C6. There is multilevel significant bony foraminal narrowing, most notably at C4-C5 and C5 -C6. Soft tissues: Biapical emphysematous change. Prevertebral soft tissues are normal in thickness. No paravertebral hematomas. No apical pneumothoraces. IMPRESSION: No acute cervical fracture or dislocation. 2. 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 3. Advanced cervical spondylosis. 4. Findings include moderate canal stenosis secondary to pannus at C1-C2, as well as severe canal kaycee nosis at C5-C6. There is also multilevel bony foraminal narrowing. 5. Biapical emphysematous change. Reviewed by: Yuri Barnhart MD on 11/17/2024 4:11 PM PST Approved by: Yuri Barnhart MD on 11/17/2024 4:11 PM PST Station ID: [id number]
[2024-11-17 16:18] LABS: ALBUMIN 3.8 g/dL (3.2-5.5); ALBUMIN/GLOBULIN RATIO 1.2 (1.0-2.2); ALKALINE PHOSPHATASE 305 IU/L (42-121); ALT ALANINE AMINOTRANSFERASE 54 IU/L (10-60); AST ASPARTATE AMINOTRANSFERASE 73 IU/L (10-42); BILIRUBIN,TOTAL 0.6 mg/dL (0.2-1.0); BUN - BLOOD UREA NITROGEN 42 mg/dL (6-20); CALCIUM 9.9 mg/dL (8.5-10.3); CARBON DIOXIDE - CO2 24 mmol/L (21-32); CHLORIDE 107 mmol/L (101-111); CREATININE 1.9 mg/dL (0.6-1.3); GFR - MDRD 25 (>89); GLUCOSE 66 mg/dL (74-104); POTASSIUM 6.5 mmol/L (3.5-4.5); SODIUM 138 mmol/L (135-145); TOTAL PROTEIN 7.1 g/dL (6.4-8.9)
[2024-11-17] MEDS: CALCIUM GLUC 1,000MG/50ML-NACL 1,000 MG/50 ML BAG IV STA (16:47)
[2024-11-17] MEDS: FUROSEMIDE 40 MG/4 ML VIAL IVP STA (16:48)
[2024-11-17] MEDS: SODIUM ZIRCONIUM CYCLOSILICATE 5 GM PACKET PO ONE ×2 (16:48→21:49)
[2024-11-17] MEDS: SODIUM CHLORIDE 0.9% 1,000 ML IV STA (16:48)
--- NOTE | 2024-11-17 17:02 | HISTORY & PHYSICAL EXAMINATION ---
Chief Complaint Chief Complaint Chief Complaint: Fatigue, altered mentation History of Present Illness Admitted From Admitted From:: Home History Obtained From Records Reviewed: Yes History obtained from: Patient and patient's daughterMayda Exam Limitations: Altered mentation History of Present Illness HPI Comment/Other: Patient is a 88-year-old female with a history of heart failure with reduced ejection fraction, recent GI bleed, aortic stenosis s/p TAVR who presented after being found to be altered from baseline mental status. Her daughter, Mayda, is at bedside, and provides most of the history. Per patient's daughter, she has been feeling more weak for the past 1 week. She is having trouble staying awake. She is taking longer to go up the stairs. She is having more falls. She is more unsteady on her feet. When patient spoken with, she is alert and oriented x 4, but she is going in and out of sleep. She denies any fevers, chills. She has not missed any doses of her Lasix; her daughter does help with her medications. Her daughter did state that she noticed that her lower extremities are warm and more swollen. She is not sure how much urine she is making. She usually wears depends diapers, so it is hard to quantify. She has been eating and drinking the same amount. In the ED, she was vitally stable, blood pressure 130/71, saturating 98% on room air, the heart rate of 75. Her heart rate was irregularly irregular, and she is a known history of atrial fibrillation. Due to her recent falls, head CT and cervical spine CT were done which showed no acute abnormalities. Her cervical CT did show advanced cervical spondylosis, as well as moderate canal stenosis at C1, C2, C5-C6. Lab work was done which showed creatinine of 1.9, little above baseline. Her potassium was elevated at 6.5. EKG is pending. Meds/Allgy Home Medications Ambulatory Orders Medication Instructions Recorded Confirmed Permanent Disabled Placard 08/26/24 11/04/24 levothyroxine 88 mcg tablet 88 mcg PO QDAY 08/26/24 11/04/24 atorvastatin 40 mg tablet (Lipitor) 40 mg PO QPM 08/27/24 11/04/24 polyethylene glycol 3350 17 gram 17 g PO QDAY PRN constipation #100 08/27/24 11/04/24 oral powder packet (Miralax) ea acetaminophen 325 mg tablet 325 mg PO Q6H PRN 10/05/24 11/04/24 aspirin 81 mg tablet,delayed 81 mg PO QDAY 10/05/24 11/04/24 release ferrous sulfate 325 mg (65 mg 325 mg PO QDAY 10/05/24 11/04/24 iron) tablet (FeroSul) miconazole nitrate 2 % topical 1 applic topical BID PRN 10/05/24 11/04/24 powder (Antifungal (miconazole)) mirtazapine 7.5 mg tablet 7.5 mg PO .QHS 10/05/24 11/04/24 pantoprazole 20 mg tablet,delayed 20 mg PO QDAY 10/05/24 11/04/24 release sennosides 8.6 mg tablet (senna) 17.2 mg PO BID PRN 10/05/24 11/04/24 furosemide 40 mg tablet 20 mg PO QDAY PRN 11/04/24 11/04/24 spironolactone 25 mg tablet 25 mg PO QDAY #90 tabs 11/17/24 Allergies Allergies Allergy/AdvReac Type Severity Reaction Status Date / Time lisinopril Allergy Cough Verified 11/17/24 15:18 metoprolol Allergy Unknown Verified 11/17/24 15:18 [facility] Medical History Medical History Occult blood detected in feces by immunoassay (08/14/23) Dehydration (09/01/20) 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) Tobacco user (02/26/11) Localized swelling of both lower legs (07/25/23) Shingles (07/15/18) Pedal edema (01/04/21) Nondisplaced fracture of medial malleolus of left tibia, subsequent encounter for closed fracture with routine healing (02/04/19) Nondisplaced fracture of medial malleolus of left tibia, initial encounter for closed fracture (01/26/19) Encounter for long-term (current) use of other medications (09/05/17) Kidney cyst, acquired (10/07/19) Hip pain, right (09/11/19) Hip pain, right (02/02/21) Former smoker (07/25/23) Allergic reaction (04/19/11) Surgical History Surgical History History of total right hip arthroplasty (02/02/21) Social History Social History Smoking Status: Former smoker If you are a former smoker, when did you quit? (Date/Year): June 2020 How many cigarettes a day do you smoke? (20 cigarettes=1 Pk): 10 Second hand tobacco smoke exposure: No Relationship: Child Home Mobility Equipment: Walker Do you feel safe in your home environment?: Yes Suffered physical, verbal, emotional, or financial abuse?: No History of Abuse: No ETOH Use: None Substance Use: denies use POLST Patient has POLST: No POLST Status: Full Code Review of Systems Constitutional Reports: Fatigue, Malaise, Weakness and Change in sleep pattern; Denies: Fever, Chills, Diaphoresis or Night sweats Eyes Denies: Pain, Irritation, Blurry vision or Floaters Ears, nose, mouth, and throat Denies: Ear pain, Ear discharge, Hearing loss, Hearing aids or Neck pain Cardiovascular Reports: edema and swelling of feet/ankles; Denies: Irregular heart rate, chest pain, palpitations or shortness of breath with exertion Respiratory Denies: Shortness of breath, Cough, Sputum production, Change in phlegm color or Wheezing Gastrointestinal Denies: Abdominal pain, Nausea, Vomiting, Poor appetite or Bile emesis Genitourinary Denies: Painful urination, Urinary frequency, Urinary urgency, Nocturia, Urinary incontinence or Blood in urine Musculoskeletal Denies: Back pain, Neck pain, Extremity pain or Extremity swelling Integumentary/Breast Denies: Rash, Itching, Dryness, Skin swelling, Sores or New lesion Neurological Denies: Headache, General weakness, Focal weakness, Weakness in extremities or Numbness in extremities Psychiatric Denies: Depression, Anxiety, Mood swings, Panic attacks or Change in sleep pattern Endocrine Reports: Fatigue; Denies: Excessive urination, Excessive thirst or Polyphagia Hematologic/Lymphatic Reports: Anemia; Denies: Easy bruising or Petechiae Allergic/Immunologic Denies: Wheezing Prior Level of Functionality: Lived at home. Had once a week nursing, PT, OT. Daughter helps with ADLs. Exam Constitutional normal general appearance, no apparent distress and no limitations HENMT normocephalic, head/scalp atraumatic and hearing grossly normal bilaterally Eyes PERRL, EOMs intact bilaterally and conjunctivae normal bilateral cataracts noted Neck/C-Spine trachea midline and thyroid normal Lymph no lymphedema noted Chest inspection of chest normal Respiratory breath sounds equal bilaterally, normal respiratory effort, clear to auscultation bilaterally, no wheezes and no rales Cardiovascular normal heart rate noted, rhythm abnormal (irregular), murmur noted (systolic) and no JVD Gastrointestinal abdomen soft to palpation, nontender to palpation, nondistended and no hepatosplenomegaly Genitourinary no CVA tenderness Extremities normal to inspection and full ROM (5/5 strength in all extremities, no focal neurological deficits noted) Neurology no movement abnormality noted, no focal motor deficit noted and speech normal Psychiatry oriented x3 and thought process normal patient does go in and out of sleep Skin skin color normal, no rash and no lesions Conclusion/Plan Problem List (1) Encephalopathy acute: Plan: Patient presents with worsening mentation; although she is alert and oriented x 4, she is drifting in and out of sleep. CT head, CT cervical spine without any acute abnormalities. No focal neurological deficits. Will consider brain MRI if patient's mentation does not improve. TSH done 10/11 was within normal limits. Repeat ordered, pending. Alcohol level was negative. Drug screen ordered, pending. At this point, we will likely attributed to uremia. Patient received 1 dose of IV Lasix. Will hold at this time. Also received IV fluids. Continue to trend. (2) Lamjd-af-hlwivpe kidney injury: Plan: Patient's creatinine is mildly elevated from baseline. Continue to trend. Continue to avoid nephrotoxic agents. Bladder scan ordered to assess for retention, pending. Received IV fluids and Lasix in the ED. Per daughter, eating less and drinking less at home. Continue to trend. Qualifiers: Acute renal failure type: unspecified Chronic kidney disease stage: s tage 3 (moderate) Chronic kidney disease stage 3 subtype: unspecified whether 3a or 3b Qualified Code(s): N17.9 - Acute kidney failure, unspecified; N18.30 - Chronic kidney disease, stage 3 unspecified (3) Acute hyperkalemia: Plan: Patient with elevated potassium likely due to acute kidney injury. Received IV fluids. Continue to trend - repeat potassium ordered for 7 PM. If remains elevated - will repeat EKG, give another dose of Lokelma, give another dose of calcium gluconate. (4) Chronic kidney disease, stage 3b: Plan: See above. (5) Heart failure with reduced ejection fraction: Plan: Continue Lasix. Continue to hold spironolactone. (6) Aortic stenosis, severe: Plan: Replaced in 06/2024. Continue to monitor. Lab Results Lab results reviewed: Yes 11/17/24 15:40 11/17/24 15:40 Diagnostic Imaging Results Diagnostic Imaging Results: positive Final report reviewed EKG Results EKG Findings: Awaiting completion. Core Measures Anticipated LOS I expect patient to be DC'd or transferred within 96 hours.: Yes DVT/VTE - Prophylaxis VTE/DVT Device ordered at admit?: Yes VTE/DVT Prophylaxis med ordered at admit?: No Not Ordered - Medical Reason: Contraindicated Stroke - Rehab Assessment Rehab services assessment to be ordered?: No Not Ordered - Medical Reason: Not indicated AMI - Statin at Admit Aspirin Prescribed on Admit: Yes
[2024-11-17] MEDS ORDERED: ACETAMINOPHEN 325 MG TABLET PO PRN (18:19)
[2024-11-17] MEDS: SODIUM ZIRCONIUM CYCLOSILICATE 5 GM PACKET PO PRN (19:19)
[2024-11-17] MEDS: CALCIUM GLUC 1,000MG/50ML-NACL 1,000 MG/50 ML BAG IV PRN (19:27)
[2024-11-17] MEDS: SODIUM CHLORIDE FLUSH 0.9% 10 ML SYRINGE IVP SCH (19:34)
[2024-11-17] MEDS: MIRTAZAPINE 15 MG TABLET PO SCH (21:10)
[2024-11-17] MEDS: ATORVASTATIN 40 MG TABLET PO SCH (21:10)
--- NOTE | 2024-11-17 21:33 | PROVIDER PROGRESS NOTE ---
Retail Representative Note Retail Representative Note Retail Representative Note: per rn "Patient's Potassium is 5.9 down from 6.3 Patient has had 2 doses of lokelma 10mg and 2 doses of calcium gluconate 1gm." - repeat lokelma dose - repeat calcium gluconate dose - d50 x 1 - regular insulin 10 units now continue close monitoring
[2024-11-17] MEDS: DEXTROSE 50% ABBOJECT 25 GM/50 ML SYRINGE IVP ONE (21:52)
[2024-11-17] MEDS: CALCIUM GLUC 1,000MG/50ML-NACL 1,000 MG/50 ML BAG IV ONE (21:52)
[2024-11-17] MEDS: INSULIN REGULAR, HUMAN 300 UNIT/3 ML PEN IVP ONE (23:57)
[2024-11-18 04:00] LABS: ALBUMIN 3.5 g/dL (3.2-5.5); ALBUMIN/GLOBULIN RATIO 1.2 (1.0-2.2); BILIRUBIN,TOTAL 0.5 mg/dL (0.2-1.0); CALCIUM 10.4 mg/dL (8.5-10.3); CREATININE 1.9 mg/dL (0.6-1.3); POTASSIUM 4.5 mmol/L (3.5-4.5); TOTAL PROTEIN 6.5 g/dL (6.4-8.9)
[2024-11-18] MEDS: DEXTROSE 50% ABBOJECT 25 GM/50 ML SYRINGE IVP ONE (04:08)
--- NOTE | 2024-11-18 05:14 | PROVIDER PROGRESS NOTE ---
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 Current BP-87/42. BG recheck result of 181. Pt. has no c/o of chest pain or shortness of breath. Pt. is a full code. Would you like an EKG done." most recent K 4.5 check mag now lr bolus 250 ml now ekg ordered
[2024-11-18] MEDS: SODIUM CHLORIDE FLUSH 0.9% 10 ML SYRINGE IVP PRN (05:43)
[2024-11-18] MEDS: SODIUM CHLORIDE 0.9% 250 ML IV ONE (05:43)
[2024-11-18 05:57] LABS: CALCIUM, IONIZED 1.24 mmol/L (1.15-1.33); VBG PH 7.323 (7.31-7.41)
[2024-11-18 05:59] LABS: BASOPHILS % (AUTO) 0.3 %; EOSINOPHILS # (AUTO) 0.1 10^3/uL (0.0-0.7); EOSINOPHILS % (AUTO) 1.7 %; HCT - HEMATOCRIT 33.3 % (37.0-47.0); HGB - HEMOGLOBIN 10.5 g/dL (12.0-16.0); LYMPHOCYTES # (AUTO) 0.2 10^3/uL (1.5-3.5); MEAN CORPUSCULAR HEMOGLOBIN 29.1 pg (27.0-31.0); MEAN CORPUSCULAR HGB CONC 31.5 g/dL (32.0-36.0); MEAN CORPUSCULAR VOLUME 92.2 fL (81.0-99.0); MEAN PLATELET VOLUME 11.9 fL (7.9-10.8); MONOCYTES # (AUTO) 0.3 10^3/uL (0.0-1.0); NEUTROPHILS # (AUTO) 2.9 10^3/uL (1.5-6.6); NEUTROPHILS % (AUTO) 83.7 %; NRBC ABSOLUTE COUNT (AUTO) 0.02 x10^3/uL; NUCLEATED RED BLOOD CELLS AUTO 0.6 /100WBC; PLT - PLATELET COUNT 47 10^3/uL (130-450); RED BLOOD COUNT 3.61 10^6/uL (4.20-5.40); RED CELL DISTRIBUTION WIDTH 17.2 % (12.0-15.0); WHITE BLOOD COUNT 3.5 x10^3/uL (4.8-10.8)
[2024-11-18 06:10] LABS: ALBUMIN 3.4 g/dL (3.2-5.5); ALBUMIN/GLOBULIN RATIO 1.1 (1.0-2.2); BILIRUBIN,TOTAL 0.5 mg/dL (0.2-1.0); CALCIUM 9.7 mg/dL (8.5-10.3); CREATININE 1.9 mg/dL (0.6-1.3); POTASSIUM 4.9 mmol/L (3.5-4.5); TOTAL PROTEIN 6.5 g/dL (6.4-8.9)
--- NOTE | 2024-11-18 06:10 | PROVIDER PROGRESS NOTE ---
Lidar Analyst Note Lidar Analyst Note Lidar Analyst Note: ekg reviewed, showing what appears as av block, type 2 no reported symptoms from patient magnesium pending continue monitoring
[2024-11-18] MEDS: LACTATED RINGERS 250 ML IV ONE (06:18)
[2024-11-18 06:32] LABS: MAGNESIUM 2.3 mg/dL (1.7-2.3); PHOSPHORUS 5.2 mg/dL (2.5-5.0)
[2024-11-18 06:42] LABS: THYROID STIMULATING HORMONE 0.07 uIU/mL (0.34-5.60)
[2024-11-18] MEDS ORDERED: LEVOTHYROXINE 88 MCG TABLET PO SCH (07:00)
[2024-11-18] MEDS: FERROUS SULFATE 325 MG TABLET PO SCH (08:49)
[2024-11-18] MEDS: SODIUM ZIRCONIUM CYCLOSILICATE 5 GM PACKET PO SCH (08:49)
[2024-11-18] MEDS: ASPIRIN EC 81 MG TABLET PO SCH (08:49)
--- NOTE | 2024-11-18 10:59 | PROVIDER PROGRESS NOTE ---
Subjective Subjective Subjective: Patient is more lethargic today. She is responsive to verbal stimuli. She is able to tell me her name. She appears a little bit more tired than yesterday. She denies any shortness of breath, chest pain, fevers, chills. Her daughter, Mayda, was spoken with. I told her that I spoke with the transfer center at [facility]. I am waiting to hear back from the performance improvement director about possible transfer. Her EKG overnight did show Mobitz type II block. She has been going in and out of sinus pauses, and heart rate as low as 26. She bounces back with heart rate in the 60s. However the episodes of bradycardia and sinus pauses are becoming more frequent. Additionally, her blood pressure has started to decrease as well. Her last one was 81/60, and when she came in it was 138/71. She is agreeable to transfer if accepted. Current Medications Current Medications Current Medications: Current Medications Generic Name Dose Route Start Last Admin Trade Name Freq PRN Reason Stop Dose Admin Acetaminophen 325 mg 11/17/24 18:19 Acetaminophen 325 Mg Tablet PO Q6H PRN Pain or Fever > 38C (100.4F) Aspirin 81 mg 11/18/24 09:00 11/18/24 08:49 Aspirin Ec 81 Mg Tablet PO 81 mg DAILY ASYA Administration Atorvastatin Calcium 40 mg 11/17/24 21:00 11/17/24 21:10 Atorvastatin 40 Mg Tablet PO 40 mg QPM ASYA Administration Ferrous Sulfate 325 mg 11/18/24 09:00 11/18/24 08:49 Ferrous Sulfate 325 Mg Tablet PO 325 mg DAILY ASYA Administration CALCIUM GLUC 1,000MG/50ML-NACL 1,000 mg in 50 mls @ 50 mls/hr 11/17/24 18:19 11/17/24 20:27 Calcium Gluc 1,000mg/50ml-Nacl IV Infused PRN PRN Infusion potassium greater than 6 Dopamine HCl/Dextrose 400 mg in 250 mls @ 4.463 mls/hr 11/18/24 11:00 Dopamine IV .[id number] ASYA Protocol 2 MCG/KG/MIN Sodium Chloride 1,000 mls @ 75 mls/hr 11/18/24 11:00 Normal Saline 0.9% IV .[id number] [facility] Mirtazapine 7.5 mg 11/17/24 21:00 11/17/24 21:10 Mirtazapine 15 Mg Tablet PO 7.5 mg HS ASYA Administration Sodium Chloride 10 ml 11/17/24 18:19 11/18/24 05:43 Sodium Chloride Flush 0.9% 10 Ml Syringe IVP 10 ml PRN PRN Administration NEEDED PER PROVIDER ORDERS Sodium Chloride 10 ml 11/17/24 18:19 11/18/24 08:49 Sodium Chloride Flush 0.9% 10 Ml Syringe IVP 10 ml 0100,0900,1700 ASYA Administration Sodium Zirconium Cyclosilicate 10 gm 11/18/24 09:00 11/18/24 08:49 Sodium Zirconium Cyclosilicate 5 Gm Packet PO 10 gm DAILY ASYA Administration Objective Vital Signs/Intake & Output Reviewed Vital Signs: Yes Vital Signs: Vital Signs x48h Temp Pulse Pulse Resp BP BP Pulse Ox 11/18/24 10:00 65 20 81/60 L 95 11/18/24 09:00 70 10 L 119/87 99 11/18/24 08:00 80 15 123/91 H 99 11/18/24 07:00 68 10 L 112/49 L 98 11/18/24 06:00 44 L 15 97/68 97 11/18/24 05:00 65 12 90/53 L 96 11/18/24 04:00 97.2 F L 63 17 100/49 L 98 11/18/24 03:00 69 14 109/52 L 96 Intake & Output: Intake & Output 11/15/24 11/16/24 11/17/24 11/18/24 23:59 23:59 23:59 23:59 Intake Total 1250 / 1250 250 / 250 Output Total 850 / 850 250 / 250 Balance 400 / 400 0 / 0 Weight (kg) 59.5 kg Objective General Appearance: positive No acute distress and Lethargic Eyes Bilateral: positive Normal inspection, PERRL and Other (bilateral cataracts noted) ENT: positive ENT inspection nml, Pharynx nml and No signs of dehydration Neck: positive Nml inspection, Thyroid nml and No JVD Respiratory: positive Chest non-tender, No respiratory distress and Breath sounds nml; negative Wheezes, Rales or Rhonchi Cardiovascular: positive Irregularly irregular and Bradycardia Abdomen: positive Non-tender; negative Tenderness, Guarding, Rebound, Hepatomegaly, Splenomegaly or Mass Back: positive Nml inspection; negative CVA tenderness (R) or CVA tenderness (L) Skin: positive Color nml and No rash Extremities: positive Non-tender, Full ROM, Nml appearance and No pedal edema Neurologic/Psychiatric: positive Mood/affect nml and Weakness; negative Disoriented to place or Disoriented to time Lab Results 11/18/24 05:20 11/18/24 05:20 Other Labs: Lab Results x24hrs 11/18/24 11/18/24 11/18/24 Range/Units 05:20 04:43 04:03 WBC 3.5 L (4.8-10.8) x10^3/uL RBC 3.61 L (4.20-5.40) 10^6/uL Hgb 10.5 L (12.0-16.0) g/dL Hct 33.3 L (37.0-47.0) % MCV 92.2 (81.0-99.0) fL MCH 29.1 (27.0-31.0) pg MCHC 31.5 L (32.0-36.0) g/dL RDW 17.2 H (12.0-15.0) % Plt Count 47 L (130-450) 10^3/uL MPV 11.9 H (7.9-10.8) fL Neut # (Auto) 2.9 (1.5-6.6) 10^3/uL Lymph # (Auto) 0.2 L (1.5-3.5) 10^3/uL [place] # (Auto) 0.3 (0.0-1.0) 10^3/uL Eos # (Auto) 0.1 (0.0-0.7) 10^3/uL Baso # (Auto) 0.0 (0.0-0.1) 10^3/uL Absolute Nucleated RBC 0.02 x10^3/uL Nucleated RBC % 0.6 /100WBC VBG pH 7.323 (7.31-7.41) VBG pCO2 (41-51) mmHg VBG pO2 (25-47) mmHg VBG HCO3 (23-28) mmol/L VBG Total CO2 (24-29) mmol/L VBG O2 Saturation (60-80) % VBG Base Excess (-2 - +2) mmol/L Ionized Calcium 1.24 (1.15-1.33) mmol/L Sodium 137 (135-145) mmol/L Potassium 4.9 H (3.5-4.5) mmol/L Chloride 106 (101-111) mmol/L Carbon Dioxide 24 (21-32) mmol/L Anion Gap 7.0 (6-13) BUN 40 H (6-20) mg/dL Creatinine 1.9 H (0.6-1.3) mg/dL Estimated GFR (MDRD) 25 L (>89) Glucose 146 H (74-104) mg/dL POC Whole Bld Glucose 181 41 (70-100) mg/dL Calcium 9.7 (8.5-10.3) mg/dL Phosphorus 5.2 H (2.5-5.0) mg/dL Magnesium 2.3 (1.7-2.3) mg/dL Total Bilirubin 0.5 (0.2-1.0) mg/dL AST 63 H (10-42) IU/L ALT 48 (10-60) IU/L Alkaline Phosphatase 272 H (42-121) IU/L Ammonia (18-72) umol/L Total Protein 6.5 (6.4-8.9) g/dL Albumin 3.4 (3.2-5.5) g/dL Globulin 3.1 (2.1-4.2) g/dL Albumin/Globulin Ratio 1.1 (1.0-2.2) TSH 0.07 L (0.34-5.60) uIU/mL Free T4 Direct 2.46 H (0.58-1.64) ng/dL Urine Color Urine Clarity (CLEAR) Urine pH (5.0-7.5) PH Ur Specific [place] (1.002-1.030) Urine Protein (NEGATIVE) mg/dL Urine Glucose (UA) (NEGATIVE) mg/dL Urine Ketones (NEGATIVE) mg/dL Urine Occult Blood (NEGATIVE) Urine Nitrite (NEGATIVE) Urine Bilirubin (NEGATIVE) Urine Urobilinogen (NORMAL) E.U./dL Ur Leukocyte Esterase (NEGATIVE) Ur Microscopic Review Urine Culture Comments Nasal Screen MRSA (PCR) (NEGATIVE) Ethyl Alcohol mg/dL 11/18/24 11/18/24 11/18/24 Range/Units 02:24 00:33 00:20 WBC (4.8-10.8) x10^3/uL RBC (4.20-5.40) 10^6/uL Hgb (12.0-16.0) g/dL Hct (37.0-47.0) % MCV (81.0-99.0) fL MCH (27.0-31.0) pg MCHC (32.0-36.0) g/dL RDW (12.0-15.0) % Plt Count (130-450) 10^3/uL MPV (7.9-10.8) fL Neut # (Auto) (1.5-6.6) 10^3/uL Lymph # (Auto) (1.5-3.5) 10^3/uL [place] # (Auto) (0.0-1.0) 10^3/uL Eos # (Auto) (0.0-0.7) 10^3/uL Baso # (Auto) (0.0-0.1) 10^3/uL Absolute Nucleated RBC x10^3/uL Nucleated RBC % /100WBC VBG pH (7.31-7.41) VBG pCO2 (41-51) mmHg VBG pO2 (25-47) mmHg VBG HCO3 (23-28) mmol/L VBG Total CO2 (24-29) mmol/L VBG O2 Saturation (60-80) % VBG Base Excess (-2 - +2) mmol/L Ionized Calcium (1.15-1.33) mmol/L Sodium 138 (135-145) mmol/L Potassium 4.5 (3.5-4.5) mmol/L Chloride 107 (101-111) mmol/L Carbon Dioxide 23 (21-32) mmol/L Anion Gap 8.0 (6-13) BUN 40 H (6-20) mg/dL Creatinine 1.9 H (0.6-1.3) mg/dL Estimated GFR (MDRD) 25 L (>89) Glucose 26 L* (74-104) mg/dL POC Whole Bld Glucose 115 (70-100) mg/dL Calcium 10.4 H (8.5-10.3) mg/dL Phosphorus (2.5-5.0) mg/dL Magnesium (1.7-2.3) mg/dL Total Bilirubin 0.5 (0.2-1.0) mg/dL AST 63 H (10-42) IU/L ALT 49 (10-60) IU/L Alkaline Phosphatase 275 H (42-121) IU/L Ammonia (18-72) umol/L Total Protein 6.5 (6.4-8.9) g/dL Albumin 3.5 (3.2-5.5) g/dL Globulin 3.0 (2.1-4.2) g/dL Albumin/Globulin Ratio 1.2 (1.0-2.2) TSH (0.34-5.60) uIU/mL Free T4 Direct (0.58-1.64) ng/dL Urine Color Urine Clarity (CLEAR) Urine pH (5.0-7.5) PH Ur Specific [place] (1.002-1.030) Urine Protein (NEGATIVE) mg/dL Urine Glucose (UA) (NEGATIVE) mg/dL Urine Ketones (NEGATIVE) mg/dL Urine Occult Blood (NEGATIVE) Urine Nitrite (NEGATIVE) Urine Bilirubin (NEGATIVE) Urine Urobilinogen (NORMAL) E.U./dL Ur Leukocyte Esterase (NEGATIVE) Ur Microscopic Review Urine Culture Comments Nasal Screen MRSA (PCR) NEGATIVE (NEGATIVE) Ethyl Alcohol mg/dL 11/17/24 11/17/24 11/17/24 Range/Units 23:11 22:55 22:00 WBC (4.8-10.8) x10^3/uL RBC (4.20-5.40) 10^6/uL Hgb (12.0-16.0) g/dL Hct (37.0-47.0) % MCV (81.0-99.0) fL MCH (27.0-31.0) pg MCHC (32.0-36.0) g/dL RDW (12.0-15.0) % Plt Count (130-450) 10^3/uL MPV (7.9-10.8) fL Neut # (Auto) (1.5-6.6) 10^3/uL Lymph # (Auto) (1.5-3.5) 10^3/uL [place] # (Auto) (0.0-1.0) 10^3/uL Eos # (Auto) (0.0-0.7) 10^3/uL Baso # (Auto) (0.0-0.1) 10^3/uL Absolute Nucleated RBC x10^3/uL Nucleated RBC % /100WBC VBG pH (7.31-7.41) VBG pCO2 (41-51) mmHg VBG pO2 (25-47) mmHg VBG HCO3 (23-28) mmol/L VBG Total CO2 (24-29) mmol/L VBG O2 Saturation (60-80) % VBG Base Excess (-2 - +2) mmol/L Ionized Calcium (1.15-1.33) mmol/L Sodium (135-145) mmol/L Potassium (3.5-4.5) mmol/L Chloride (101-111) mmol/L Carbon Dioxide (21-32) mmol/L Anion Gap (6-13) BUN (6-20) mg/dL Creatinine (0.6-1.3) mg/dL Estimated GFR (MDRD) (>89) Glucose (74-104) mg/dL POC Whole Bld Glucose 157 166 270 (70-100) mg/dL Calcium (8.5-10.3) mg/dL Phosphorus (2.5-5.0) mg/dL Magnesium (1.7-2.3) mg/dL Total Bilirubin (0.2-1.0) mg/dL AST (10-42) IU/L ALT (10-60) IU/L Alkaline Phosphatase (42-121) IU/L Ammonia (18-72) umol/L Total Protein (6.4-8.9) g/dL Albumin (3.2-5.5) g/dL Globulin (2.1-4.2) g/dL Albumin/Globulin Ratio (1.0-2.2) TSH (0.34-5.60) uIU/mL Free T4 Direct (0.58-1.64) ng/dL Urine Color Urine Clarity (CLEAR) Urine pH (5.0-7.5) PH Ur Specific [place] (1.002-1.030) Urine Protein (NEGATIVE) mg/dL Urine Glucose (UA) (NEGATIVE) mg/dL Urine Ketones (NEGATIVE) mg/dL Urine Occult Blood (NEGATIVE) Urine Nitrite (NEGATIVE) Urine Bilirubin (NEGATIVE) Urine Urobilinogen (NORMAL) E.U./dL Ur Leukocyte Esterase (NEGATIVE) Ur Microscopic Review Urine Culture Comments Nasal Screen MRSA (PCR) (NEGATIVE) Ethyl Alcohol mg/dL 11/17/24 11/17/24 11/17/24 Range/Units 21:54 20:34 18:46 WBC (4.8-10.8) x10^3/uL RBC (4.20-5.40) 10^6/uL Hgb (12.0-16.0) g/dL Hct (37.0-47.0) % MCV (81.0-99.0) fL MCH (27.0-31.0) pg MCHC (32.0-36.0) g/dL RDW (12.0-15.0) % Plt Count (130-450) 10^3/uL MPV (7.9-10.8) fL Neut # (Auto) (1.5-6.6) 10^3/uL Lymph # (Auto) (1.5-3.5) 10^3/uL [place] # (Auto) (0.0-1.0) 10^3/uL Eos # (Auto) (0.0-0.7) 10^3/uL Baso # (Auto) (0.0-0.1) 10^3/uL Absolute Nucleated RBC x10^3/uL Nucleated RBC % /100WBC VBG pH (7.31-7.41) VBG pCO2 (41-51) mmHg VBG pO2 (25-47) mmHg VBG HCO3 (23-28) mmol/L VBG Total CO2 (24-29) mmol/L VBG O2 Saturation (60-80) % VBG Base Excess (-2 - +2) mmol/L Ionized Calcium (1.15-1.33) mmol/L Sodium (135-145) mmol/L Potassium 5.9 H 6.3 H* (3.5-4.5) mmol/L Chloride (101-111) mmol/L Carbon Dioxide (21-32) mmol/L Anion Gap (6-13) BUN (6-20) mg/dL Creatinine (0.6-1.3) mg/dL Estimated GFR (MDRD) (>89) Glucose (74-104) mg/dL POC Whole Bld Glucose 31 (70-100) mg/dL Calcium (8.5-10.3) mg/dL Phosphorus (2.5-5.0) mg/dL Magnesium (1.7-2.3) mg/dL Total Bilirubin (0.2-1.0) mg/dL AST (10-42) IU/L ALT (10-60) IU/L Alkaline Phosphatase (42-121) IU/L Ammonia (18-72) umol/L Total Protein (6.4-8.9) g/dL Albumin (3.2-5.5) g/dL Globulin (2.1-4.2) g/dL Albumin/Globulin Ratio (1.0-2.2) TSH (0.34-5.60) uIU/mL Free T4 Direct (0.58-1.64) ng/dL Urine Color Urine Clarity (CLEAR) Urine pH (5.0-7.5) PH Ur Specific [place] (1.002-1.030) Urine Protein (NEGATIVE) mg/dL Urine Glucose (UA) (NEGATIVE) mg/dL Urine Ketones (NEGATIVE) mg/dL Urine Occult Blood (NEGATIVE) Urine Nitrite (NEGATIVE) Urine Bilirubin (NEGATIVE) Urine Urobilinogen (NORMAL) E.U./dL Ur Leukocyte Esterase (NEGATIVE) Ur Microscopic Review Urine Culture Comments Nasal Screen MRSA (PCR) (NEGATIVE) Ethyl Alcohol mg/dL 11/17/24 11/17/24 Range/Units 15:50 15:40 WBC 4.4 L (4.8-10.8) x10^3/uL RBC 3.69 L (4.20-5.40) 10^6/uL Hgb 10.6 L (12.0-16.0) g/dL Hct 34.2 L (37.0-47.0) % MCV 92.7 (81.0-99.0) fL MCH 28.7 (27.0-31.0) pg MCHC 31.0 L (32.0-36.0) g/dL RDW 17.5 H (12.0-15.0) % Plt Count 54 L (130-450) 10^3/uL MPV 13.0 H (7.9-10.8) fL Neut # (Auto) 3.5 (1.5-6.6) 10^3/uL Lymph # (Auto) 0.4 L (1.5-3.5) 10^3/uL [place] # (Auto) 0.4 (0.0-1.0) 10^3/uL Eos # (Auto) 0.1 (0.0-0.7) 10^3/uL Baso # (Auto) 0.0 (0.0-0.1) 10^3/uL Absolute Nucleated RBC 0.03 x10^3/uL Nucleated RBC % 0.7 /100WBC VBG pH 7.308 L (7.31-7.41) VBG pCO2 43.5 (41-51) mmHg VBG pO2 43.6 (25-47) mmHg VBG HCO3 21.3 L (23-28) mmol/L VBG Total CO2 22.6 L (24-29) mmol/L VBG O2 Saturation 76.0 (60-80) % VBG Base Excess -4.8 L (-2 - +2) mmol/L Ionized Calcium (1.15-1.33) mmol/L Sodium 138 (135-145) mmol/L Potassium 6.5 H* (3.5-4.5) mmol/L Chloride 107 (101-111) mmol/L Carbon Dioxide 24 (21-32) mmol/L Anion Gap 7.0 (6-13) BUN 42 H (6-20) mg/dL Creatinine 1.9 H (0.6-1.3) mg/dL Estimated GFR (MDRD) 25 L (>89) Glucose 66 L (74-104) mg/dL POC Whole Bld Glucose (70-100) mg/dL Calcium 9.9 (8.5-10.3) mg/dL Phosphorus (2.5-5.0) mg/dL Magnesium (1.7-2.3) mg/dL Total Bilirubin 0.6 (0.2-1.0) mg/dL AST 73 H (10-42) IU/L ALT 54 (10-60) IU/L Alkaline Phosphatase 305 H (42-121) IU/L Ammonia 13.5 L (18-72) umol/L Total Protein 7.1 (6.4-8.9) g/dL Albumin 3.8 (3.2-5.5) g/dL Globulin 3.3 (2.1-4.2) g/dL Albumin/Globulin Ratio 1.2 (1.0-2.2) TSH (0.34-5.60) uIU/mL Free T4 Direct (0.58-1.64) ng/dL Urine Color LT. YELLOW Urine Clarity CLEAR (CLEAR) Urine pH 6.0 (5.0-7.5) PH Ur Specific [place] 1.015 (1.002-1.030) Urine Protein NEGATIVE (NEGATIVE) mg/dL Urine Glucose (UA) NEGATIVE (NEGATIVE) mg/dL Urine Ketones NEGATIVE (NEGATIVE) mg/dL Urine Occult Blood NEGATIVE (NEGATIVE) Urine Nitrite NEGATIVE (NEGATIVE) Urine Bilirubin NEGATIVE (NEGATIVE) Urine Urobilinogen 0.2 (NORMAL) (NORMAL) E.U./dL Ur Leukocyte Esterase NEGATIVE (NEGATIVE) Ur Microscopic Review NOT INDICATED Urine Culture Comments NOT INDICATED Nasal Screen MRSA (PCR) (NEGATIVE) Ethyl Alcohol < 10.0 mg/dL Diagnostic Imaging Diagnostic Imaging Results: positive Final report reviewed Assessment/Plan Problem List (1) Mobitz type II atrioventricular block: Impression: Overnight, patient went into Mobitz type II AV block. She has had a getting episodes of sinus bradycardia with sinus pauses. Her blood pressure is also decreasing. Dopamine ordered for MAP less than 65, heart rate sustaining less than 40. Cardiology called at [facility] where she was last seen, awaiting callback. (2) Encephalopathy acute: Impression: Patient presents with worsening mentation; she is more lethargic this morning. CT head, CT cervical spine without any acute abnormalities. No focal neurological deficits. TSH done 10/11 was within normal limits. Repeat ordered, was low - will hold levothyroxine at this time. Alcohol level was negative. Drug screen ordered, pending. At this point, we will likely attributed to uremia vs. bradycardia. Patient received 1 dose of IV Lasix. Will hold at this time. Continue IVF. (3) Miick-am-mbkuelg kidney injury: Impression: Patient's creatinine is mildly elevated from baseline. Continue to trend. Continue to avoid nephrotoxic agents. Bladder scan ordered to assess for retention, negative. Received IV fluids and Lasix in the ED. Per daughter, eating less and drinking less at home. Continue to trend. Continue IVF. Qualifiers: Acute renal failure type: unspecified Chronic kidney disease stage: s tage 3 (moderate) Chronic kidney disease stage 3 subtype: unspecified whether 3a or 3b Qualified Code(s): N17.9 - Acute kidney failure, unspecified; N18.30 - Chronic kidney disease, stage 3 unspecified (4) Acute hyperkalemia: Impression: Patient with elevated potassium likely due to acute kidney injury when admitted. Improving. Received IV fluids. Continue to trend - continue Lokelma. (5) Chronic kidney disease, stage 3b: Impression: See above. (6) Heart failure with reduced ejection fraction: Impression: Continue Lasix. Continue to hold spironolactone. (7) Aortic stenosis, severe: Impression: Replaced in 06/2024. Continue to monitor.
[2024-11-18] MEDS: SODIUM CHLORIDE 0.9% 1,000 ML IV SCH (12:23)
[2024-11-18] MEDS: DOPamine 400 MG/250 ML 400 MG/250 ML BAG IV SCH (12:33)
--- NOTE | 2024-11-18 13:51 | PHARMACY PROGRESS NOTE ---
Best Possible Medication History Admit Date and Time: 11/17/24 1659 Home Medications Medication Instructions Recorded Confirmed Type Permanent Disabled Placard 08/26/24 11/04/24 History levothyroxine 88 mcg tablet 88 mcg PO QDAY 08/26/24 11/18/24 History atorvastatin 40 mg tablet (Lipitor) 40 mg PO QPM 08/27/24 11/18/24 History polyethylene glycol 3350 17 gram 17 g PO QDAY PRN constipation #100 08/27/24 11/18/24 Rx oral powder packet (Miralax) ea aspirin 81 mg tablet,delayed 81 mg PO QDAY 10/05/24 11/18/24 History release ferrous sulfate 325 mg (65 mg 325 mg PO QDAY 10/05/24 11/18/24 History iron) tablet (FeroSul) miconazole nitrate 2 % topical 1 applic topical BID PRN rash 10/05/24 11/18/24 History powder (Antifungal (miconazole)) mirtazapine 7.5 mg tablet 7.5 mg PO .QHS 10/05/24 11/18/24 History pantoprazole 20 mg tablet,delayed 20 mg PO QDAY 10/05/24 11/18/24 History release sennosides 8.6 mg tablet (senna) 17.2 mg PO BID PRN constipation 10/05/24 11/18/24 History furosemide 40 mg tablet 20 mg PO QDAY PRN weight gain 11/04/24 11/18/24 History alendronate 70 mg tablet 70 mg PO OAW 11/18/24 11/18/24 History Processed by: Pharmacy (Medication Reconciliation completed by geothermal field technicianCharity) Medications reviewed in ED?: No Medication History completed: Yes Patient Interview: Pt unable to participate Secondary Source(s): Other family member (Patient's daughter. Of note: see recent fill hx of amlodipine 5mg tabs and losartan 100mg tabs but patient's daughter states she has not been getting these) [facility] Statement: As the person ultimately responsible for medication therapy, providers are able to order a medication from an existing home medication list in [facility] via the "Reconcile Routine" prior to Confirmation of that medication by client support manager. Such practice is discouraged except when the physician, in their clinical judgment, deems that a medical need exists for a medication without regard to previous use.
--- NOTE | 2024-11-18 14:57 | Discharge Summary ---
"Discharge Summary Admit Date: 11/17/24 Discharge Date: 11/18/24 Discharging Provider: Dr. Bunny Gonzalez Code Status: Attempt Resuscitation Discharge Facility Name: [facility] DIAGNOSES Admission Diagnoses: Acute encephalopathy Acute on chronic kidney injury Acute hyperkalemia Chronic kidney disease, stage IIIb Heart failure with reduced ejection fraction Severe arctic stenosis s/p TAVR Discharge Diagnoses with Status of Each Condition: Mobitz type II atrioventricular blockovernight, patient went to type II block. She has having multiple episodes of sinus bradycardia, sinus pauses. Blood pressure also decreasing. Spoke with cardiology at [facility], agreeable to transfer for possible pacemaker placement, need for TVP. Acute encephalopathypatient continues to be lethargic. CT head, CT cervical spine without any abnormalities. TSH mildly low, T4 mildly elevated. Levothyroxine held this morning. Alcohol level negative, UA shows no infection. No leukocytosis either. Acute on chronic kidney injurystable. Bladder scan does show it retention, Ritchie was placed. Continue IV fluids. Acute hyperkalemiaresolved. Continue daily Lokelma. Chronic kidney disease, stage IIIbstable. Heart failure with reduced ejection fractionLasix currently held, continue to hold spironolactone. Aortic stenosis s/p TAVR in 06/2024stable, continue to monitor. HPI History of Present Illness: Patient is a 88-year-old female with a history of heart failure with reduced ejection fraction, recent GI bleed, aortic stenosis s/p TAVR who presented after being found to be altered from baseline mental status. Her daughter, Mayda, is at bedside, and provides most of the history. Per patient's daughter, she has been feeling more weak for the past 1 week. She is having trouble staying awake. She is taking longer to go up the stairs. She is having more falls. She is more unsteady on her feet. When patient spoken with, she is alert and oriented x 4, but she is going in and out of sleep. She denies any fevers, chills. She has not missed any doses of her Lasix; her daughter does help with her medications. Her daughter did state that she noticed that her lower extremities are warm and more swollen. She is not sure how much urine she is making. She usually wears depends diapers, so it is hard to quantify. She has been eating and drinking the same amount. In the ED, she was vitally stable, blood pressure 130/71, saturating 98% on room air, the heart rate of 75. Her heart rate was irregularly irregular, and she is a known history of atrial fibrillation. Due to her recent falls, head CT and cervical spine CT were done which showed no acute abnormalities. Her cervical CT did show advanced cervical spondylosis, as well as moderate canal stenosis at C1, C2, C5-C6. Lab work was done which showed creatinine of 1.9, little above baseline. Her potassium was elevated at 6.5. EKG is pending. CONSULTS | PROCEDURES Consultations: [facility] Cardiology Procedures: Head CT, cervical spine CT HOSPITAL COURSE Hospital Course: Patient is a 88-year-old female with a history of heart failure with reduced ejection fraction, aortic stenosis s/p TAVR, atrial fibrillation who presents with altered mentation. Daughter is at bedside, and states that she is more lethargic than usual. At baseline, she is able to converse, walk up and down stairs, etc. For the past 2 to 3 days, she has been lethargic, sleeping more. She is responsive to verbal stimuli, but fades off during conversation. When she was first admitted, her creatinine was found to be slightly elevated from her baseline 1.7 at 1.9. Her potassium was elevated at 6.4. She required 3 doses of Lokelma, 2 doses of calcium gluconate for this to come down. Overnight, however, she continued to have episodes of bradycardia with heart rates down to the mid 20s. She then went to a Mobitz type II block. She was transferred to the ICU for closer monitoring. This morning, patient continues to be lethargic. Her blood pressure is also decreasing. As such, [facility], where the patient was recently at was spoken with. 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 They were agreeable to accept the transfer. Patient's daughter, Mayda, was informed of the above. She is agreeable with the plan of the transfer. ALLERGIES Allergies Allergy/AdvReac Type Severity Reaction Status Date / Time lisinopril Allergy Cough Verified 11/17/24 15:18 metoprolol Allergy Unknown Verified 11/17/24 15:18 MEDICATIONS Ambulatory Orders Medication Instructions Recorded Confirmed Permanent Disabled Placard 08/26/24 11/04/24 levothyroxine 88 mcg tablet 88 mcg PO QDAY 08/26/24 11/18/24 atorvastatin 40 mg tablet (Lipitor) 40 mg PO QPM 08/27/24 11/18/24 polyethylene glycol 3350 17 gram 17 g PO QDAY PRN constipation #100 08/27/24 11/18/24 oral powder packet (Miralax) ea aspirin 81 mg tablet,delayed 81 mg PO QDAY 10/05/24 11/18/24 release ferrous sulfate 325 mg (65 mg 325 mg PO QDAY 10/05/24 11/18/24 iron) tablet (FeroSul) miconazole nitrate 2 % topical 1 applic topical BID PRN rash 10/05/24 11/18/24 powder (Antifungal (miconazole)) mirtazapine 7.5 mg tablet 7.5 mg PO .QHS 10/05/24 11/18/24 pantoprazole 20 mg tablet,delayed 20 mg PO QDAY 10/05/24 11/18/24 release sennosides 8.6 mg tablet (senna) 17.2 mg PO BID PRN constipation 10/05/24 11/18/24 furosemide 40 mg tablet 20 mg PO QDAY PRN weight gain 11/04/24 11/18/24 alendronate 70 mg tablet 70 mg PO OAW 11/18/24 11/18/24 PHYSICAL EXAM AT DISCHARGE General Appearance: positive No acute distress and Lethargic Eyes Bilateral: positive Normal inspection, PERRL and EOMI ENT: positive ENT inspection nml, Pharynx nml and No signs of dehydration Neck: positive Nml inspection, Thyroid nml and Trachea midline Respiratory: positive Chest non-tender, No respiratory distress and Breath sounds nml; negative Wheezes, Rales or Rhonchi Cardiovascular: positive No murmur, No gallop, Irregularly irregular and Bradycardia Peripheral Pulses: positive 2+ Abdomen: positive Non-tender; negative Rebound, Hepatomegaly or Splenomegaly Skin: positive Color nml, No rash, Warm and Dry Extremities: positive Non-tender, Full ROM, Nml appearance and No pedal edema Neurologic/Psychiatric: positive Disoriented to person and Weakness; negative Disoriented to place or Disoriented to time LABS 11/18/24 05:20 11/18/24 05:20 DIAGNOSTIC IMAGING Diagnostic Imaging Results: Final report reviewed QUALITY (Female Hip Fx Only) Was patient sent home on osteoporosis medication?: No FOLLOW UP Follow Up: Follow up with cardiology, PCP. TIME SPENT Time Spent in Discharge (Minutes): 45 (Time spent coordinating transfer to [facility], relaying information to family etc.) Discharge Plan Discharge Patient Disposition: 02 Transfer Acute Care Hosp Condition: Serious Prescriptions: New Lokelma 5 gram Powder In Packet 10 g PO DAILY Qty: 30 0RF Continued (DME) Permanent Disabled Placard Misc See Rx Instructions .Route Rx Instructions: As directed atorvastatin [Lipitor] 40 mg tablet 40 mg PO QPM pantoprazole 20 mg tablet,delayed release (DR/EC) 20 mg PO QDAY miconazole nitrate [Antifungal (miconazole)] 2 % powder 1 applic topical BID PRN (Reason: rash) Patient Comments: Updated at [facility] 09/30/24 Rx Instructions: Apply to groin as needed mirtazapine 7.5 mg tablet 7.5 mg PO .QHS aspirin 81 mg tablet,delayed release (DR/EC) 81 mg PO QDAY Patient Comments: Updated at [facility] 09/30/24 ferrous sulfate [FeroSul] 325 mg (65 mg iron) tablet 325 mg PO QDAY Patient Comments: take 1 tablet by mouth once daily with [employer] AT DINNER TIME ... (REFER TO PRESCRIPTION NOTES). Held levothyroxine 88 mcg tablet 88 mcg PO QDAY Hold Instructions: Resume on 12/11/24. Recheck TSH, T4 prior to initiating. Rx Instructions: Take 1 tablet by mouth once a day Discontinued alendronate 70 mg tablet 70 mg PO OAW polyethylene glycol 3350 [Miralax] 17 gram powder in packet 17 g PO QDAY PRN (Reason: constipation) Qty: 100 0RF sennosides [senna] 8.6 mg tablet 17.2 mg PO BID PRN (Reason: constipation) Patient Comments: Updated at [facility] 09/30/24 furosemide 40 mg tablet 20 mg PO QDAY PRN (Reason: weight gain) Patient Comments: Updated at [facility] 09/30/24 Rx Instructions: If weight increases above 3 lbs in 2 days, take. Activity Restrictions: Activity as Tolerated Diet: Cardiac Health Concerns: You came in because your daughter thought you weren't acting like yourself, you were a little confused and more tired. You were found to have high potassium. We gave you medicine for this. This started to get better. Overnight, it was noted that your heart rate was slow. We talked about how we need you to go to a hospital with a heart doctor (a shot core drill operator helper). We spoke with a shot core drill operator helper at [facility] and they accepted the transfer. Thank you for allowing us to take care of you. We hope you feel better. Print Language: Greenlandic Patient Instructions: Hyperkalemia Dc, Heart Block 2nd Degree Stand Alone Forms: PCP List"
[2024-11-18 15:13] VITALS: BP 119/52
[2024-11-18 15:15] VITALS: TEMP 90; O2SAT 99
== END 2024-11-18 15:52 | disposition short-term general hospital (02) | DRG 309 ==
LOC: ED 14:52 → MS2 16:59 → ICU 11-18 00:20
PROVIDERS: ADMIT Internal Medicine; ATTEND Internal Medicine
DX: N18.32 Chronic kidney disease, stage 3b; I48.91 Unspecified atrial fibrillation; D64.9 Anemia, unspecified; I49.5 Sick sinus syndrome; E87.5 Hyperkalemia; M48.02 Spinal stenosis, cervical region; I50.30 Unspecified diastolic (congestive) heart failure; E03.9 Hypothyroidism, unspecified; I25.10 Atherosclerotic heart disease of native coronary artery without angina pectoris; R53.83 Other fatigue; N18.30 Chronic kidney disease, stage 3 unspecified; Z87.891 Personal history of nicotine dependence; I50.20 Unspecified systolic (congestive) heart failure; R26.81 Unsteadiness on feet; M47.812 Spondylosis without myelopathy or radiculopathy, cervical region; N17.9 Acute kidney failure, unspecified; G93.40 Encephalopathy, unspecified; Z95.2 Presence of prosthetic heart valve; R00.1 Bradycardia, unspecified; Z95.1 Presence of aortocoronary bypass graft; D72.810 Lymphocytopenia; I44.1 Atrioventricular block, second degree; R00.8 Other abnormalities of heart beat; Z91.81 History of falling